=== PATIENT | male | born 1960 | race Caucasian/White ===

== ENCOUNTER 2019-02-27 16:33 | Emergency (ER) | payer OTHER ==
[~2019-02-27] VITALS: Ht 170.2 cm; Wt 95.2 kg
--- OUTSIDE RECORDS SUMMARY | ~2019-02-27 | XMS | Encounter Summary ---
Demographics + + + | Address | [address] | | | [place] [address] | + + + | Home Phone | | + + + | Preferred Language | Unknown | + + + | Marital Status | | + + + | Worship Affiliation | 1077 | + + + | Race | Unknown | + + + | Ethnic Group | Unknown | + + + Author + + + | Author | [facility] | | | and [place] | + + + | Organization | [facility] | | | and [place] | + + + | Address | Unknown | + + + | Phone | Unavailable | + + + Support + + + + + | Name | Relationship | Address | Phone | + + + + + | Aarti Hooks | ECON | [address] | | | | | [place] | | | | | [address] | | + + + + + Care Team Providers + +------+ + | Care Motorcycle Delivery Driver Name | Role | Phone | + [...] | Blood in | | [address], | | | | | stool Colon | | [place] [address] | | | | | cancer | | [place], | | | | | screening | | [place] [address] | | | | | Pacemaker | | Phone: | | | | | [Z95.0]Blood | | [phone] | | | | | in stool | | Fax: | | | | | [K92.1]Colon | | [phone] | | | | | cancer | | | | | | | screening | | | | | | | [Z12.11] | | | +--------+--------+ + + + + Encounter Details +--------+ + + + + | Date | Type | Department | Care Team | Description | +--------+ + + + + | 02/22/ | Hospital | [facility] | Gabe Lawton MD | Special screening | | 2015 | Encounter | MED CTR MP INTRA OP | [address], [place] | for malignant | | | | [address] | [address] [place], [place] | neoplasms, colon | | | | [place], [place] | [address] | (Primary Dx); Heme | | | | [address] | | positive stool | | | | [phone] | | | +--------+ + + + [...] [place] | | | | | | [address] | | | | | | | [...] [address] | [place] | [phone] | | [facility] | | [address] | | | - LABORATORY | | | | + + + + + EGD (02/22/2015 8:55 AM PST) + + | Specimen | + + | | + + + + -+ | Narrative | Performed At | + + -+ | | [facility] | | GastroenterologyPatient Name: Adis HooksProcedure Date: 02/22/2015 | [facility] | | 8:55 AMMRN: [id number] #: [id number] of : | | | 1Admit Type: AmbulatoryAge: 54Room: [facility] 01Gender: MaleNote | | | Status: FinalizedAttending MD: Gabe Lawton, MDProcedure: | | | Upper GI endoscopyIndications: Heme positive | | | stoolProviders: Gabe Lawton MD, Kerry Fall | | | NIKITA Goldberg, Angie Jackson, | | | Poured Wall Foreman, Renard Chow MD (Anesthesia | | | [...] the anesthesiologist and | | | the oncology technician in the endoscopy suite. Mental Status [...] Scope In: 9:09:15 AMScope Out: 9:12:40 AM [facility]. | | | [facility], [address] [place] [address] | | | [phone] | | | - Continue present medications. [...] |Scope Out: 9:12:40 AM | | | [facility]. [facility], [address] [place] [address] | | | [address] | | + + -+ + +---------+ [...] 02/22/2015 | [facility] | | 8:55 AMMRN: [id number] #: [id number] of : | | | 1Admit Type: AmbulatoryAge: 54Room: [facility] 01Gender: MaleNote | | | Status: FinalizedAttending MD: JOSE JUAN Baileyrocedure: | | | ColonoscopyIndications: Screening for colorectal malignant | | | neoplasmProviders: Gabe Lawton MD, Kerry Fall | | | NIKITA Goldberg, Angie Jackson, | | | Poured Wall Foreman, Renard Chow MD (Anesthesia | | | [...] the anesthesiologist and the | | | oncology technician in the endoscopy suite. Mental Status [...] AMScope Out: 9:23:26 AM | | | [facility] [address] [place], [place] | | | [address] | | | anti-inflammatory drugs for 7 [...] |Scope Out: 9:23:26 AM | | | [facility], [address] [facility] [address], [place], [place] | | | [address] | | + + -+ + +---------+ [...] POLYP SPECIMEN SOURCE: A. SIGMOID POLYP | [place] PATH[place] | | CLINICAL HISTORY: Z95.0 (presence [...] | | | Tubular adenoma (1 fragment). JVR:[facility]:C2NR GROSS | | | DESCRIPTION: Received in formalin labeled "Adis Sheets" and "sigmoid | | | polyp" on the requisition is a 0.3 x 0.3 x 0.2 cm pink-quintero tissue | | | fragment, submitted, all in (A1). ka:JVR:[facility] PERFORMING | | | LABORATORY: Tissue processing and slide preparation were performed by | | | [email or web address], [address], [place] [address] | | | (Benefit Authorizer: Easton Diallo M.D. CLIA#: [id number]). | | | Professional interpretation was performed by [email or web address], | | | [facility], [address] | | | [place] [address] (Benefit Authorizer: Easton Diallo M.D.; CLIA#: | | | [id number]). Diagnostician: Easton Diallo MD Pathologist | | [...]
--- OUTSIDE RECORDS SUMMARY | ~2019-02-27 | XMS | Encounter Summary ---
Demographics + + + | Address | [address] | | | [place] [address] | + + + | Home Phone | | + + + | Preferred Language | Unknown | + + + | Marital Status | | + + + | Holiness Affiliation | 1077 | + + + | Race | Unknown | + + + | Ethnic Group | Unknown | + + + Author + + + | Author | [facility] | | | and [place] | + + + | Organization | [facility] | | | and [place] | + + + | Address | Unknown | + + + | Phone | Unavailable | + + + Support + + + + + | Name | Relationship | Address | Phone | + + + + + | Aarti Sheets | ECON | [address] | | | | | [place] | | | | | [address] | | + + + + + Care Team Providers + +------+ + | Care Case Management Specialist Name | Role | Phone | + +------+ + PCP | Unavailable | + +------+ + Encounter Details +--------+ + + + + | Date | Type | Department | Care Team | Description | +--------+ + + + + | 10/13/ | Hospital | [facility] | | | | 1995 - | Encounter | MED CTR GENERIC IP | | | | | | CONV DEPT [address] | | | | 08/15/ | | [place], | | | | 1995 | | [place] [address] | | | | | | [phone] | | | +--------+ + + + + Social History + +-------+ +--------+------+ | Tobacco Use | Types | Packs/Day | Years | Date | | | | | Used | | + +-------+ +--------+------+ | Never Assessed | | | | | + +-------+ [...] | | | | | [place] | | | | | | [address] | | | | | | | | +--------+---------+ + + + documented as of this encounter Visit Diagnoses Not on filedocumented in this encounter"
--- OUTSIDE RECORDS SUMMARY | ~2019-02-27 | XMS | Encounter Summary ---
Demographics + + + | Address | [address] | | | [place] [address] | + + + | Home Phone | | + + + | Preferred Language | Unknown | + + + | Marital Status | | + + + | Mosque Affiliation | 1077 | + + + | Race | Unknown | + + + | Ethnic Group | Unknown | + + + Author + + + | Author | [facility] | | | and [place] | + + + | Organization | [facility] | | | and [place] | + + + | Address | Unknown | + + + | Phone | Unavailable | + + + Support + + + + + | Name | Relationship | Address | Phone | + + + + + | Aarti Hooks | ECON | [address] | | | | | [place] | | | | | [address] | | + + + + + Care Team Providers + +------+ + | Care Rural Health Consultant Name | Role | Phone | + [...] Medication Refill; | | 2018 | | [facility] | E, DO [address] | Medication Refill | | | | MEDICAL CLINIC [address] | [place], [place] | | | | | [address] [facility], | [address] | | | | | [place] [address] | [phone] | | | | | [phone] | | | +--------+--------+ + + + [...] [place] | | | | | | [address] | | | | | | | | +--------+---------+ + + + documented as of this encounter Visit Diagnoses Not on filedocumented in this encounter"
--- OUTSIDE RECORDS SUMMARY | ~2019-02-27 | XMS | Encounter Summary ---
Demographics + + + | Address | [address] | | | [place] [address] | + + + | Home Phone | | + + + | Preferred Language | Unknown | + + + | Marital Status | | + + + | Adventism Affiliation | 1077 | + + + | Race | Unknown | + + + | Ethnic Group | Unknown | + + + Author + + + | Author | [facility] | | | and [place] | + + + | Organization | [facility] | | | and [place] | + + + | Address | Unknown | + + + | Phone | Unavailable | + + + Support + + + + + | Name | Relationship | Address | Phone | + + + + + | Aarti Hooks | ECON | [address] | | | | | [place] | | | | | [address] | | + + + + + Care Team Providers + +------+ + | Care Art Class Model Name | Role | Phone | + [...] Description | +--------+--------+ + + + | 09/02/ | Refill | [facility] | Raul Pate | Medication Refill | | 2018 | | [facility] | E, DO [address] | | | | | MEDICAL CLIN[address] | [place], [place] | | | | | [address] [place], | [address] | | | | | [place] [address] | [phone] | | | | | [phone] | | | +--------+--------+ + + + [...] [place] | | | | | | [address] | | | | | | | | +--------+---------+ + + + documented as of this encounter Visit Diagnoses Not on filedocumented in this encounter"
--- OUTSIDE RECORDS SUMMARY | ~2019-02-27 | XMS | Encounter Summary ---
Demographics + + + | Address | [address] | | | [place] [address] | + + + | Home Phone | | + + + | Preferred Language | Unknown | + + + | Marital Status | | + + + | Hoahaoism Affiliation | 1077 | + + + | Race | Unknown | + + + | Ethnic Group | Unknown | + + + Author + + + | Author | [facility] | | | and [place] | + + + | Organization | [facility] | | | and [place] | + + + | Address | Unknown | + + + | Phone | Unavailable | + + + Support + + + + + | Name | Relationship | Address | Phone | + + + + + | Aarti Hooks | ECON | [address] | | | | | [place] | | | | | [address] | | + + + + + Care Team Providers + +------+ + | Care Bakery Manager Name | Role | Phone | + [...] Medication Refill | | 2018 | | [facility] | CC REAL ESTATE SALES SUPERVISOR | | | | | MEDICAL CLINIC [address] | | | | | | [address]TH [facility], | | | | | | [place] [address] | | | | | | [phone] | | | +--------+--------+ + + + [...] [place] | | | | | | [address] | | | | | | | | +--------+---------+ + + + documented as of this encounter Visit Diagnoses Not on filedocumented in this encounter"
--- OUTSIDE RECORDS SUMMARY | ~2019-02-27 | XMS | Encounter Summary ---
Demographics + + + | Address | [address] | | | [place] [address] | + + + | Home Phone | | + + + | Preferred Language | Unknown | + + + | Marital Status | | + + + | Mosque Affiliation | 1077 | + + + | Race | Unknown | + + + | Ethnic Group | Unknown | + + + Author + + + | Author | [facility] | | | and [place] | + + + | Organization | [facility] | | | and [place] | + + + | Address | Unknown | + + + | Phone | Unavailable | + + + Support + + + + + | Name | Relationship | Address | Phone | + + + + + | Aarti Hooks | ECON | [address] | | | | | [place] | | | | | [address] | | + + + + + Care Team Providers + +------+ + | Care Busgirl Name | Role | Phone | + +------+ + | Raul Pate DO | PCP | | + +------+ + Reason for Visit + + + | Reason | Comments | + + + | Device Check | | + + + Encounter Details +--------+ + + + + | Date | Type | Department | Care Team | Description | +--------+ + + + + | 01/05/ | Telephone | [facility] | Toni Durand, | Device Check | | 2019 | | CARDIOLOGY [facility] | [address] | | | | | [address] | [place], [place] | | | | | [place], [place] | [address] | | | | | [address] | | | | | | [phone] | | | +--------+ + + + [...] [place] | | | | | | [address] | | | | | | | | +--------+---------+ + + + documented as of this encounter Visit Diagnoses Not on filedocumented in this encounter"
--- OUTSIDE RECORDS SUMMARY | ~2019-02-27 | XMS | Encounter Summary ---
Demographics + + + | Address | [address] | | | [place] [address] | + + + | Home Phone | | + + + | Preferred Language | Unknown | + + + | Marital Status | | + + + | Confucianism Affiliation | 1077 | + + + | Race | Unknown | + + + | Ethnic Group | Unknown | + + + Author + + + | Author | [facility] | | | and [place] | + + + | Organization | [facility] | | | and [place] | + + + | Address | Unknown | + + + | Phone | Unavailable | + + + Support + + + + + | Name | Relationship | Address | Phone | + + + + + | Aarti Hooks | ECON | [address] | | | | | [place] | | | | | [address] | | + + + + + Care Team Providers + +------+ + | Care Cook Boat Name | Role | Phone | + +------+ + | Raul Pate DO | PCP | | + +------+ + Reason for Visit +--------+ + | Reason | Comments | +--------+ + | Rash | | +--------+ + Encounter Details +--------+---------+ + + + | Date | Type | Department | Care Team | Description | +--------+---------+ + + + | 05/27/ | Office | [facility] | Robert, | Cellulitis of left | | 2019 | Visit | [facility] | [facility], [address] | lower limb (Primary | | | | MEDICAL CLIN[address] | [address] [place] | Dx) | | | | [address] [place], | [place] [address] | | | | | [place] [address] | [phone] | | | | | [phone] | | | +--------+---------+ + + + Social History + +-------+ [...] + + + | Blood Pressure | 108/70 | 05/27/2018 10:40 AM | | | | | PDT | | + + + + + | Pulse | 61 | 05/27/2018 10:40 AM | | | | | PDT | | + + + + + | Temperature | 36.6 C (97.8 F) | 05/27/2018 10:40 AM | | | | | PDT | | + + + + + | Respiratory Rate | 16 | 05/27/2018 10:40 AM | | | | | PDT | | + + + + + | Oxygen Saturation | 98% | 05/27/2018 10:40 AM | | | | | PDT | | + + + + + | Inhaled Oxygen | - | - | | | Concentration | | | | + + + + + | Weight | - | - | | + + + + + | Height | - | - | | + + + + + | Body Mass Index | - | - | | + + + + + documented in this encounter Progress Notes Janice Jones, ANDREW - 05/27/2018 11:00 AM PDTFormatting of this note might be differe nt from the original. Chief Complaint Patient presents with Rash Assessment 1. Cellulitis of left lower limb - sulfamethoxazole-trimethoprim (BACTRIM DS) 800-160 mg per tablet; Take 1 tablet by mouth 2 times daily for 10 days. Dispense: 20 tablet; Refill: 0 Plan - increase fluid intake - start antibiotic - RTC prn Subjective: Patient ID: Adis Hooks is a 57 y.o. male who is new to me, complains of Rash This is a new problem. Episode onset: 2 weeks ago [place] He hit th e leg and got a small cut and it bled a little and then after it got red and itchy. The affe cted locations include the left lower leg. The rash is characterized by burning, redness and itchiness. Associated with: being in the outdoors. Treatments tried: gold jansen cream. The t reatment provided no relief. he stated that last week the area was more "angry" looking than now. Objective: BP 108/70 | Pulse 61 | Temp 36.6 C (97.8 F) (Temporal) | Resp 16 | SpO2 98% Physical Exam Skin: Rash noted. Rash is macular. Patient was scratching so there are small areas with scab scattered through the inflamed ar ea Past Medical History: Diagnosis Date Allergic rhinitis Hemorrhoids Sinusitis Allergies Allergen Reactions Penicillins Hives and Rash Codeine Nausea Only Electronically signed by ANDREW Adhikari 05/27/2018 10:54 Note: Part of this report was transcribed using voice recognition software. Every effort wa s made to ensure accuracy. However, inadvertent computerized aluminum siding applicator errors may be pre sent documented constantine peguero this encounter Plan of Treatment +--------+---------+ + + + | Date | Type | Specialty | Care Team | Description | +--------+---------+ + + + | 09/21/ | Office | Cardiology | Toni Durand, | | | 2019 | Visit | | MD Jesus RUGGIERO | | | | | | [place], [place] | | | | | | [id number] | | | | | | | | +--------+---------+ + + + documented as of this encounter Visit Diagnoses + + | Diagnosis | + + | Cellulitis of left lower limb - Primary | + + documented in this encounter
--- OUTSIDE RECORDS SUMMARY | ~2019-02-27 | XMS | Encounter Summary ---
Demographics + + + | Address | [address] | | | [place] [address] | + + + | Home Phone | | + + + | Preferred Language | Unknown | + + + | Marital Status | | + + + | Anabaptist Affiliation | 1077 | + + + | Race | Unknown | + + + | Ethnic Group | Unknown | + + + Author + + + | Author | [facility] | | | and [place] | + + + | Organization | [facility] | | | and [place] | + + + | Address | Unknown | + + + | Phone | Unavailable | + + + Support + + + + + | Name | Relationship | Address | Phone | + + + + + | Aarti Hooks | ECON | [address] | | | | | [place] | | | | | [address] | | + + + + + Care Team Providers + +------+ + | Care Ux Visual Designer Name | Role | Phone | + +------+ + | Raul Pate DO | PCP | | + +------+ + Reason for Visit +---------+ + | Reason | Comments | +---------+ + | Imaging | | +---------+ + Encounter Details +--------+ + + + + | Date | Type | Department | Care Team | Description | +--------+ + + + + | 02/25/ | Telephone | [facility] | Raul Pate | Imaging | | 2019 | | [facility] | E, DO [address] | | | | | MEDICAL CLIN[facility] [address] | [place], [place] | | | | | [address] [place], | [address] | | | | | [place] [address] | [phone] | | | | | [phone] | | | +--------+ + + + [...] [place] | | | | | | [address] | | | | | | | | +--------+---------+ + + + documented as of this encounter Visit Diagnoses Not on filedocumented in this encounter"
--- OUTSIDE RECORDS SUMMARY | ~2019-02-27 | XMS | Encounter Summary ---
Demographics + + + | Address | [address] | | | [place] [address] | + + + | Home Phone | | + + + | Preferred Language | Unknown | + + + | Marital Status | | + + + | Mormon Affiliation | 1077 | + + + | Race | Unknown | + + + | Ethnic Group | Unknown | + + + Author + + + | Author | [facility] | | | and [place] | + + + | Organization | [facility] | | | and [place] | + + + | Address | Unknown | + + + | Phone | Unavailable | + + + Support + + + + + | Name | Relationship | Address | Phone | + + + + + | Aarti Hooks | ECON | [address] | | | | | [place] | | | | | [address] | | + + + + + Care Team Providers + +------+ + | Care Waistline Joiner Overlock Name | Role | Phone | + [...] Description | +--------+--------+ + + + | 10/15/ | Refill | [facility] | Raul Pate | Medication Refill | | 2018 | | [facility] | E, DO [address] | | | | | MEDICAL CLINIC [address] | [place], [place] | | | | | [address] [place], | [address] | | | | | [place] [address] | [phone] | | | | | [phone] | | | +--------+--------+ + + + [...] [place] | | | | | | [address] | | | | | | | | +--------+---------+ + + + documented as of this encounter Visit Diagnoses Not on filedocumented in this encounter"
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
--- OUTSIDE RECORDS SUMMARY | ~2019-02-27 | XMS | Encounter Summary ---
Demographics + + + | Address | [address] | | | [place] [address] | + + + | Home Phone | | + + + | Preferred Language | Unknown | + + + | Marital Status | | + + + | Restorationist Affiliation | 1077 | + + + | Race | Unknown | + + + | Ethnic Group | Unknown | + + + Author + + + | Author | [facility] | | | and [place] | + + + | Organization | [facility] | | | and [place] | + + + | Address | Unknown | + + + | Phone | Unavailable | + + + Support + + + + + | Name | Relationship | Address | Phone | + + + + + | Aarti Hooks | ECON | [address] | | | | | [place] | | | | | [address] | | + + + + + Care Team Providers + +------+ + | Care Muck Miner Blasting Name | Role | Phone | + [...] Description | +--------+--------+ + + + | 03/10/ | Refill | [facility] | Raul Pate | Medication Refill | | 2018 | | [facility] | E, DO [address] | | | | | MEDICAL CLINIC [address] | [place], [place] | | | | | [address] [place], | [address] | | | | | [place] [address] | [phone] | | | | | [phone] | | | +--------+--------+ + + + [...] | | | | | [place], [place] | | | | | | [address] | | | | | | | | +--------+---------+ + + + documented as of this encounter Visit Diagnoses + + | Diagnosis | + + | Allergic rhinitis due to other allergic trigger, unspecified seasonality | + + documented in this encounter"
--- OUTSIDE RECORDS SUMMARY | ~2019-02-27 | XMS | Encounter Summary ---
Demographics + + + | Address | [address] | | | [place] [address] | + + + | Home Phone | | + + + | Preferred Language | Unknown | + + + | Marital Status | | + + + | Muslim Affiliation | 1077 | + + + | Race | Unknown | + + + | Ethnic Group | Unknown | + + + Author + + + | Author | [facility] | | | and [place] | + + + | Organization | [facility] | | | and [place] | + + + | Address | Unknown | + + + | Phone | Unavailable | + + + Support + + + + + | Name | Relationship | Address | Phone | + + + + + | Aarti Sheets | ECON | [address] | | | | | [place] | | | | | [address] | | + + + + + Care Team Providers + +------+ + | Care Insulation Board Head Saw Operator Name | Role | Phone | + +------+ + PCP | Unavailable | + +------+ + Encounter Details +--------+ + + + + | Date | Type | Department | Care Team | Description | +--------+ + + + + | 03/30/ | Hospital | [facility] | Oneal Cuenca MD | | | 1998 - | Encounter | MED CTR MED ONC | [address] | | | | | [address] | [place] | | | 04/07/ | | [place] [address] | [address] | | | 1998 | | [phone] | | | +--------+ + + + [...] | 09/21/ | Office | Cardiology | Toin Durand, | | | 2019 | Visit | | MD Jesus RUGGIERO | | | | | | [place] | | | | | | [address] | | | | | | | | +--------+---------+ + + + documented as of this encounter Visit Diagnoses Not on filedocumented in this encounter"
--- OUTSIDE RECORDS SUMMARY | ~2019-02-27 | XMS | Encounter Summary ---
Demographics + + + | Address | [address] | | | [place] [address] | + + + | Home Phone | | + + + | Preferred Language | Unknown | + + + | Marital Status | | + + + | Rastafari Affiliation | 1077 | + + + | Race | Unknown | + + + | Ethnic Group | Unknown | + + + Author + + + | Author | [facility] | | | and [place] | + + + | Organization | [facility] | | | and [place] | + + + | Address | Unknown | + + + | Phone | Unavailable | + + + Support + + + + + | Name | Relationship | Address | Phone | + + + + + | Aarti Sheets | ECON | [address] | | | | | [place] | | | | | [address] | | + + + + + Care Team Providers + +------+ + | Care Sack Filler Name | Role | Phone | + +------+ + PCP | Unavailable | + +------+ + Encounter Details +--------+ + + + + | Date | Type | Department | Care Team | Description | +--------+ + + + + | 10/05/ | Hospital | [facility] | | | | 1994 | Encounter | MED CTR EMERGENCY | | | | | | [address] | | | | | | [place] | | | | | | [address] | | | | | | [phone] | | | +--------+ + + + [...] | | | | | [place], [place] | | | | | | [address] | | | | | | | | +--------+---------+ + + + documented as of this encounter Visit Diagnoses Not on filedocumented in this encounter"
--- OUTSIDE RECORDS SUMMARY | ~2019-02-27 | XMS | Encounter Summary ---
Demographics + + + | Address | [address] | | | [place] [address] | + + + | Home Phone | | + + + | Preferred Language | Unknown | + + + | Marital Status | | + + + | Sabianist Affiliation | 1077 | + + + [...] + | Aarti Hooks | ECON | [address] | | | | | [place] | | | | | [address] | | + + + + + Care Team Providers + +------+ + | Care Embroidery Machine Operator Name | Role | Phone | [...] | Blood in | | [address], | | | | | stool Colon | | [address] | | | | | cancer | | [place], | | | | | screening | | [place] [address] | | | | | Pacemaker | | Phone: | | | | | [Z95.0]Blood | | [phone] | | | | | in stool | | Fax: | | | | | [K92.1]Colon | | [phone] | | | | | cancer | | | | | | | screening | | | | | | | [Z12.11] | | | +--------+--------+ + + + + Encounter Details +--------+ + + + + | Date | Type | Department | Care Team | Description | +--------+ + + + + | 02/22/ | Hospital | [facility] | Gabe Lawton MD | Special screening | | 2015 | Encounter | MED CTR MP INTRA OP | [address], [place] | for malignant | | | | [address] | [address] [place], [place] | neoplasms, colon | | | | [place], [place] | [address] | (Primary Dx); Heme | | | | [address] | | positive stool | | | | [phone] | | | +--------+ + + + [...] [place] | | | | | | [address] | | | | | | | [...] [address] | [place] | [phone] | | [facility] | | [address] | | | - LABORATORY | | | | + + + + + EGD (02/22/2015 8:55 AM PST) + + | Specimen | + + | | + + + + -+ | Narrative | Performed At | + + -+ | | [facility] | | GastroenterologyPatient Name: Adis HooksProcedure Date: 02/22/2015 | [facility] | | 8:55 AMMRN: [id number] #: [id number] of : | | | 1Admit Type: AmbulatoryAge: 54[facility]Gender: MaleNote | | | Status: FinalizedAttending MD: Gabe Lawton, MDProcedure: | | | Upper GI endoscopyIndications: Heme positive | | | stoolProviders: Gabe Lawton MD, Kerry Fall | | | NIKITA Goldberg, Angie Jackson, | | | Manager Of Network, Renard Chow MD (Anesthesia | | | [...] the anesthesiologist and | | | the mechanical sound technician in the endoscopy suite. Mental Status [...] Scope In: 9:09:15 AMScope Out: 9:12:40 AM [facility]. | | | [facility], [address] [place] [address] | | | [phone] | | | - Continue present medications. [...] |Scope Out: 9:12:40 AM | | | [facility]. [facility], [address] [place] [address] | | | [address] | | + + -+ + +---------+ [...] 02/22/2015 | [facility] | | 8:55 AMMRN: [id number] #: [id number] of : | | | 1Admit Type: AmbulatoryAge: 54[facility]Gender: MaleNote | | | Status: FinalizedAttending MD: JOSE JUAN Baileyrocedure: | | | ColonoscopyIndications: Screening for colorectal malignant | | | neoplasmProviders: Gabe Lawton MD, Kerry Fall | | | NIKITA Goldberg, Angie Jackson, | | | Manager Of Network, Renard Chow MD (Anesthesia | | | [...] the anesthesiologist and the | | | mechanical sound technician in the endoscopy suite. Mental Status [...] AMScope Out: 9:23:26 AM | | | [facility], [facility] [place], [place] | | | [address] | | | anti-inflammatory drugs for 7 [...] |Scope Out: 9:23:26 AM | | | [facility], [address] [facility], [place], [place] | | | [address] | | + + -+ + +---------+ [...] POLYP SPECIMEN SOURCE: A. SIGMOID POLYP | [place] [facility] | | CLINICAL HISTORY: Z95.0 (presence [...] | | | Tubular adenoma (1 fragment). JVR:[facility]:C2NR GROSS | | | DESCRIPTION: Received in formalin labeled "Adis Sheets" and "sigmoid | | | polyp" on the requisition is a 0.3 x 0.3 x 0.2 cm pink-quintero tissue | | | fragment, submitted, all in (A1). ka:JVR:[facility] PERFORMING | | | LABORATORY: Tissue processing and slide preparation were performed by | | | [facility], [address] [facility] [address], [place] [address] | | | (Contact Acid Plant Operator Helper: Easton Diallo M.D. CLIA#: [id number]). | | | Professional interpretation was performed by [facility], | | | [facility], [address] | | | [place] [address] (Contact Acid Plant Operator Helper: Easton Diallo M.D.; CLIA#: | | | [id number]). Diagnostician: Easton Diallo MD Pathologist | | [...]
--- OUTSIDE RECORDS SUMMARY | ~2019-02-27 | XMS | Encounter Summary ---
Demographics + + + | Address | [address] | | | [place] [address] | + + + | Home Phone | | + + + | Preferred Language | Unknown | + + + | Marital Status | | + + + | Adventist Affiliation | 1077 | + + + | Race | Unknown | + + + | Ethnic Group | Unknown | + + + Author + + + | Author | [facility] | | | and [place] | + + + | Organization | [facility] | | | and [place] | + + + | Address | Unknown | + + + | Phone | Unavailable | + + + Support + + + + + | Name | Relationship | Address | Phone | + + + + + | Aarti Hooks | ECON | [address] | | | | | [place] | | | | | [address] | | + + + + + Care Team Providers + +------+ + | Care Blower Room Attendant Name | Role | Phone | + [...] Medication Refill | | 2018 | | [facility] | E, DO [address] | | | | | MEDICAL CLIN[address] | [place], [place] | | | | | [address] [place], | [address] | | | | | [place] [address] | [phone] | | | | | [phone] | | | +--------+--------+ + + + [...] | | | | | [place], [place] | | | | | | [address] | | | | | | | | +--------+---------+ + + + documented as of this encounter Visit Diagnoses Not on filedocumented in this encounter"
--- OUTSIDE RECORDS SUMMARY | ~2019-02-27 | XMS | Encounter Summary ---
Demographics + + + | Address | [address] | | | [place] [address] | + + + | Home Phone | | + + + | Preferred Language | Unknown | + + + | Marital Status | | + + + | Anglican Affiliation | 1077 | + + + | Race | Unknown | + + + | Ethnic Group | Unknown | + + + Author + + + | Author | [facility] | | | and [place] | + + + | Organization | [facility] | | | and [place] | + + + | Address | Unknown | + + + | Phone | Unavailable | + + + Support + + + + + | Name | Relationship | Address | Phone | + + + + + | Aarti Hooks | ECON | [address] | | | | | [place] | | | | | [address] | | + + + + + Care Team Providers + +------+ + | Care Bank Advisor Name | Role | Phone | + [...] | | [address] [place], | [address] | | | | | [place] [address] | [phone] | | | | | [phone] | | | +--------+ + + + [...] [place] | | | | | | [address] | | | | | | | | +--------+---------+ + + + documented as of this encounter Visit Diagnoses Not on filedocumented in this encounter"
--- OUTSIDE RECORDS SUMMARY | ~2019-02-27 | XMS | Encounter Summary ---
Demographics + + + | Address | [address] | | | [place] [address] | + + + | Home Phone [...] + | Aarti Hooks | ECON | [address] | | | | | [place] | | | | | [address] | | + + + + + Care Team Providers + +------+ + | Care Nuclear Power Reactor Operator Name | Role | Phone | [...] | 2018 | | [facility] | [facility] [address] [place] | | | | | MEDICAL CLIN[address] | [place] [address] | | | | | [address] [place], | [phone] | | | | | [place] [address] | | | | | | [phone] | | | +--------+--------+ + + + [...] | | | | | [place], [place] | | | | | | [address] | | | | | | | | +--------+---------+ + + + documented as of this encounter Visit Diagnoses + + | Diagnosis | + + | Allergic rhinitis due to other allergic trigger, unspecified seasonality | + + documented in this encounter"
--- OUTSIDE RECORDS SUMMARY | ~2019-02-27 | XMS | Encounter Summary ---
Demographics + + + | Address | [address] | | | [place] [address] | + + + | Home Phone | | + + + | Preferred Language | Unknown | + + + | Marital Status | | + + + | Temple Affiliation | 1077 | + + + | Race | Unknown | + + + | Ethnic Group | Unknown | + + + Author + + + | Author | [facility] | | | and [place] | + + + | Organization | [facility] | | | and [place] | + + + | Address | Unknown | + + + | Phone | Unavailable | + + + Support + + + + + | Name | Relationship | Address | Phone | + + + + + | Aarti Hooks | ECON | [address] | | | | | [place] | | | | | [address] | | + + + + + Care Team Providers + +------+ + | Care Miller Supervisor Name | Role | Phone | + [...] Medication Refill | | 2017 | | [facility] | E, DO [address] | | | | | MEDICAL CLINIC [address] | [place], [place] | | | | | [address] [place], | [address] | | | | | [place] [address] | [phone] | | | | | [phone] | | | +--------+--------+ + + + [...] | | | | | [place], [place] | | | | | | [address] | | | | | | | | +--------+---------+ + + + documented as of this encounter Visit Diagnoses + + | Diagnosis | + + | Allergic rhinitis due to other allergic trigger, unspecified seasonality | + + documented in this encounter"
--- OUTSIDE RECORDS SUMMARY | ~2019-02-27 | XMS | Encounter Summary ---
Demographics + + + | Address | [address] | | | [place] [address] | + + + | Home Phone | | + + + | Preferred Language | Unknown | + + + | Marital Status | | + + + | Anabaptism Affiliation | 1077 | + + + | Race | Unknown | + + + | Ethnic Group | Unknown | + + + Author + + + | Author | [facility] | | | and [place] | + + + | Organization | [facility] | | | and [place] | + + + | Address | Unknown | + + + | Phone | Unavailable | + + + Support + + + + + | Name | Relationship | Address | Phone | + + + + + | Aarti Hooks | ECON | [address] | | | | | [place] | | | | | [address] | | + + + + + Care Team Providers + +------+ + | Care Android Programmer Name | Role | Phone | + [...] | Blood in | | [address], | | | | | stool Colon | | [address] | | | | | cancer | | [place], | | | | | screening | | [place] [address] | | | | | Pacemaker | | Phone: | | | | | [Z95.0]Blood | | [phone] | | | | | in stool | | Fax: | | | | | [K92.1]Colon | | [phone] | | | | | cancer | | | | | | | screening | | | | | | | [Z12.11] | | | +--------+--------+ + + + + Encounter Details +--------+---------+ + + + | Date | Type | Department | Care Team | Description | +--------+---------+ + + + | 02/22/ | Surgery | [facility] | Gabe Lawton MD | EGD / COLONOSCOPY | | 2014 | | MED CTR MP INTRA OP | [address], [place] | - PACEMAKER | | | | [address] | [address] [place], [place] | | | | | [place], [place] | [address] | | | | | [address] | | | | | | [phone] | | | +--------+---------+ + + + [...] RUGGIERO | | | | | | [place] | | | | | | [address] | | | | | | | [...] r pylori Ag | | | [facility] | | | | | | MEDICAL [...] | + + + + + | [address] | [address] | [place] | [phone] | | [facility] | | [address] | | | - LABORATORY | | | | + + + + + EGD (02/22/2015 8:55 AM PST) + + | Specimen | + + | | + + + + -+ | Narrative | Performed At | + + -+ | | [facility] | | GastroenterologyPatient Name: Adis HooksProcedure Date: 02/22/2015 | [facility] | | 8:55 AMMRN: [id number] #: [id number] of : | | | 1960dmit Type: AmbulatoryAge: 54Room: [facility] 01Gender: MaleNote | | | Status: FinalizedAttending MD: Gabe Lawton, MDProcedure: | | | Upper GI endoscopyIndications: Heme positive | | | stoolProviders: Gabe Lawton MD, Kerry Fall | | | NIKITA Goldberg, Angie Jackson, | | | Anesthesiologist Assistant, Renard Chow MD (Anesthesia | | | [...] the anesthesiologist and | | | the model technician in the endoscopy suite. Mental Status [...] Scope In: 9:09:15 AMScope Out: 9:12:40 AM [facility]. | | | [facility], [address] [place] [address] | | | [phone] | | | - Continue present medications. [...] |Scope Out: 9:12:40 AM | | | [facility]. [facility], [address] [place] [address] | | | [address] | | + + -+ + +---------+ [...] | [facility] | | GastroenterologyPatient Name: Adis Idania Date: 02/22/2015 | [facility] | | 8:55 [facility]: [id number] #: [id number] of : | | | 1Admit Type: AmbulatoryAge: 54Room: [facility] 01Gender: MaleNote | | | Status: FinalizedAttending MD: Gabe Lawton MDProcedure: | | | ColonoscopyIndications: Screening for colorectal malignant | | | neoplasmProviders: Gabe Lawton MD, Kerry Fall | | | NIKITA Goldberg, Angie Jackson, | | | Anesthesiologist Assistant, Renard Chow MD (Anesthesia | | | [...] the anesthesiologist and the | | | model technician in the endoscopy suite. Mental Status [...] AMScope Out: 9:23:26 AM | | | [facility], [address] [place], [place] | | | [address] | | | anti-inflammatory drugs for 7 [...] |Scope Out: 9:23:26 AM | | | [facility], [address] , [place], [place] | | | [address] | | + + -+ + +---------+ [...] POLYP SPECIMEN SOURCE: A. SIGMOID POLYP | [place] PATHOLOGY | | CLINICAL HISTORY: Z95.0 (presence [...] | | | Tubular adenoma (1 fragment). JVR:[facility]:C2NR GROSS | | | DESCRIPTION: Received in formalin labeled "Adis Sheets" and "sigmoid | | | polyp" on the requisition is a 0.3 x 0.3 x 0.2 cm pink-quintero tissue | | | fragment, submitted, all in (A1). ka:JVR:[facility] PERFORMING | | | LABORATORY: Tissue processing and slide preparation were performed by | | | [facility], [address], [place] [address] | | | (Pipe Washer: aEston Diallo M.D. CLIA#: [id number]). | | | Professional interpretation was performed by [facility], | | | [facility], [address] | | | [place] [address] (Pipe Washer: Easton Diallo M.D.; CLIA#: | | | [id number]). Diagnostician: Easton Diallo MD Pathologist | | [...] | Diagnosis | + + | Pacemaker Cardiac pacemaker in situ | + + | Blood in stool | + + | Colon cancer screening Special screening for malignant neoplasms, colon | + + documented in this encounter [...] +------+------+------+ +---------+ +---+-------+---+ | New Bag | 02/22/20 | | 100 | | | | 15 8:26 | | mL/hr | | | | AM PST | | | | +---------+ +---+-------+---+ +---+---+ | | | +---+---+ documented in this encounter
--- OUTSIDE RECORDS SUMMARY | ~2019-02-27 | XMS | Encounter Summary ---
Demographics + + + | Address | [address] | | | [place] [address] | + + + | Home Phone | | + + + | Preferred Language | Unknown | + + + | Marital Status | | + + + | Zoroastrianism Affiliation | 1077 | + + + [...] + | Aarti Hooks | ECON | [address] | | | | | [place] | | | | | [address] | | + + + + + Care Team Providers + +------+ + | Care Railroad Signal Operator Name | Role | Phone | + +------+ + | Raul Pate DO | PCP | | + +------+ + Reason for Visit + + + | Reason | Comments | + + + | Insulin Syringe | | | Pre-fill | | + + + Encounter Details +--------+--------+ + + + | Date | Type | Department | Care Team | Description | +--------+--------+ + + + | 01/04/ | Refill | [facility] | Brittney Choe, | Insulin Syringe | | 2018 | | [facility] | CC ENTERTAINMENT AGENT | Pre-fill | | | | MEDICAL CLINIC [address] | | | | | | [address] [facility], | | | | | | [place] [address] | | | | | | [phone] | | | +--------+--------+ + + + [...] [place] | | | | | | [address] | | | | | | | | +--------+---------+ + + + documented as of this encounter Visit Diagnoses Not on filedocumented in this encounter"
--- OUTSIDE RECORDS SUMMARY | ~2019-02-27 | XMS | Encounter Summary ---
Demographics + + + | Address | [address] | | | [place] [address] | + + + | Home Phone | | + + + | Preferred Language | Unknown | + + + | Marital Status | | + + + | Anabaptist Affiliation | 1077 | + + + | Race | Unknown | + + + | Ethnic Group | Unknown | + + + Author + + + | Author | [facility] | | | and [place] | + + + | Organization | [facility] | | | and [place] | + + + | Address | Unknown | + + + | Phone | Unavailable | + + + Support + + + + + | Name | Relationship | Address | Phone | + + + + + | Aarti Hooks | ECON | [address] | | | | | [place] | | | | | [address] | | + + + + + Care Team Providers + +------+ + | Care Lump Receiver Name | Role | Phone | + [...] Description | +--------+--------+ + + + | 10/14/ | Refill | [facility] | Chaya Mccrary M, CC | Medication Refill | | 2018 | | [facility] | [facility] | | | | | MEDICAL CLIN[address] | | | | | | [address] [facility], | | | | | | [place] [address] | | | | | | [phone] | | | +--------+--------+ + + + [...] [place] | | | | | | [address] | | | | | | | | +--------+---------+ + + + documented as of this encounter Visit Diagnoses Not on filedocumented in this encounter"
--- OUTSIDE RECORDS SUMMARY | ~2019-02-27 | XMS | Encounter Summary ---
Demographics + + + | Address | [address] | | | [place] [address] | + + + | Home Phone | | + + + | Preferred Language | Unknown | + + + | Marital Status | | + + + | Moravian Affiliation | 1077 | + + + | Race | Unknown | + + + | Ethnic Group | Unknown | + + + Author + + + | Author | [facility] | | | and [place] | + + + | Organization | [facility] | | | and [place] | + + + | Address | Unknown | + + + | Phone | Unavailable | + + + Support + + + + + | Name | Relationship | Address | Phone | + + + + + | Aarti Hooks | ECON | [address] | | | | | [place] | | | | | [address] | | + + + + + Care Team Providers + +------+ + | Care Qualified Craft Worker Electrician Name | Role | Phone | + [...] | Blood in | | [address], | | | | | stool Colon | | [place] [address] | | | | | cancer | | [place], | | | | | screening | | [place] [address] | | | | | Pacemaker | | Phone: | | | | | [Z95.0]Blood | | [phone] | | | | | in stool | | Fax: | | | | | [K92.1]Colon | | [phone] | | | | | cancer | | | | | | | screening | | | | | | | [Z12.11] | | | +--------+--------+ + + + + Encounter Details +--------+---------+ + + + | Date | Type | Department | Care Team | Description | +--------+---------+ + + + | 02/22/ | Surgery | [facility] | Gabe Lawton MD | EGD / COLONOSCOPY | | 2014 | | MED CTR MP INTRA OP | [address], [place] | - PACEMAKER | | | | [address] | [address] [place], [place] | | | | | [place], [place] | [address] | | | | | [address] | | | | | | [phone] | | | +--------+---------+ + + + [...] | | | | | [place] | | | | | | [address] | | | | | | | [...] r pylori Ag | | | [facility] | | | | | | MEDICAL [...] [address] | [place] | [phone] | | [facility] | | [address] | | | - LABORATORY | | | | + + + + + EGD (02/22/2015 8:55 AM PST) + + | Specimen | + + | | + + + + -+ | Narrative | Performed At | + + -+ | | [facility] | | GastroenterologyPatient Name: Adis HooksProcedure Date: 02/22/2015 | [facility] | | 8:55 AMMRN: [id number] #: [id number] of : | | | 1960dmit Type: AmbulatoryAge: 54Room: [facility] 01Gender: MaleNote | | | Status: FinalizedAttending MD: Gabe Lawton, MDProcedure: | | | Upper GI endoscopyIndications: Heme positive | | | stoolProviders: Gabe Lawton MD, Kerry Fall | | | NIKITA Goldberg, Angie Jackson, | | | Roll Line Operator, Renard Chow MD (Anesthesia | | | [...] the anesthesiologist and | | | the survey field technician in the endoscopy suite. Mental Status [...] Scope In: 9:09:15 AMScope Out: 9:12:40 AM [facility]. | | | [facility], [address] [place] [address] | | | [phone] | | | - Continue present medications. [...] |Scope Out: 9:12:40 AM | | | [facility]. [facility], [address] [place] [address] | | | [address] | | + + -+ + +---------+ [...] Date: 02/22/2015 | [facility] | | 8:55 [facility]: [id number] #: [id number] of : | | | 1Admit Type: AmbulatoryAge: 54Room: [facility] 01Gender: MaleNote | | | Status: FinalizedAttending MD: Gabe Lawton MDProcedure: | | | ColonoscopyIndications: Screening for colorectal malignant | | | neoplasmProviders: Gabe Lawton MD, Kerry Fall | | | NIKITA Goldberg, Angie Jackson, | | | Roll Line Operator, Renard Chow MD (Anesthesia | | | [...] the anesthesiologist and the | | | survey field technician in the endoscopy suite. Mental Status [...] AMScope Out: 9:23:26 AM | | | [facility], [address], [place] | | | [address] | | | anti-inflammatory drugs for 7 [...] |Scope Out: 9:23:26 AM | | | [facility], [address] , [place], [place] | | | [address] | | + + -+ + +---------+ [...] POLYP SPECIMEN SOURCE: A. SIGMOID POLYP | [place] [facility] | | CLINICAL HISTORY: Z95.0 (presence [...] | | | Tubular adenoma (1 fragment). JVR:[facility]:C2NR GROSS | | | DESCRIPTION: Received in formalin labeled "Adis Sheets" and "sigmoid | | | polyp" on the requisition is a 0.3 x 0.3 x 0.2 cm pink-quintero tissue | | | fragment, submitted, all in (A1). ka:JVR:[facility] PERFORMING | | | LABORATORY: Tissue processing and slide preparation were performed by | | | [facility], [address], [place] [address] | | | (Experience Planning Strategist: Easton Diallo M.D. CLIA#: [id number]). | | | Professional interpretation was performed by [facility], | | | [facility], [address] | | | [place] [address] (Experience Planning Strategist: Easton Diallo M.D.; CLIA#: | | | [id number]). Diagnostician: Easton Diallo MD Pathologist | | [...]
--- OUTSIDE RECORDS SUMMARY | ~2019-02-27 | XMS | Encounter Summary ---
Demographics + + + | Address | [address] | | | [place] [address] | + + + | Home Phone | | + + + | Preferred Language | Unknown | + + + | Marital Status | | + + + | Orthodox Affiliation | 1077 | + + + | Race | Unknown | + + + | Ethnic Group | Unknown | + + + Author + + + | Author | [facility] | | | and [place] | + + + | Organization | [facility] | | | and [place] | + + + | Address | Unknown | + + + | Phone | Unavailable | + + + Support + + + + + | Name | Relationship | Address | Phone | + + + + + | Aarti Hooks | ECON | [address] | | | | | [place] | | | | | [address] | | + + + + + Care Team Providers + +------+ + | Care Secondary Education Professor Name | Role | Phone | + [...] | | [address] [place], | [address] | | | | | [place] [address] | [phone] | | | | | [phone] | | | +--------+ + + + [...] [place] | | | | | | [address] | | | | | | | | +--------+---------+ + + + documented as of this encounter Visit Diagnoses Not on filedocumented in this encounter"
--- OUTSIDE RECORDS SUMMARY | ~2019-02-27 | XMS | Encounter Summary ---
Demographics + + + | Address | [address] | | | [place] [address] | + + + | Home Phone | | + + + | Preferred Language | Unknown | + + + | Marital Status | | + + + | Hoahaoism Affiliation | 1077 | + + + | Race | Unknown | + + + | Ethnic Group | Unknown | + + + Author + + + | Author | [facility] | | | and [place] | + + + | Organization | [facility] | | | and [place] | + + + | Address | Unknown | + + + | Phone | Unavailable | + + + Support + + + + + | Name | Relationship | Address | Phone | + + + + + | Aarti Hooks | ECON | [address] | | | | | [place] | | | | | [address] | | + + + + + Care Team Providers + +------+ + | Care Crm Analyst Name | Role | Phone | + [...] + + | 02/28/ | Telephone | [facility] | Gabe Lawton MD | Results, Pathology | | 2014 | | GASTROENTEROLOGY | [address], [place] | | | | | [address] [place] | [address] [place], [place] | | | | | [address] [place], [place] | [address] | | | | | [address] | | | | | | [phone] | | | +--------+ + + + [...] [place] | | | | | | [address] | | | | | | | | +--------+---------+ + + + documented as of this encounter Visit Diagnoses Not on filedocumented in this encounter"
--- OUTSIDE RECORDS SUMMARY | ~2019-02-27 | XMS | Encounter Summary ---
Demographics + + + | Address | [address] | | | [place] [address] | + + + | Home Phone | | + + + | Preferred Language | Unknown | + + + | Marital Status | | + + + | Quaker Affiliation | 1077 | + + + [...] + | Aarti Hooks | ECON | [address] | | | | | [place] | | | | | [address] | | + + + + + Care Team Providers + +------+ + | Care Hris Developer Name | Role | Phone | + [...] Medication Refill | | 2018 | | [facility] | CC SALES DEVELOPMENT EXECUTIVE | | | | | [facility] [address] | | | | | | [facility]TH [facility], | | | | | | [place] [address] | | | | | | [phone] | | | +--------+--------+ + + + [...] [place] | | | | | | [address] | | | | | | | | +--------+---------+ + + + documented as of this encounter Visit Diagnoses Not on filedocumented in this encounter"
--- OUTSIDE RECORDS SUMMARY | ~2019-02-27 | XMS | Encounter Summary ---
Demographics + + + | Address | [address] | | | [place] [address] | + + + | Home Phone [...] + | Aarti Hooks | ECON | [address] | | | | | [place] | | | | | [address] | | + + + + + Care Team Providers + +------+ + | Care Lift Manager Name | Role | Phone | + +------+ + | Raul Pate DO | PCP | | + +------+ + Encounter Details +--------+ + + + + | Date | Type | Department | Care Team | Description | +--------+ + + + + | 02/25/ | Hospital | [place] [facility] | Raul Pate | Acute pain of right | | 2019 | Encounter | [facility] XRAY [facility] | E, DO [address] | wrist | | | | [address] | [place], [place] | | | | | [place], [place] | [address] | | | | | [address] | [phone] | | | | | [phone] | | | +--------+ + + + [...] + + documented as of this encounter Medications at Time of Discharge + + + +---------+ + + | Medication | Sig | Dispensed | Refills | Start | End Date | | | | | | Date | | + + + +---------+ + + | atenolol | Take 1 tablet by | 90 | 3 | 01/05/20 | | | (TENORMIN) 50 mg | mouth Daily. | tablet | | 19 | | | tablet | | | | | | + + + +---------+ + + | diphenhydrAMINE | Take by mouth | | 0 | | | | HCl (ALLERGY MED PO) | Daily. | | | | | + + + +---------+ + + | finasteride | | | 0 | 01/31/20 | | | (PROSCAR) 5 mg | | | | 15 | | | tablet | | | | | | + + + +---------+ + + | gabapentin | Take 1 capsule by | 30 | 4 | 02/26/20 | | | (NEURONTIN) 100 mg | mouth At Bedtime. | capsule | | 19 | | | capsuleIndications: | | | | | | | Acute pain of right | | | | | | | wrist | | | | | | + + + +---------+ + + | Glucosamine 500 MG | Take by mouth | | 0 | | | | CAPS | Daily. | | | | | + + + +---------+ + + | meloxicam (MOBIC) | Take 1 tablet by | 30 | 3 | 10/15/19 | | | 15 mg tablet | mouth Daily as | tablet | | 19 | | | | needed for Pain. | | | | | + + + +---------+ + + | MULTIPLE | Take by mouth. | | 0 | | | | VITAMINS-MINERALS PO | | | | | | + + + +---------+ + + | pseudoePHEDrine | take 1 tablet by | 90 | 1 | 01/13/20 | | | (SUDOGEST) 30 mg | mouth every 6 hours | tablet | | 19 | | | tablet | if needed for | | | | | | | congestion | | | | | + + [...] [place] | | | | | | [address] | | | | | | | [...] + + documented in this encounter Results XR Wrist Right 3 + Vw [...] + | Acute pain of right wrist | + + documented in this encounter"
--- OUTSIDE RECORDS SUMMARY | ~2019-02-27 | XMS | Encounter Summary ---
Demographics + + + | Address | [address] | | | [place] [address] | + + + | Home Phone [...] + | Aarti Hooks | ECON | [address] | | | | | [place] | | | | | [address] | | + + + + + Care Team Providers + +------+ + | Care Chiropractic Physician Name | Role | Phone | + [...] | | | | [place], [place] | [address] | | | | | [address] | [phone] | | | | | [phone] | | | +--------+ + + + [...] [place] | | | | | | [address] | | | | | | | [...]
--- OUTSIDE RECORDS SUMMARY | ~2019-02-27 | XMS | Encounter Summary ---
Demographics + + + | Address | [address] | | | [place] [address] | + + + | Home Phone | | + + + | Preferred Language | Unknown | + + + | Marital Status | | + + + | Episcopalian Affiliation | 1077 | + + + [...] + | Aarti Hooks | ECON | [address] | | | | | [place] | | | | | [address] | | + + + + + Care Team Providers + +------+ + | Care Thermal Intelligence Analyst Name | Role | Phone | [...] | | | MEDICAL CL[facility] [address] | [place], [place] | | | | | [address] [place], | [address] | | | | | [place] [address] | [phone] | | | | | [phone] | | | +--------+--------+ + + + [...] [place] | | | | | | [address] | | | | | | | | +--------+---------+ + + + documented as of this encounter Visit Diagnoses Not on filedocumented in this encounter"
--- OUTSIDE RECORDS SUMMARY | ~2019-02-27 | XMS | Encounter Summary ---
Demographics + + + | Address | [address] | | | [place] [address] | + + + | Home Phone | | + + + | Preferred Language | Unknown | + + + | Marital Status | | + + + | Yazidi Affiliation | 1077 | + + + [...] + | Aarti Hooks | ECON | [address] | | | | | [place] | | | | | [address] | | + + + + + Care Team Providers + +------+ + | Care Workforce Development Program Director Name | Role | Phone | [...] Medication Refill | | 2017 | | [facility] | E, DO [address] | | | | | MEDICAL CLINIC [address] | [place], [place] | | | | | [address] [place], | [address] | | | | | [place] [address] | [phone] | | | | | [phone] | | | +--------+--------+ + + + [...] | | | | | [place], [place] | | | | | | [address] | | | | | | | | +--------+---------+ + + + documented as of this encounter Visit Diagnoses + + | Diagnosis | + + | Allergic rhinitis due to other allergic trigger, unspecified seasonality | + + documented in this encounter"
--- OUTSIDE RECORDS SUMMARY | ~2019-02-27 | XMS | Encounter Summary ---
Demographics + + + | Address | [address] | | | [place] [address] | + + + | Home Phone [...] + + | Author | [facility] | | | and [place] | + + + | Organization | [facility] | | | and [place] | + + + | Address | Unknown | + + + | Phone | Unavailable | + + + Support + + + + + | Name | Relationship | Address | Phone | + + + + + | Aarti Sheets | ECON | [address] | | | | | [place] | | | | | [address] | | + + + + + Care Team Providers + +------+ + | Care Value Engineer Name | Role | Phone | + +------+ + PCP | Unavailable | + +------+ + Encounter Details +--------+ + + + + | Date | Type | Department | Care Team | Description | +--------+ + + + + | 10/13/ | Hospital | [facility] | | | | 1995 - | Encounter | MED CTR GENERIC IP | | | | | | CONV DEPT [address] | | | | 08/15/ | | [place], | | | | 1995 | | [place] [address] | | | | | | [phone] | | | +--------+ + + + [...] | | | | | [place] | | | | | | [address] | | | | | | | | +--------+---------+ + + + documented as of this encounter Visit Diagnoses Not on filedocumented in this encounter"
--- OUTSIDE RECORDS SUMMARY | ~2019-02-27 | XMS | Encounter Summary ---
Demographics + + + | Address | [address] | | | [place] [address] | + + + | Home Phone | | + + + | Preferred Language | Unknown | + + + | Marital Status | | + + + | Gnosticist Affiliation | 1077 | + + + [...] + | Aarti Hooks | ECON | [address] | | | | | [place] | | | | | [address] | | + + + + + Care Team Providers + +------+ + | Care Oracle Brm Developer Name | Role | Phone | [...] | | | MEDICAL CLIN[facility] [address] | [place], [place] | | | | | [address] [place], | [address] | | | | | [place] [address] | [phone] | | | | | [phone] | | | +--------+--------+ + + + [...] [place] | | | | | | [address] | | | | | | | | +--------+---------+ + + + documented as of this encounter Visit Diagnoses Not on filedocumented in this encounter"
--- OUTSIDE RECORDS SUMMARY | ~2019-02-27 | XMS | Clinical Summary ---
Demographics + + + | Address | [address] | | | [place] [address] | + + + | Home Phone | | + + + | Preferred Language | Unknown | + + + | Marital Status | | + + + | Islam Affiliation | Unknown | + + + | Race | Unknown | + + + | Ethnic Group | Unknown | + + + Author + + + | Author | [facility] (Historical as of | | | 10-17-18) | + + + | Organization | [facility] (Historical as of | | | 10-17-18) | + + + | Address | Unknown | + + + | Phone | Unavailable | + + + Support + + +---------+ + | Name | Relationship | Address | Phone | + + +---------+ + | Aarti Kline | ECON | Unknown | | + + +---------+ + Care Team Providers + +------+ + | Care Developmental Psychologist Name | Role | Phone | + +------+ + | Adrián Pate DO | PP | | + +------+ + Allergies + + + + + + | Active Allergy | Reactions | Severity | Noted | Comments | | | | | Date | | + + + + + + | Codeine | Nausea Only | Low | 05/30/20 | | | | | | 18 | | + + + + + + | Penicillins | Hives | High | 07/30/20 | | | | | | 18 | | + + + + + + Current Medications + + +-------+---------+------+------+-------+ | Prescription | Sig. | Disp. | Refills | Star | End | Statu | | | | | | t | Date | s | | | | | | Date | | | + + +-------+---------+------+------+-------+ | atenolol | Take 50 mg by mouth | | | | | Activ | | (TENORMIN) 50 MG | daily. | | | | | e | | tablet | | | | | | | + + +-------+---------+------+------+-------+ | finasteride | Take 5 mg by mouth | | | | | Activ | | (PROSCAR) 5 MG | daily. | | | | | e | | tablet | | | | | | | + + +-------+---------+------+------+-------+ | tamsulosin | Take 0.4 mg by mouth | | | | | Activ | | (FLOMAX) 0.4 MG | After dinner. | | | | | e | | capsule | | | | | | | + + +-------+---------+------+------+-------+ Active Problems + + + | Problem | Noted Date | + + + | Cardiac arrest (HCC) | 07/30/2017 | + + + | Encounter for annual health examination | 07/30/2017 | + + + | ICD (implantable cardioverter-defibrillator) in place | 08/01/2016 | + + + | Hx of drug abuse | 02/21/2015 | + + + | H/O cardiac arrest | 12/17/2012 | + + + | Presence of single chamber automatic cardioverter/defibrillator | 12/17/2012 | | (AICD) | | + + + + + | Overview: Overview: SJM single chamber initial implant 1998. | | Now on 3rd device (2007).[facility] [id number] Mame Aranda | | 01/23/2015Last Assessment & Plan: Device at [facility]. Gen change | | scheduled for 01/[address] Askew. Full PARQ held. | |Device at [facility]. Gen change scheduled for 01/[address] Askew. Full PARQ held. | + + Resolved Problems + + + + | Problem | Noted | Resolved | | | Date | Date | + + + + | Long Q-T syndrome | 01/07/20 | | | | 15 | 9 | + + + + + -+ | Overview: Overview: Genetic testing negative.Last Assessment | | & Plan: No recurrent events on atenolol. Continue atenolol. | | Recommended family screening with EKGs. | |Last Assessment & Plan: | |No recurrent events on atenolol. Continue atenolol. Recommended family screening with EKGs. | + -+ Social History + +-------+ +--------+------+ | Tobacco Use | Types | Packs/Day | Years | Date | | | | | Used | | + +-------+ +--------+------+ | Former Smoker | | | | | + +-------+ +--------+------+ + +---+---+---+ | Smokeless Tobacco: | | | | | Never Used | | | | + +---+---+---+ + + +---------+ + | Alcohol Use | Drinks/We | oz/Week | Comments | | | ek | | | + + +---------+ + | No | | | | + + +---------+ + + + + | Sex Assigned at | Date Recorded | | | | + + + | Not on file | | + + + Last Filed Vital Signs + + + + | Vital Sign | Reading | Time Taken | + + + + | Blood Pressure | 112/62 | 09/02/2018 11:47 AM PDT | + + + + | Pulse | 56 | 09/02/2018 11:47 AM PDT | + + + + | Temperature | - | - | + + + + | Respiratory Rate | - | - | + + + + | Oxygen Saturation | 97% | 09/02/2018 11:47 AM PDT | + + + + | Inhaled Oxygen | - | - | | Concentration | | | + + + + | Weight | 97.5 kg (215 lb) | 09/02/2018 11:47 AM PDT | + + + + | Height | 172.7 cm (5' 8") | 09/02/2018 11:47 AM PDT | + + + + | Body Mass Index | 32.69 | 09/02/2018 11:47 AM PDT | + + + + Plan of Treatment +--------+---------+ + + + | Date | Type | Specialty | Care Team | Description | +--------+---------+ + + + | 09/21/ | Office | | Toni Durand, | | | 2020 | Visit | | MD Jesus Chin | | | | | | Dr Richards, | | | | | | [place] [address] | | | | | | [phone] | | | | | | | | +--------+---------+ + + + + + + + + | Health Maintenance | Due Date | Last Done | Comments | + + + + + | Vaccine: | | | | | Dtap/Tdap/Td (1 - | 0 | | | | Tdap) | | | | + + + + + | Colon Cancer | | | | | Screening | 1 | | | | (Colonoscopy) | | | | + + + + + | Vaccine: Zoster (1 | | | | | of 2) | 1 | | | + + + + + | Vaccine: Influenza | | | | | (#1) | 9 | | | + + + + + Results Not on filefrom Last 3 Months Insurance + +--------+ +------+-------+---------+ | Payer | Benefi | Subscriber | Type | Phone | Address | | | t Plan | ID | | | | | | / | | | | | | | Group | | | | | + +--------+ +------+-------+---------+ | [facility] | PROVID | [id number] | PPO | | | | PLAN | ENCE | | | | | | | HEALTH | | | | | | | PLAN | | | | | + +--------+ +------+-------+---------+ + +--------+ +--------+ + + | Guarantor Name | Accoun | Relation to | Date | Phone | Billing Address | | | t Type | Patient | of | | | | | | | | | | + +--------+ +--------+ + + | ADIS KLINE O | Person | Self [birth year] | Work: | [address] | | | al/Lee | | 1960 | [phone] [place] | | | marcus | | | [phone] Home: | [address] | | | | | | | | | | | | | [phone] | | | | | | [phone] | | + +--------+ +--------+ + +
--- OUTSIDE RECORDS SUMMARY | ~2019-02-27 | XMS | Encounter Summary ---
Demographics + + + | Address | [address] | | | [place] [address] | + + + | Home Phone | | + + + | Preferred Language | Unknown | + + + | Marital Status | | + + + | Catholic Affiliation | 1077 | + + [...] + | Aarti Sheets | ECON | [address] | | | | | [place] | | | | | [address] | | + + + + + Care Team Providers + +------+ + | Care Java Developer Architect Name | Role | Phone | + +------+ + PCP | Unavailable | + +------+ + Encounter Details +--------+ + + + + | Date | Type | Department | Care Team | Description | +--------+ + + + + | 04/07/ | Hospital | [facility] | Oneal Cuenca MD | | | 1998 - | Encounter | MED CTR GENERIC IP | [address] | | | | | CONV DEPT [address] | [place], [place] | | | 04/10/ | | [place], | [address] | | | 1998 | | [place] [address] | | | | | | [phone] | | | +--------+ + + + [...] [place] | | | | | | [address] | | | | | | | | +--------+---------+ + + + documented as of this encounter Visit Diagnoses Not on filedocumented in this encounter"
--- OUTSIDE RECORDS SUMMARY | ~2019-02-27 | XMS | Encounter Summary ---
Demographics + + + | Address | [address] | | | [place] [address] | + + + | Home Phone [...] + | Aarti Hooks | ECON | [address] | | | | | [place] | | | | | [address] | | + + + + + Care Team Providers + +------+ + | Care Joiner Helper Name | Role | Phone | [...] | | [address] [place], | [address] | | | | | [place] [address] | [phone] | | | | | [phone] | | | +--------+ + + + [...] [place] | | | | | | [address] | | | | | | | [...]
--- OUTSIDE RECORDS SUMMARY | ~2019-02-27 | XMS | Encounter Summary ---
Demographics + + + | Address | [address] | | | [place] [address] | + + + | Home Phone | | + + + | Preferred Language | Unknown | + + + | Marital Status | | + + + | Sabianism Affiliation | 1077 | + + + | Race | Unknown | + + + | Ethnic Group | Unknown | + + + Author + + + | Author | [facility] | | | and [place] | + + + | Organization | [facility] | | | and [place] | + + + | Address | Unknown | + + + | Phone | Unavailable | + + + Support + + + + + | Name | Relationship | Address | Phone | + + + + + | Aarti Hooks | ECON | [address] | | | | | [place] | | | | | [address] | | + + + + + Care Team Providers + +------+ + | Care Fishing Captain Name | Role | Phone | + [...] | 2017 | | [facility] | [facility] | | | | | MEDICAL CLIN[facility] [address] | | | | | | [address] [facility], | | | | | | [place] [address] | | | | | | [phone] | | | +--------+--------+ + + + [...] [place] | | | | | | [address] | | | | | | | | +--------+---------+ + + + documented as of this encounter Visit Diagnoses Not on filedocumented in this encounter"
--- OUTSIDE RECORDS SUMMARY | ~2019-02-27 | XMS | Clinical Summary ---
Demographics + + + | Address | [address] | | | [place] [address] | + + + | Home Phone | | + + + | Preferred Language | Unknown | + + + | Marital Status | | + + + | Mandaeism Affiliation | 1077 | + + + [...] + | Aarti Hooks | ECON | [address] | | | | | [place] | | | | | [address] | | + + + + + Care Team Providers + +------+ + | Care Aromatherapist Name | Role | Phone | + [...] | | 2019 | | | CC MULTIMEDIA DEVELOPER | Pre-fill | +--------+ + + + [...] | + + + + | INFLUENZA, [id number], | 02/17/2009 | | | LIVE ATTENUATED [...] | | | | | [place] | | | | | | [address] | | | | | | | [...] Pate DO : 1960MRN: | | | [id number] Primary cardiology provider: Toni [place] Primary | | | electrophysiology provider: None Device federal agent: [employer] | | | Device type: Single chamber [...] | | Gio DO Herlinda : 1960MRN: [id number] Primary cardiology provider: Toni | | [facility] Primary electrophysiology provider: Polly Device federal agent: [employer] | | type: Single chamber (Ventricular)Battery Longevity: [...] +--------+ +---------+--------+ | PACIFICSOURCE | PACIFI | [id number] | | [phone] | | PPO | | | CSOURC | | 019-Pr | 2 | | | | | E | | esent | | | | | | FIRST | | | | | | | | CHOICE | | | | | | + +--------+ +--------+ +---------+--------+ | [employer]IFICSOURCE | PACIFI | [id number] | | [phone] | | Indemn | | | CSOURC [...] Person | Self | [birth year] | | [address] | | | al/Lee | | 1961 | [phone] | [place] | | | [place] | | | 5 (Home) | [address] | | | | | | [phone] | | | | | | | 9 (Work) | | + +--------+ +--------+ + + | Adis Hooks Phillip | Person | Self | [birth year] | | [address] | | | al/Fam | | 1961 | [phone] | [place], [place] | | | [place] | | | 5 (Home) | [address] | | | | | | [phone] | | | | | | | 9 (Work) | | + +--------+ +--------+ + + | Adis Hooks Otis | Person | Self | [birth year] | | [address] | | | al/Fam | | 1961 | [phone] | [place], [place] | | | [place] | | | 5 (Home) | [address] | | | | | | [phone] | | | | | | | 9 (Work) | | + +--------+ +--------+ + + Advance Directives + + + + + | Type | Date Recorded | Patient | Explanation | | | | X Ray Developer | | + + + + + | Power of | | | | | Vice President Of Customer Service | | | | + + + + + | Advance | 02/25/2019 | | | | Directive | 1:22 PM | | | + + + + +
--- OUTSIDE RECORDS SUMMARY | ~2019-02-27 | XMS | Encounter Summary ---
Demographics + + + | Address | [address] | | | [place] [address] | + + + | Home Phone | | + + + | Preferred Language | Unknown | + + + | Marital Status | | + + + | Jewish Affiliation | 1077 | + + + [...] + | Aarti Hooks | ECON | [address] | | | | | [place] | | | | | [address] | | + + + + + Care Team Providers + +------+ + | Care Feature Writer Name | Role | Phone | + [...] left | | 2019 | Visit | [facility] | E, DO [address] | lower limb (Primary | | | | MEDICAL CLINIC [address] | [place], [place] | Dx); Rash | | | | [address] [place], | [address] | | | | | [place] [address] | [phone] | | | | | [phone] | | | +--------+---------+ + + + [...] mood and affect. Entered by Charlie John [facility], acting as scribe for Adrián Pate D.O. [...] [place] | | | | | | [address] | | | | | | | | +--------+---------+ + + + documented as of this encounter Visit Diagnoses + + | Diagnosis | + + | Cellulitis of left lower limb - Primary | + + | Rash Rash and other nonspecific skin eruption | + + documented in this encounter
--- OUTSIDE RECORDS SUMMARY | ~2019-02-27 | XMS | Encounter Summary ---
Demographics + + + | Address | [address] | | | [place] [address] | + + + | Home Phone | | + + + | Preferred Language | Unknown | + + + | Marital Status | | + + + | Gnosticist Affiliation | 1077 | + + + | Race | Unknown | + + + | Ethnic Group | Unknown | + + + Author + + + | Author | [facility] | | | and [place] | + + + | Organization | [facility] | | | and [place] | + + + | Address | Unknown | + + + | Phone | Unavailable | + + + Support + + + + + | Name | Relationship | Address | Phone | + + + + + | Aarti Hooks | ECON | [address] | | | | | [place] | | | | | [address] | | + + + + + Care Team Providers + +------+ + | Care Dev Technical Mgr Name | Role | Phone | + [...] Medication Refill | | 2017 | | [facility] | E, DO [address] | | | | | MEDICAL CLINIC [address] | [place], [place] | | | | | [address] [place], | [address] | | | | | [place] [address] | [phone] | | | | | [phone] | | | +--------+--------+ + + + [...] [place] | | | | | | [address] | | | | | | | | +--------+---------+ + + + documented as of this encounter Visit Diagnoses Not on filedocumented in this encounter"
--- OUTSIDE RECORDS SUMMARY | ~2019-02-27 | XMS | Encounter Summary ---
Demographics + + + | Address | [address] | | | [place] [address] | + + + | Home Phone [...] + | Aarti Hooks | ECON | [address] | | | | | [place] | | | | | [address] | | + + + + + Care Team Providers + +------+ + | Care Aoc Director Combat Plans Officer Name | Role | Phone | [...] | | | MEDICAL CLINIC [address] | [place], [place] | | | | | [address] [place], | [address] | | | | | [place] [address] | [phone] | | | | | [phone] | | | +--------+--------+ + + + [...] | | | | | [place], [place] | | | | | | [address] | | | | | | | | +--------+---------+ + + + documented as of this encounter Visit Diagnoses + + | Diagnosis | + + | Allergic rhinitis due to other allergic trigger, unspecified seasonality | + + documented in this encounter"
--- OUTSIDE RECORDS SUMMARY | ~2019-02-27 | XMS | Encounter Summary ---
Demographics + + + | Address | [address] | | | [place] [address] | + + + | Home Phone | | + + + | Preferred Language | Unknown | + + + | Marital Status | | + + + | Mormon Affiliation | 1077 | + + + | Race | Unknown | + + + | Ethnic Group | Unknown | + + + Author + + + | Author | [facility] | | | and [place] | + + + | Organization | [facility] | | | and [place] | + + + | Address | Unknown | + + + | Phone | Unavailable | + + + Support + + + + + | Name | Relationship | Address | Phone | + + + + + | Aarti Hooks | ECON | [address] | | | | | [place] | | | | | [address] | | + + + + + Care Team Providers + +------+ + | Care Collaborative Physician Name | Role | Phone | [...] Medication Refill | | 2018 | | [facility] | E, DO [address] | | | | | MEDICAL CLINIC [address] | [place], [place] | | | | | [address] [place], | [address] | | | | | [place] [address] | [phone] | | | | | [phone] | | | +--------+--------+ + + + [...] [place] | | | | | | [address] | | | | | | | | +--------+---------+ + + + documented as of this encounter Visit Diagnoses Not on filedocumented in this encounter"
--- OUTSIDE RECORDS SUMMARY | ~2019-02-27 | XMS | Encounter Summary ---
Demographics + + + | Address | [address] | | | [place] [address] | + + + | Home Phone | | + + + | Preferred Language | Unknown | + + + | Marital Status | | + + + | Quaker Affiliation | 1077 | + + + | Race | Unknown | + + + | Ethnic Group | Unknown | + + + Author + + + | Author | [facility] | | | and [place] | + + + | Organization | [facility] | | | and [place] | + + + | Address | Unknown | + + + | Phone | Unavailable | + + + Support + + + + + | Name | Relationship | Address | Phone | + + + + + | Aarti Hooks | ECON | [address] | | | | | [place] | | | | | [address] | | + + + + + Care Team Providers + +------+ + | Care Open Hearth Laborer Name | Role | Phone | [...] Medication Refill | | 2018 | | [facility] | E, DO [address] | | | | | MEDICAL CLIN[address] | [place], [place] | | | | | [address] [place], | [address] | | | | | [place] [address] | [phone] | | | | | [phone] | | | +--------+--------+ + + + [...] [place] | | | | | | [address] | | | | | | | | +--------+---------+ + + + documented as of this encounter Visit Diagnoses Not on filedocumented in this encounter"
--- OUTSIDE RECORDS SUMMARY | ~2019-02-27 | XMS | Encounter Summary ---
Demographics + + + | Address | [address] | | | [place] [address] | + + + | Home Phone | | + + + | Preferred Language | Unknown | + + + | Marital Status | | + + + | Yarsani Affiliation | 1077 | + + + | Race | Unknown | + + + | Ethnic Group | Unknown | + + + Author + + + | Author | [facility] | | | and [place] | + + + | Organization | [facility] | | | and [place] | + + + | Address | Unknown | + + + | Phone | Unavailable | + + + Support + + + + + | Name | Relationship | Address | Phone | + + + + + | Aarti Hooks | ECON | [address] | | | | | [place] | | | | | [address] | | + + + + + Care Team Providers + +------+ + | Care Talent Acquisition Assistant Name | Role | Phone | [...] | 2018 | | [facility] | [facility] [address] | | | | | MEDICAL CLINIC [address] | [facility] [place] [address] | | | | | [address] [place], | [phone] | | | | | [place] [address] | | | | | | [phone] | | | +--------+--------+ + + + [...] | | | | [place], [place] | | | | | | [address] | | | | | | | | +--------+---------+ + + + documented as of this encounter Visit Diagnoses + + | Diagnosis | + + | Allergic rhinitis due to other allergic trigger, unspecified seasonality | + + documented in this encounter"
--- OUTSIDE RECORDS SUMMARY | ~2019-02-27 | XMS | Clinical Summary ---
Demographics + + + | Address | [address] | | | [place] [address] | + + + | Home Phone [...] + | Aarti Hooks | ECON | [address] | | | | | [place] | | | | | [address] | | + + + + + Care Team Providers + +------+ + | Care Equipment Operator/Laborer Name | Role | Phone | + [...] | | 2019 | | | CC SANITATION INSPECTOR | Pre-fill | +--------+ + + + [...] | + + + + | INFLUENZA, [id number], | 02/17/2009 | | | LIVE ATTENUATED [...] | | | | | [place] | | | | | | [address] | | | | | | | [...] Pate DO : 1960MRN: | | | [id number] Primary cardiology provider: Toni Retanaandover Primary | | | electrophysiology provider: None Device marketing information analyst: [employer] | | | Device type: Single chamber [...] | | Gio DO Herlinda : 1960MRN: [id number] Primary cardiology provider: Toni | | [facility] Primary electrophysiology provider: Polly Device marketing information analyst: Reissued | | type: Single chamber (Ventricular)Battery Longevity: [...] +--------+ +---------+--------+ | PACIFICSOURCE | PACIFI | [id number] | | [phone] | | PPO | | | CSOURC | | 019-Pr | 2 | | | | | E | | esent | | | | | | FIRST | | | | | | | | CHOICE | | | | | | + +--------+ +--------+ +---------+--------+ | PACIFICSOURCE | PACIFI | [id number] | | [phone] | | Indemn | | | CSOURC [...] Person | Self | [birth year] | | [address] | | | al/Lee | | 1961 | [phone] | [place] | | | [place] | | | 5 (Home) | [address] | | | | | | [phone] | | | | | | | 9 (Work) | | + +--------+ +--------+ + + | Adis Hooks Phillip | Person | Self | [birth year] | | [address] | | | al/Fam | | 1961 | [phone] | [place], [place] | | | [place]cus | | | 5 (Home) | [address] | | | | | | [phone] | | | | | | | 9 (Work) | | + +--------+ +--------+ + + | Adis Hooks Otis | Person | Self | [birth year] | | [address] | | | al/Fam | | 1961 | [phone] | [place], [place] | | | marcus | | | 5 (Home) | [address] | | | | | | [phone] | | | | | | | 9 (Work) | | + +--------+ +--------+ + + Advance Directives + + + + + | Type | Date Recorded | Patient | Explanation | | | | Granite Polisher Machine | | + + + + + | Power of | | | | | Telehealth Case Manager | | | | + + + + + | Advance | 02/25/2019 | | | | Directive | 1:22 PM | | | + + + + +
--- OUTSIDE RECORDS SUMMARY | ~2019-02-27 | XMS | Encounter Summary ---
Demographics + + + | Address | [address] | | | [place] [address] | + + + | Home Phone [...] + | Aarti Hooks | ECON | [address] | | | | | [place] | | | | | [address] | | + + + + + Care Team Providers + +------+ + | Care Senior Clinical Project Manager Name | Role | Phone | [...] Insulin Syringe | | 2018 | | [facility] | CC PLASMA CUTTING MACHINE OPERATOR | Pre-fill | | | | MEDICAL CLINIC [address] | | | | | | 4TH [facility], | | | | | | [place] [address] | | | | | | [phone] | | | +--------+--------+ + + + [...] [place] | | | | | | [address] | | | | | | | | +--------+---------+ + + + documented as of this encounter Visit Diagnoses Not on filedocumented in this encounter"
--- OUTSIDE RECORDS SUMMARY | ~2019-02-27 | XMS | Encounter Summary ---
Demographics + + + | Address | [address] | | | [place] [address] | + + + | Home Phone | | + + + | Preferred Language | Unknown | + + + | Marital Status | | + + + | Episcopal Affiliation | 1077 | + + + | Race | Unknown | + + + | Ethnic Group | Unknown | + + + Author + + + | Author | [facility] | | | and [place] | + [...] + | Aarti Sheets | ECON | [address] | | | | | [place] | | | | | [address] | | + + + + + Care Team Providers + +------+ + | Care Video Game Tester Name | Role | Phone | + +------+ + PCP | Unavailable | + +------+ + Encounter Details +--------+ + + + + | Date | Type | Department | Care Team | Description | +--------+ + + + + | 10/05/ | Hospital | [facility] | | | | 1994 | Encounter | MED CTR EMERGENCY | | | | | | GIGI Chacko | | | | | | [place] | | | | | | [address] | | | | | | [phone] | | | +--------+ + + + [...] | | | | | [place], [place] | | | | | | [address] | | | | | | | | +--------+---------+ + + + documented as of this encounter Visit Diagnoses Not on filedocumented in this encounter"
--- OUTSIDE RECORDS SUMMARY | ~2019-02-27 | XMS | Encounter Summary ---
Demographics + + + | Address | [address] | | | [place] [address] | + + + | Home Phone | | + + + | Preferred Language | Unknown | + + + | Marital Status | | + + + | Jewish Affiliation | 1077 | + + + | Race | Unknown | + + + | Ethnic Group | Unknown | + + + Author + + + | Author | [facility] | | | and [place] | + + + | Organization | [facility] | | | and [place] | + + + | Address | Unknown | + + + | Phone | Unavailable | + + + Support + + + + + | Name | Relationship | Address | Phone | + + + + + | Aarti Hooks | ECON | [address] | | | | | [place] | | | | | [address] | | + + + + + Care Team Providers + +------+ + | Care Senior Reservoir Engineer Name | Role | Phone | [...] | | | MEDICAL CLINIC [address] | [place], [place] | | | | | [address] [place], | [address] | | | | | [place] [address] | [phone] | | | | | [phone] | | | +--------+--------+ + + + [...] | | | | | [place], [place] | | | | | | [address] | | | | | | | | +--------+---------+ + + + documented as of this encounter Visit Diagnoses + + | Diagnosis | + + | Allergic rhinitis due to other allergic trigger, unspecified seasonality | + + documented in this encounter"
--- OUTSIDE RECORDS SUMMARY | ~2019-02-27 | XMS | Encounter Summary ---
Demographics + + + | Address | [address] | | | [place] [address] | + + + | Home Phone [...] + | Aarti Hooks | ECON | [address] | | | | | [place] | | | | | [address] | | + + + + + Care Team Providers + +------+ + | Care Hat Band Attacher Name | Role | Phone | + [...] (implantable | | 2018 | Visit | [facility] | E, DO [address] | cardioverter-defibri | | | | MEDICAL CLINIC [address] | [place], [place] | llator) in place | | | | [address] [place], | [address] | (Primary Dx); | | | | [place] [address] | [phone] | Allergic rhinitis | | | | [phone] | | due to other | | [...] - PACEMAKER; Surgeon: Gabe Lawton MD; Location: [facility] Social History Social History [...] | | | | | [place] | | | | | | [address] | | | | | | | | +--------+---------+ + + + documented as of this encounter Visit Diagnoses + + | Diagnosis | + + | ICD (implantable cardioverter-defibrillator) in place - Primary | + + | Allergic rhinitis due to other allergic trigger, unspecified seasonality | + + documented in this encounter
--- OUTSIDE RECORDS SUMMARY | ~2019-02-27 | XMS | Encounter Summary ---
Demographics + + + | Address | [address] | | | [place] [address] | + + + | Home Phone | | + + + | Preferred Language | Unknown | + + + | Marital Status | | + + + | Adventism Affiliation | 1077 | + + + | Race | Unknown | + + + | Ethnic Group | Unknown | + + + Author + + + | Author | [facility] | | | and [place] | + + + | Organization | [facility] | | | and [place] | + + + | Address | Unknown | + + + | Phone | Unavailable | + + + Support + + + + + | Name | Relationship | Address | Phone | + + + + + | Aarti Hooks | ECON | [address] | | | | | [place] | | | | | [address] | | + + + + + Care Team Providers + +------+ + | Care Clothing Cutter Name | Role | Phone | + [...] | [facility] | [facility] | | | | | MEDICAL CLINIC [address] | | | | | | 4TH [facility], | | | | | | [place] [address] | | | | | | [phone] | | | +--------+--------+ + + + [...] [place] | | | | | | [address] | | | | | | | | +--------+---------+ + + + documented as of this encounter Visit Diagnoses Not on filedocumented in this encounter"
--- OUTSIDE RECORDS SUMMARY | ~2019-02-27 | XMS | Encounter Summary ---
Demographics + + + | Address | [address] | | | [place] [address] | + + + | Home Phone | | + + + | Preferred Language | Unknown | + + + | Marital Status | | + + + | Taoist Affiliation | 1077 | + + + [...] + | Aarti Hooks | ECON | [address] | | | | | [place] | | | | | [address] | | + + + + + Care Team Providers + +------+ + | Care Human Resources Administrator Name | Role | Phone | + [...] 2014 | | GASTROENTEROLOGY | [address], [place] | | | | | [address] [place] | [address] [place], [place] | | | | | [address] [place], [place] | [address] | | | | | [address] | | | | | | [phone] | | | +--------+ + + + [...] [place] | | | | | | [address] | | | | | | | | +--------+---------+ + + + documented as of this encounter Visit Diagnoses Not on filedocumented in this encounter
--- OUTSIDE RECORDS SUMMARY | ~2019-02-27 | XMS | Encounter Summary ---
Demographics + + + | Address | [address] | | | [place] [address] | + + + | Home Phone [...] + | Aarti Hooks | ECON | [address] | | | | | [place] | | | | | [address] | | + + + + + Care Team Providers + +------+ + | Care Sheet Cutter Name | Role | Phone | [...] + + | 02/28/ | Telephone | [facility] | Gabe Lawton MD | Results, Pathology | | 2014 | | GASTROENTEROLOGY | [address], [place] | | | | | [address] [place] | [address] [place], [place] | | | | | [address] [place], [place] | [address] | | | | | [address] | | | | | | [phone] | | | +--------+ + + + [...] [place] | | | | | | [address] | | | | | | | | +--------+---------+ + + + documented as of this encounter Visit Diagnoses Not on filedocumented in this encounter"
--- OUTSIDE RECORDS SUMMARY | ~2019-02-27 | XMS | Encounter Summary ---
Demographics + + + | Address | [address] | | | [place] [address] | + + + | Home Phone [...] + | Aarti Hooks | ECON | [address] | | | | | [place] | | | | | [address] | | + + + + + Care Team Providers + +------+ + | Care Touch Up Painter Name | Role | Phone | + [...] 10/15/ | Refill | [facility] | Rual Pate | Medication Refill | | 2018 | | [facility] | E, DO [address] | | | | | MEDICAL CLIN[facility] [address] | [place], [place] | | | | | [address] [place], | [address] | | | | | [place] [address] | [phone] | | | | | [phone] | | | +--------+--------+ + + + [...] | 2019 | Visit | | MD Jessu RUGGIERO | | | | | | [place] | | | | | | [address] | | | | | | | | +--------+---------+ + + + documented as of this encounter Visit Diagnoses Not on filedocumented in this encounter"
--- OUTSIDE RECORDS SUMMARY | ~2019-02-27 | XMS | Encounter Summary ---
Demographics + + + | Address | [address] | | | [place] [address] | + + + | Home Phone [...] + | Aarti Hooks | ECON | [address] | | | | | [place] | | | | | [address] | | + + + + + Care Team Providers + +------+ + | Care Personnel Security Assistant Name | Role | Phone | [...] + + | 02/10/ | Procedure | [facility] | | Presence of single | | 2019 | visit | [facility] [place] | | chamber automatic | | | | [address] | | cardioverter/defibri | | | | [address] | | llator (AICD) | | | | [place], [place] | | | | | | [address] | | | | | | [phone] | | | +--------+ + + + [...] | | | | | | [place] | | | | | | [address] | | | | | | | [...] documented in this encounter Results Device Interrogation (02/18/2019 12:00 AM PST) + + + | Narrative | Performed At | + + + | [facility] | [facility] | | NIKITA Salinas 02/18/2019 9:30 [facility] INTERROGATION REPORT Name: | | | Adis Hooks PCP: Raul Pate DO : 1960MRN: | | | [id number] Primary cardiology provider: Toni Retanamonticello Primary | | | electrophysiology provider: None Device stroke coordinator: [employer] | | | Device type: Single chamber [...] from the original.ICD INTERROGATION REPORT Name: Adis Hooks PCP: Raul | | Gio Pate DO : 1960MRN: [id number] Primary cardiology provider: Toni | | [facility] Primary electrophysiology provider: Polly Device stroke coordinator: [employer] | | type: Single chamber (Ventricular)Battery Longevity: [...] Presence of single chamber automatic cardioverter/defibrillator (AICD) Automatic | | implantable cardiac defibrillator in situ | + + documented in this encounter"
--- OUTSIDE RECORDS SUMMARY | ~2019-02-27 | XMS | Clinical Summary ---
Demographics + + + | Address | [address] | | | [place] [address] | + + + | Home Phone | | + + + | Preferred Language | Unknown | + + + | Marital Status | | + + + | Moravian Affiliation | Unknown | + + + | Race | Unknown | + + + | Ethnic Group | Unknown | + + + Author + + + | Author | [employer] [facility] (Historical as of | | | 10-17-18) | + + + | Organization | [facility] (Historical as of | | | 10-17-18) [...] Providers + +------+ + | Care Press Reader Name | Role | Phone | + [...] | 01/23/2015Last Assessment & Plan: Device at [facility]. Gen change | | scheduled for [...] | | | | | | [place] [address] | | | | | | [phone] | | | | | | | [...] | | | + +--------+ +------+-------+---------+ | [facility] | PROVID | [id number] | PPO | | | | PLAN [...] | Self | [birth year] | Work: | [address] | | | al/Lee | | 1960 | [phone] [place] | | | marcus | | | [address] Home: | [address] | | | | | | | | | | | | | [phone] | | | | | | [phone] | | + +--------+ +--------+ + +
--- OUTSIDE RECORDS SUMMARY | ~2019-02-27 | XMS | Encounter Summary ---
Demographics + + + | Address | [address] | | | [place] [address] | + + + | Home Phone [...] + | Aarti Hooks | ECON | [address] | | | | | [place] | | | | | [address] | | + + + + + Care Team Providers + +------+ + | Care Coin Wrapping Machine Operator Name | Role | Phone [...] | Blood in | | [address], | | | | | stool Colon | | [address] | | | | | cancer | | [place], | | | | | screening | | [place] [address] | | | | | Pacemaker | | Phone: | | | | | [Z95.0]Blood | | [phone] | | | | | in stool | | Fax: | | | | | [K92.1]Colon | | [phone] | | | | | cancer | | | | | | | screening | | | | | | | [Z12.11] | | | +--------+--------+ + + + + Encounter Details +--------+ + + + + | Date | Type | Department | Care Team | Description | +--------+ + + + + | 02/22/ | [facility]est[facility] | [facility] | Renard Chow MD | | | 2014 | Event | MED CTR MP INTRA OP | [address] | | | | | [address] | [place] | | | | | [place] | [address] | | | | | [address] | [phone] | | | | | [phone] | | | +--------+ + + + [...] + + | Periph | 02/22/15; 08; [id number] | 02/22/15824 by | 02/22/15 1038 by [...] 1643 (Removed/Completed by | | | | [facility] | [place]) | | | | eral | | [...] | | | | | [place], [place] | | | | | | [address] | | | | | | | [...]
--- OUTSIDE RECORDS SUMMARY | ~2019-02-27 | XMS | Encounter Summary ---
Demographics + + + | Address | [address] | | | [place] [address] | + + + | Home Phone | | + + + | Preferred Language | Unknown | + + + | Marital Status | | + + + | Amish Affiliation | 1077 | + + + | Race | Unknown | + + + | Ethnic Group | Unknown | + + + Author + + + | Author | [facility] | | | and [place] | + + + | Organization | [facility] | | | and [place] | + + + | Address | Unknown | + + + | Phone | Unavailable | + + + Support + + + + + | Name | Relationship | Address | Phone | + + + + + | Aarti Hooks | ECON | [address] | | | | | [place] | | | | | [address] | | + + + + + Care Team Providers + +------+ + | Care Outdoor Studies Professor Name | Role | Phone | [...] in | [address], | | | | | stool | [place], [place] | [address] | | | | | Special | [address] [place] | [place], | | | | | screening | [place], [place] | [place] [address] | | | | | for | [address] | Phone: | | | | | malignant | Phone: | [phone] | | | | | neoplasms, | [phone] | Fax: | | | | | colon | Fax: | [phone] | | | | | Procedures | [phone] | | | | | | NC | | | | | | | COLONOSCOPY | | | | | | | FLX DX | | | | | | | W/COLLJ SPEC | | | | | | | WHEN PFRMD | | | | | | | NC | | | | | | | COLONOSCOPY | | | | | | | W/BIOPSY | | | | | | | SINGLE/MULTI | | | | | | | PLE NC | | | | | | | COLSC FLX | | | | | | | W/RMVL OF | | | | | | | TUMOR POLYP | | | | | | | LESION SNARE | | | | | | | TQ NC | | | | | | | ESOPHAGOGAST | | | | | | | RODUODENOSCO | | | | | | | PY TRANSORAL | | | | | | | DIAGNOSTIC | | | | | | | NC EDG | | | | | | | TRANSORAL | | | | | | | BIOPSY | | | | | | | SINGLE/MULTI | | | | | | | PLE NC | | | | | | | ANESTH,INTES | | | | | | | [place],SCOPE,L | | | | | | | OW NC | | | | | | | [...] + + | 02/07/ | Telephone | [facility] | Gabe Lawton MD | Appointment | | 2014 | | GASTROENTEROLOGY | [address], [place] | (procedure ) | | | | [address] [place] | [address] [place] | | | | | [address] [place], [place] | [address] | | | | | [address] | | | | | | [phone] | | | +--------+ + + + [...] [place] | | | | | | [address] | | | | | | | [...]
--- OUTSIDE RECORDS SUMMARY | ~2019-02-27 | XMS | Encounter Summary ---
Demographics + + + | Address | [address] | | | [place] [address] | + + + | Home Phone [...] + | Aarti Hooks | ECON | [address] | | | | | [place] | | | | | [address] | | + + + + + Care Team Providers + +------+ + | Care Supervisor Agricultural Education Name | Role | Phone | + [...] | | | MEDICAL CL[facility] [address] | [place], [place] | | | | | [address] [facility], | [address] | | | | | [place] [address] | [phone] | | | | | [phone] | | | +--------+--------+ + + + [...] [place] | | | | | | [address] | | | | | | | | +--------+---------+ + + + documented as of this encounter Visit Diagnoses Not on filedocumented in this encounter"
--- OUTSIDE RECORDS SUMMARY | ~2019-02-27 | XMS | Encounter Summary ---
Demographics + + + | Address | [address] | | | [place] [address] | + + + | Home Phone [...] + | Aarti Hooks | ECON | [address] | | | | | [place] | | | | | [address] | | + + + + + Care Team Providers + +------+ + | Care Solar Sales Specialist Name | Role | Phone | [...] 2018 | | [facility] | E, DO [address] | | | | | MEDICAL CLINIC [address] | [place], [place] | | | | | [address] [place], | [address] | | | | | [place] [address] | [phone] | | | | | [phone] | | | +--------+--------+ + + + [...] | | | | | [place], [place] | | | | | | [address] | | | | | | | | +--------+---------+ + + + documented as of this encounter Visit Diagnoses Not on filedocumented in this encounter"
--- OUTSIDE RECORDS SUMMARY | ~2019-02-27 | XMS | Encounter Summary ---
Demographics + + + | Address | [address] | | | [place] [address] | + + + | Home Phone | | + + + | Preferred Language | Unknown | + + + | Marital Status | | + + + | Episcopalian Affiliation | 1077 | + + + | Race | Unknown | + + + | Ethnic Group | Unknown | + + + Author + + + | Author | [facility] | | | and [place] | + + + | Organization | [facility] | | | and [place] | + + + | Address | Unknown | + + + | Phone | Unavailable | + + + Support + + + + + | Name | Relationship | Address | Phone | + + + + + | Aarti Sheets | ECON | [address] | | | | | [place] | | | | | [address] | | + + + + + Care Team Providers + +------+ + | Care Dock Operations Supervisor Name | Role | Phone | + +------+ + PCP | Unavailable | + +------+ + Encounter Details +--------+ + + + + | Date | Type | Department | Care Team | Description | +--------+ + + + + | 04/07/ | Hospital | [facility] | Oneal Cuenca MD | | | 1998 - | Encounter | MED CTR GENERIC IP | [address] | | | | | CONV DEPT [address] | [place], [place] | | | 04/10/ | | [place], | [address] | | | 1998 | | [place] [address] | | | | | | [phone] | | | +--------+ + + + [...] [place] | | | | | | [address] | | | | | | | | +--------+---------+ + + + documented as of this encounter Visit Diagnoses Not on filedocumented in this encounter"
--- OUTSIDE RECORDS SUMMARY | ~2019-02-27 | XMS | Encounter Summary ---
Demographics + + + | Address | [address] | | | [place] [address] | + + + | Home Phone | | + + + | Preferred Language | Unknown | + + + | Marital Status | | + + + | Mandaen Affiliation | 1077 | + + + [...] + | Aarti Hooks | ECON | [address] | | | | | [place] | | | | | [address] | | + + + + + Care Team Providers + +------+ + | Care Nurse Leader Name | Role | Phone | + [...] 2014 | | GASTROENTEROLOGY | [address], [place] | | | | | [address] [place] | [address] [place], [place] | | | | | [address] [place], [place] | [address] | | | | | [address] | | | | | | [phone] | | | +--------+ + + + [...] [place] | | | | | | [address] | | | | | | | | +--------+---------+ + + + documented as of this encounter Visit Diagnoses Not on filedocumented in this encounter
--- OUTSIDE RECORDS SUMMARY | ~2019-02-27 | XMS | Encounter Summary ---
Demographics + + + | Address | [address] | | | [place] [address] | + + + | Home Phone [...] + | Aarti Hooks | ECON | [address] | | | | | [place] | | | | | [address] | | + + + + + Care Team Providers + +------+ + | Care Cougar Hunter Name | Role | Phone | + [...] | | | MEDICAL CLIN[facility] [address] | [place], [place] | | | | | [address] [place], | [address] | | | | | [place] [address] | [phone] | | | | | [phone] | | | +--------+--------+ + + + [...] [place] | | | | | | [address] | | | | | | | | +--------+---------+ + + + documented as of this encounter Visit Diagnoses Not on filedocumented in this encounter"
--- OUTSIDE RECORDS SUMMARY | ~2019-02-27 | XMS | Encounter Summary ---
Demographics + + + | Address | [address] | | | [place] [address] | + + + | Home Phone [...] + | Aarti Hooks | ECON | [address] | | | | | [place] | | | | | [address] | | + + + + + Care Team Providers + +------+ + | Care Finisher Special Stocks Name | Role | Phone | + [...] + + | 11/04/ | Procedure | [facility] | | Presence of single | | 2019 | visit | CARDIOLOGY [place] | | chamber automatic | | | | [address] | | cardioverter/defibri | | | | [address] | | llator (AICD) | | | | [place], [place] | | (Primary Dx) | | | | [address] | | | | | | [phone] | | | +--------+ + + + [...] [place] | | | | | | [address] | | | | | | | [...] [place] PCP: Raul Pate DO : 1960MRN: [id number] | | | Primary cardiology provider: Toni Durand Primary | | | electrophysiology provider: None Device prison keeper: Parrable | | | Device type: Single chamber [...]
--- OUTSIDE RECORDS SUMMARY | ~2019-02-27 | XMS | Encounter Summary ---
Demographics + + + | Address | [address] | | | [place] [address] | + + + | Home Phone | | + + + | Preferred Language | Unknown | + + + | Marital Status | | + + + | Mosque Affiliation | 1077 | + + + | Race | Unknown | + + + | Ethnic Group | Unknown | + + + Author + + + | Author | [facility] | | | and [place] | + + + | Organization | [facility] | | | and [place] | + + + | Address | Unknown | + + + | Phone | Unavailable | + + + Support + + + + + | Name | Relationship | Address | Phone | + + + + + | Aarti Hooks | ECON | [address] | | | | | [place] | | | | | [address] | | + + + + + Care Team Providers + +------+ + | Care Mule Developer Name | Role | Phone | [...] + + | 02/10/ | Procedure | [facility] | | Presence of single | | 2019 | visit | CARDIOLOGY [place] | | chamber automatic | | | | [address] | | cardioverter/defibri | | | | [address] | | llator (AICD) | | | | [place], [place] | | | | | | [address] | | | | | | [phone] | | | +--------+ + + + [...] | | | | | [place] | | | | | | [address] | | | | | | | [...] [facility] | | NIKITA Salinas 02/18/2019 9:30 [facility] INTERROGATION REPORT Name: | | | Adis Hooks PCP: Raul Pate DO : 1960MRN: | | | [id number] Primary cardiology provider: Toni Retanared cloud Primary | | | electrophysiology provider: None Device drywall sander: FABPulous | | | Device type: Single chamber [...] | Procedure Note | + + | aSm Salinas RN - 02/10/2019 10:00 AM PST Formatting of this note might be | | different from the original.ICD INTERROGATION REPORT Name: Adis Hooks PCP: Raul | | Gio Pate DO : 1960MRN: [id number] Primary cardiology provider: Toni | | [facility] Primary electrophysiology provider: Polly Device drywall sander: FABPulousDe[employer] [place] Network[employer] | | type: Single chamber (Ventricular)Battery Longevity: [...]
--- OUTSIDE RECORDS SUMMARY | ~2019-02-27 | XMS | Encounter Summary ---
Demographics + + + | Address | [address] | | | [place] [address] | + + + | Home Phone [...] + | Aarti Hooks | ECON | [address] | | | | | [place] | | | | | [address] | | + + + + + Care Team Providers + +------+ + | Care Direct Marketing Representative Name | Role | Phone | [...] | | [address] [place], | [address] | | | | | [place] [address] | [phone] | | | | | [phone] | | | +--------+ + + + [...] [place] | | | | | | [address] | | | | | | | [...]
--- OUTSIDE RECORDS SUMMARY | ~2019-02-27 | XMS | Encounter Summary ---
Demographics + + + | Address | [address] | | | [place] [address] | + + + | Home Phone | | + + + | Preferred Language | Unknown | + + + | Marital Status | | + + + | Restoration Affiliation | 1077 | + + + [...] + | Aarti Hooks | ECON | [address] | | | | | [place] | | | | | [address] | | + + + + + Care Team Providers + +------+ + | Care Jackscrew Man Name | Role | Phone | + [...] Medication Refill | | 2018 | | [facility] | E, DO [address] | | | | | [facility] [address] | [place], [place] | | | | | [address] [place], | [address] | | | | | [place] [address] | [phone] | | | | | [phone] | | | +--------+--------+ + + + [...] | | | | | [place], [place] | | | | | | [address] | | | | | | | | +--------+---------+ + + + documented as of this encounter Visit Diagnoses Not on filedocumented in this encounter"
--- OUTSIDE RECORDS SUMMARY | ~2019-02-27 | XMS | Encounter Summary ---
Demographics + + + | Address | [address] | | | [place] [address] | + + + | Home Phone [...] + | Aarti Hooks | ECON | [address] | | | | | [place] | | | | | [address] | | + + + + + Care Team Providers + +------+ + | Care Senior Mobile Developer Name | Role | Phone | [...] Refill | | 2018 | | [facility] | E, DO [address] | | | | | MEDICAL [facility] [address] | [place], [place] | | | | | [address] [place], | [address] | | | | | [place] [address] | [phone] | | | | | [phone] | | | +--------+--------+ + + + [...] | | | | | [place], [place] | | | | | | [address] | | | | | | | | +--------+---------+ + + + documented as of this encounter Visit Diagnoses Not on filedocumented in this encounter"
--- OUTSIDE RECORDS SUMMARY | ~2019-02-27 | XMS | Encounter Summary ---
Demographics + + + | Address | [address] | | | [place] [address] | + + + | Home Phone | | + + + | Preferred Language | Unknown | + + + | Marital Status | | + + + | Yazidism Affiliation | 1077 | + + + [...] + | Aarti Hooks | ECON | [address] | | | | | [place] | | | | | [address] | | + + + + + Care Team Providers + +------+ + | Care Board Certified Family Physician Name | Role | Phone | [...] | | [address] [place], | [address] | | | | | [place] [address] | [phone] | | | | | [phone] | | | +--------+ + + + [...] [place] | | | | | | [address] | | | | | | | | +--------+---------+ + + + documented as of this encounter Visit Diagnoses Not on filedocumented in this encounter"
--- OUTSIDE RECORDS SUMMARY | ~2019-02-27 | XMS | Encounter Summary ---
Demographics + + + | Address | [address] | | | [place] [address] | + + + | Home Phone | | + + + | Preferred Language | Unknown | + + + | Marital Status | | + + + | Congregational Affiliation | 1077 | + + + [...] + | Aarti Hooks | ECON | [address] | | | | | [place] | | | | | [address] | | + + + + + Care Team Providers + +------+ + | Care Fundraising Manager Name | Role | Phone | [...] | | | [facility] [address] | [place], [place] | | | | | [address] [place], | [address] | | | | | [place] [address] | [phone] | | | | | [phone] | | | +--------+--------+ + + + [...] [place] | | | | | | [address] | | | | | | | | +--------+---------+ + + + documented as of this encounter Visit Diagnoses Not on filedocumented in this encounter"
--- OUTSIDE RECORDS SUMMARY | ~2019-02-27 | XMS | Encounter Summary ---
Demographics + + + | Address | [address] | | | [place] [address] | + + + | Home Phone [...] Organization | [facility] | | | and [place] | + + + | Address | Unknown | + + + | Phone | Unavailable | + + + Support + + + + + | Name | Relationship | Address | Phone | + + + + + | Aarti Hooks | ECON | [address] | | | | | [place] | | | | | [address] | | + + + + + Care Team Providers + +------+ + | Care Industrial Green Systems Designer Name | Role | Phone | [...] [place] | | | | | | [address] | [address] Phone: | | | | | | Phone: | [phone] | | | | | | [phone] | Fax: | | | | | | Fax: | [phone] | | | | | | [phone] | | + + + + + [...] right | | 2019 | Visit | [facility] | Janice, LEAD MECHANIC [address] | wrist (Primary Dx); | | | | MED[facility] [address] | [address] [place] | Need for influenza | | | | [address] [place], | [place] [address] | vaccination | | | | [place] [address] | [phone] | | | | | [phone] | | | | | | | Raul Pate, | | | | | | DO [address] | | | | | | [place], [place] | | | | | | [address] | | | | | | [phone] | | | | | | | [...] - PACEMAKER; Surgeon: Gabe Lawton MD; Location: [facility] PROCEDURE UNIT OTHER SURGICAL HISTORY [...] file Gets together: Not on file Attends quaker service: Not on file Active member of [...] This documentation prepared by Frieda Barragan medical collections specialist. All aspects of this chart review [...] | | | | [place] | | | | | | [address] | | | | | | | [...]
--- OUTSIDE RECORDS SUMMARY | ~2019-02-27 | XMS | Encounter Summary ---
Demographics + + + | Address | [address] | | | [place] [address] | + + + | Home Phone [...] + | Aarti Hooks | ECON | [address] | | | | | [place] | | | | | [address] | | + + + + + Care Team Providers + +------+ + | Care Correctional Food Service Supervisor Name | Role | Phone | [...] | | | [facility] [address] | [place], [place] | | | | | [address] [place], | [address] | | | | | [place] [address] | [phone] | | | | | [phone] | | | +--------+--------+ + + + [...] | | | | | [place], [place] | | | | | | [address] | | | | | | | | +--------+---------+ + + + documented as of this encounter Visit Diagnoses Not on filedocumented in this encounter"
--- OUTSIDE RECORDS SUMMARY | ~2019-02-27 | XMS | Encounter Summary ---
Demographics + + + | Address | [address] | | | [place] [address] | + + + | Home Phone [...] + | Aarti Hooks | ECON | [address] | | | | | [place] | | | | | [address] | | + + + + + Care Team Providers + +------+ + | Care Benefits Assistant Name | Role | Phone | [...] | 2018 | | [facility] | [facility] | | | | | MEDICAL CLIN[facility] [address] | | | | | | [facility], | | | | | | [place] [address] | | | | | | [phone] | | | +--------+--------+ + + + [...] [place] | | | | | | [address] | | | | | | | | +--------+---------+ + + + documented as of this encounter Visit Diagnoses Not on filedocumented in this encounter"
--- OUTSIDE RECORDS SUMMARY | ~2019-02-27 | XMS | Encounter Summary ---
Demographics + + + | Address | [address] | | | [place] [address] | + + + | Home Phone [...] + | Aarti Hooks | ECON | [address] | | | | | [place] | | | | | [address] | | + + + + + Care Team Providers + +------+ + | Care Tariff Supervisor Name | Role | Phone | [...] + + | 11/04/ | Procedure | [facility] | | Presence of single | | 2019 | visit | [facility] [place] | | chamber automatic | | | | [address] | | cardioverter/defibri | | | | [address] | | llator (AICD) | | | | [place], [place] | | (Primary Dx) | | | | [address] | | | | | | [phone] | | | +--------+ + + + [...] [place] | | | | | | [address] | | | | | | | [...] Sheets PCP: Raul Pate DO : 1960MRN: [id number] | | | Primary cardiology provider: Toni Durand Primary | | | electrophysiology provider: None Device air conditioning supervisor: [place]ap | | | Device type: Single chamber [...]
--- OUTSIDE RECORDS SUMMARY | ~2019-02-27 | XMS | Encounter Summary ---
Demographics + + + | Address | [address] | | | [place] [address] | + + + | Home Phone [...] + | Aarti Hooks | ECON | [address] | | | | | [place] | | | | | [address] | | + + + + + Care Team Providers + +------+ + | Care Marketing Financial Analyst Name | Role | Phone | [...] Medication Refill | | 2018 | | [facility] | E, DO [address] | | | | | MEDICAL CLINIC [address] | [place], [place] | | | | | [address] [place], | [address] | | | | | [place] [address] | [phone] | | | | | [phone] | | | +--------+--------+ + + + [...] | | | | | [place], [place] | | | | | | [address] | | | | | | | | +--------+---------+ + + + documented as of this encounter Visit Diagnoses + + | Diagnosis | + + | Allergic rhinitis due to other allergic trigger, unspecified seasonality | + + documented in this encounter"
--- OUTSIDE RECORDS SUMMARY | ~2019-02-27 | XMS | Encounter Summary ---
Demographics + + + | Address | [address] | | | [place] [address] | + + + | Home Phone [...] + | Aarti Hooks | ECON | [address] | | | | | [place] | | | | | [address] | | + + + + + Care Team Providers + +------+ + | Care Waste Collector Name | Role | Phone | + [...] | | | MEDICAL CLIN[facility] [address] | [place], [place] | | | | | [address] [place], | [address] | | | | | [place] [address] | [phone] | | | | | [phone] | | | +--------+--------+ + + + [...] | | | | | [place], [place] | | | | | | [address] | | | | | | | | +--------+---------+ + + + documented as of this encounter Visit Diagnoses Not on filedocumented in this encounter"
--- OUTSIDE RECORDS SUMMARY | ~2019-02-27 | XMS | Encounter Summary ---
Demographics + + + | Address | [address] | | | [place] [address] | + + + | Home Phone [...] + | Aarti Hooks | ECON | [address] | | | | | [place] | | | | | [address] | | + + + + + Care Team Providers + +------+ + | Care Printer Maintainer Name | Role | Phone | + [...] | | | MEDICAL CLIN[facility] [address] | [place], [place] | | | | | [address] [place], | [address] | | | | | [place] [address] | [phone] | | | | | [phone] | | | +--------+--------+ + + + [...] | | | | | [place], [place] | | | | | | [address] | | | | | | | | +--------+---------+ + + + documented as of this encounter Visit Diagnoses Not on filedocumented in this encounter"
--- OUTSIDE RECORDS SUMMARY | ~2019-02-27 | XMS | Encounter Summary ---
Demographics + + + | Address | [address] | | | [place] [address] | + + + | Home Phone [...] + | Aarti Hooks | ECON | [address] | | | | | [place] | | | | | [address] | | + + + + + Care Team Providers + +------+ + | Care Journeyman Electrician Name | Role | Phone | [...] | | | MEDICAL CLINIC [address] | [place], [place] | | | | | [address] [place], | [address] | | | | | [place] [address] | [phone] | | | | | [phone] | | | +--------+--------+ + + + [...] [place] | | | | | | [address] | | | | | | | | +--------+---------+ + + + documented as of this encounter Visit Diagnoses Not on filedocumented in this encounter"
--- OUTSIDE RECORDS SUMMARY | ~2019-02-27 | XMS | Encounter Summary ---
Demographics + + + | Address | [address] | | | [place] [address] | + + + | Home Phone | | + + + | Preferred Language | Unknown | + + + | Marital Status | | + + + | Synagogue Affiliation | 1077 | + + + [...] + | Aarti Hooks | ECON | [address] | | | | | [place] | | | | | [address] | | + + + + + Care Team Providers + +------+ + | Care Director Of Dementia Operations Name | Role | Phone | + [...] | Blood in | | [address], | | | | | stool Colon | | [address] | | | | | cancer | | [place], | | | | | screening | | [place] [address] | | | | | Pacemaker | | Phone: | | | | | [Z95.0]Blood | | [phone] | | | | | in stool | | Fax: | | | | | [K92.1]Colon | | [phone] | | | | | cancer | | | | | | | screening | | | | | | | [Z12.11] | | | +--------+--------+ + + + + Encounter Details +--------+ + + + + | Date | Type | Department | Care Team | Description | +--------+ + + + + | 02/22/ | Anesthesia | [facility] | Renard Chow MD | | | 2014 | Event | MED CTR MP INTRA OP | [address] | | | | | [address] | [place] | | | | | [place] | [address] | | | | | [address] | [phone] | | | | | [phone] | | | +--------+ + + + [...] + + | Periph | 02/22/15; 08; [id number] | 02/22/15824 by | 02/22/15 1038 by [...] 1643 (Removed/Completed by | | | | [facility] | [employer]) | | | | eral | | [...] | | | | | [place], [place] | | | | | | [address] | | | | | | | [...]
--- OUTSIDE RECORDS SUMMARY | ~2019-02-27 | XMS | Encounter Summary ---
Demographics + + + | Address | [address] | | | [place] [address] | + + + | Home Phone | | + + + | Preferred Language | Unknown | + + + | Marital Status | | + + + | Christian Affiliation | 1077 | + + + [...] + | Aarti Hooks | ECON | [address] | | | | | [place] | | | | | [address] | | + + + + + Care Team Providers + +------+ + | Care Watch Case Polisher Name | Role | Phone | + [...] | | | [facility] | [place], [place] | llator) in place | | | | [address] [place], | [address] | (Primary Dx); | | | | [place] [address] | [phone] | Allergic rhinitis | | | | [phone] | | due to other | | [...] - PACEMAKER; Surgeon: Gabe Lawton MD; Location: REPLACED BY [facility] Social History Social History Marital [...] | | | | | [place] | | | | | | [address] | | | | | | | | +--------+---------+ + + + documented as of this encounter Visit Diagnoses + + | Diagnosis | + + | ICD (implantable cardioverter-defibrillator) in place - Primary | + + | Allergic rhinitis due to other allergic trigger, unspecified seasonality | + + documented in this encounter
--- OUTSIDE RECORDS SUMMARY | ~2019-02-27 | XMS | Encounter Summary ---
Demographics + + + | Address | [address] | | | [place] [address] | + + + | Home Phone [...] + | Aarti Hooks | ECON | [address] | | | | | [place] | | | | | [address] | | + + + + + Care Team Providers + +------+ + | Care Refining Equipment Operator Name | Role | Phone | [...] | | | [facility] | [place], [place] | | | | | [address] [place], | [address] | | | | | [place] [address] | [phone] | | | | | [phone] | | | +--------+--------+ + + + [...] [place] | | | | | | [address] | | | | | | | | +--------+---------+ + + + documented as of this encounter Visit Diagnoses Not on filedocumented in this encounter"
--- OUTSIDE RECORDS SUMMARY | ~2019-02-27 | XMS | Encounter Summary ---
Demographics + + + | Address | [address] | | | [place] [address] | + + + | Home Phone [...] + | Aarti Hooks | ECON | [address] | | | | | [place] | | | | | [address] | | + + + + + Care Team Providers + +------+ + | Care Foam Rubber Curer Name | Role | Phone | + [...] | | | [facility] | [place], [place] | | | | [address] [place], | [address] | | | | | [place] [address] | [phone] | | | | | [phone] | | | +--------+--------+ + + + [...] | | | | | [place], [place] | | | | | | [address] | | | | | | | | +--------+---------+ + + + documented as of this encounter Visit Diagnoses Not on filedocumented in this encounter"
--- OUTSIDE RECORDS SUMMARY | ~2019-02-27 | XMS | Encounter Summary ---
Demographics + + + | Address | [address] | | | [place] [address] | + + + | Home Phone [...] + | Aarti Hooks | ECON | [address] | | | | | [place] | | | | | [address] | | + + + + + Care Team Providers + +------+ + | Care Motion Picture Director Name | Role | Phone | [...] left | | 2019 | Visit | [facility] | [facility], CHIEF OPERATOR LOCK TENDER [address] | lower limb (Primary | | | | [facility] [address] | [address] [place] | Dx) | | | | [address] [place], | [place] [address] | | | | | [place] [address] | [phone] | | | | | [phone] | | | +--------+---------+ + + + [...] made to ensure accuracy. However, inadvertent computerized farm agent errors may be pre sent documented constantine peguero this encounter Plan of Treatment +--------+---------+ + + + | Date | Type | Specialty | Care Team | Description | +--------+---------+ + + + | 09/21/ | Office | Cardiology | Toni Durand, | | | 2019 | Visit | | MD Jesus RUGGIERO | | | | | | [place], [place] | | | | | | [address] | | | | | | | | +--------+---------+ + + + documented as of this encounter Visit Diagnoses + + | Diagnosis | + + | Cellulitis of left lower limb - Primary | + + documented in this encounter
--- OUTSIDE RECORDS SUMMARY | ~2019-02-27 | XMS | Encounter Summary ---
Demographics + + + | Address | [address] | | | [place] [address] | + + + | Home Phone [...] + | Aarti Sheets | ECON | [address] | | | | | [place] | | | | | [address] | | + + + + + Care Team Providers + +------+ + | Care Debt Collection Specialist Name | Role | Phone | + +------+ + PCP | Unavailable | + +------+ + Encounter Details +--------+ + + + + | Date | Type | Department | Care Team | Description | +--------+ + + + + | 03/30/ | Hospital | [facility] | Oneal Cuenca MD | | | 1998 - | Encounter | MED CTR MED ONC | [address] | | | | | [address] [place] | [place] | | | 04/07/ | | [place] [address] | [address] | | | 1998 | | [phone] | | | +--------+ + + + [...] [place] | | | | | | [address] | | | | | | | | +--------+---------+ + + + documented as of this encounter Visit Diagnoses Not on filedocumented in this encounter"
--- OUTSIDE RECORDS SUMMARY | ~2019-02-27 | XMS | Encounter Summary ---
Demographics + + + | Address | [address] | | | [place] [address] | + + + | Home Phone [...] + | Aarti Hooks | ECON | [address] | | | | | [place] | | | | | [address] | | + + + + + Care Team Providers + +------+ + | Care Customer Care Specialist Name | Role | Phone | [...] Visit | [facility] | E, DO [address] | lower limb (Primary | | | | [facility] | [place], [place] | Dx); Rash | | | | [address] [place], | [address] | | | | | [place] [address] | [phone] | | | | | [phone] | | | +--------+---------+ + + + [...] mood and affect. Entered by Charlie [facility], acting as scribe for Adrián Pate [...] [place] | | | | | | [address] | | | | | | | | +--------+---------+ + + + documented as of this encounter Visit Diagnoses + + | Diagnosis | + + | Cellulitis of left lower limb - Primary | + + | Rash Rash and other nonspecific skin eruption | + + documented in this encounter
--- OUTSIDE RECORDS SUMMARY | ~2019-02-27 | XMS | Encounter Summary ---
Demographics + + + | Address | [address] | | | [place] [address] | + + + | Home Phone [...] + | Aarti Hooks | ECON | [address] | | | | | [place] | | | | | [address] | | + + + + + Care Team Providers + +------+ + | Care Ceo And President Name | Role | Phone | + [...] in | [address] [place], | | | | | stool | [place], [place] | [address] | | | | | Special | [address] [place] | [place], | | | | | screening | [place], [place] | [place] [address] | | | | | for | [address] | Phone: | | | | | malignant | Phone: | [phone] | | | | | neoplasms, | [phone] | Fax: | | | | | colon | Fax: | [phone] | | | | | Procedures | [phone] | | | | | | [place] [...] + + | 02/07/ | Telephone | [facility] | Gabe Lawton MD | Appointment | | 2014 | | GASTROENTEROLOGY | [address] [place], [place] | (procedure ) | | | | [address] [place] | [address] [place] | | | | | [address] [place], [place] | [address] | | | | | [address] | | | | | | [phone] | | | +--------+ + + + [...] [place] | | | | | | [address] | | | | | | | [...]
--- OUTSIDE RECORDS SUMMARY | ~2019-02-27 | XMS | Encounter Summary ---
Demographics + + + | Address | [address] | | | [place] [address] | + + + | Home Phone | | + + + | Preferred Language | Unknown | + + + | Marital Status | | + + + | Buddhist Affiliation | 1077 | + + + | Race | Unknown | + + + | Ethnic Group | Unknown | + + + Author + + + | Author | [facility] | | | and [place] | + + + | Organization | [facility] | | | and [place] | + + + | Address | Unknown | + + + | Phone | Unavailable | + + + Support + + + + + | Name | Relationship | Address | Phone | + + + + + | Aarti Hooks | ECON | [address] | | | | | [place] | | | | | [address] | | + + + + + Care Team Providers + +------+ + | Care Racehorse Trainer Name | Role | Phone | + [...] + + | 01/05/ | Telephone | [facility] | [place]oni [place], | Device Check | | 2019 | | CARDIOLOGY [place] | [address] | | | | | [address] | [place], [place] | | | | | [place], [place] | [address] | | | | | [address] | | | | | | [phone] | | | +--------+ + + + [...] [place] | | | | | | [address] | | | | | | | | +--------+---------+ + + + documented as of this encounter Visit Diagnoses Not on filedocumented in this encounter"
[2019-02-27] MEDS ORDERED: GABAPENTIN100 MG PO (16:52)
[2019-02-27] MEDS ORDERED: TAMSULOSIN HCL0.4 MG PO (16:52)
[2019-02-27] MEDS ORDERED: SUDOGEST30 MG PO (16:52)
[2019-02-27] MEDS ORDERED: ATENOLOL50 MG PO (16:52)
[2019-02-27] MEDS ORDERED: FINASTERIDE5 MG PO (16:52)
[2019-02-27] MEDS ORDERED: NORCO 7.5-3251 EACH PO (18:24)
[2019-02-27] MEDS ORDERED: ONDANSETRON ODT8 MG PO (18:24)
[2019-02-27] MEDS ORDERED: NEURONTIN100 MG PO (21:11)
[2019-02-27] MEDS ORDERED: MULTI VITAMIN1 EACH PO (21:11)
== END 2019-02-27 18:58 | disposition home or self-care (01) ==
LOC: ED 16:33
DX: S22.42XA Multiple fractures of ribs, left side, initial encounter for closed fracture (principal); X36.1XXA Avalanche, landslide, or mudslide, initial encounter; Z88.0 Allergy status to penicillin; Z88.5 Allergy status to narcotic agent; Z79.899 Other long term (current) drug therapy
CPT/HCPCS: 71101; 80053; 81001; 85025; 96374; 96375; 99283-25; A9270; J1885; J3010

== ENCOUNTER 2019-02-27 20:33 | Inpatient (IN) | payer OTHER ==
[~2019-02-27] VITALS: Ht 170.2 cm; Wt 101.7 kg
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
--- OUTSIDE RECORDS SUMMARY | ~2019-02-27 | XMS | Encounter Summary ---
Demographics + + + | Address | [address] | | | [place] [address] | + + + | Home Phone | | + + + | Preferred Language | Unknown | + + + | Marital Status | | + + + | Rastafarian Affiliation | [id number] | + + + | Race | Unknown | + + + | Ethnic Group | Unknown | + + + Author + + + | Author | [facility] | | | and [place] | + + + | Organization | [facility] | | | and [place] | + + + | Address | Unknown | + + + | Phone | Unavailable | + + + Support + + + + + | Name | Relationship | Address | Phone | + + + + + | Aarti Hooks | ECON | [address] | | | | | [place] | | | | | [address] | | + + + + + Care Team Providers + +------+ + | Care Horseradish Maker Name | Role | Phone | + +------+ + | Raul Pate DO | PCP | | + +------+ + Reason for Visit + + + | Reason | Comments | + + + | Medication Refill | | + + + Encounter Details +--------+--------+ + + + | Date | Type | Department | Care Team | Description | +--------+--------+ + + + | 01/14/ | Refill | [facility] | Bethany Finney, | Medication Refill | | 2018 | | [facility] | [facility] [address] [place] | | | | | [facility] [address] | [place] [address] | | | | | [address] [place], | [phone] | | | | | [place] [address] | | | | | | [phone] | | | +--------+--------+ + + + Social History + +-------+ +--------+------+ | Tobacco Use | Types | Packs/Day | Years | Date | | | | | Used | | + +-------+ +--------+------+ | Former Smoker | | | | | + +-------+ +--------+------+ + +---+---+---+ | Smokeless Tobacco: | | | | | Former User | | | | + +---+---+---+ + + +---------+ + | Alcohol Use | Drinks/Week | oz/Week | Comments | + + +---------+ + | No | | | | + + +---------+ + + + + | Sex Assigned at | Date Recorded | | | | + + + | Not on file | | + + + + + + + | Job Start Date | Occupation | Industry | + + + + | Not on file | Not on file | Not on file | + + + + + + + + | Travel History | Travel Start | Travel End | + + + + + + | No recent travel history available. | + + documented as of this encounter Plan of Treatment +--------+---------+ + + + | Date | Type | Specialty | Care Team | Description | +--------+---------+ + + + | 09/21/ | Office | Cardiology | Toni Durand, | | | 2019 | Visit | | MD Jesus RUGGIERO | | | | | | [place], [place] | | | | | | [address] | | | | | | | | +--------+---------+ + + + documented as of this encounter Visit Diagnoses + + | Diagnosis | + + | Allergic rhinitis due to other allergic trigger, unspecified seasonality | + + documented in this encounter"
--- OUTSIDE RECORDS SUMMARY | ~2019-02-27 | XMS | Encounter Summary ---
Demographics + + + | Address | [address] | | | [place] [address] | + + + | Home Phone | | + + + | Preferred Language | Unknown | + + + | Marital Status | | + + + | [employer] Affiliation | 1077 | + + + | Race | Unknown | + + + | Ethnic Group | Unknown | + + + Author + + + | Author | [facility] | | | and [place] | + + + | Organization | [facility] | | | and [place] | + + + | Address | Unknown | + + + | Phone | Unavailable | + + + Support + + + + + | Name | Relationship | Address | Phone | + + + + + | Aarti Hooks | ECON | [address] | | | | | [place] | | | | | [address] | | + + + + + Care Team Providers + +------+ + | Care Assistant Director Name | Role | Phone | + +------+ + | Raul Pate DO | PCP | | + +------+ + Reason for Visit Auth/Cert +--------+--------+ + + + + | Status | Reason | Specialty | Diagnoses / | Referred By | Referred To | | | | | Procedures | Contact | Contact | +--------+--------+ + + + + | Closed | | | Diagnoses | | Leighann, | | | | | Pacemaker | | Gabe Longoria MD | | | | | Blood in | | [address], | | | | | stool Colon | | [address] | | | | | cancer | | [place], | | | | | screening | | [place] [address] | | | | | Pacemaker | | Phone: | | | | | [Z95.0]Blood | | [phone] | | | | | in stool | | Fax: | | | | | [K92.1]Colon | | [phone] | | | | | cancer | | | | | | | screening | | | | | | | [Z12.11] | | | +--------+--------+ + + + + Encounter Details +--------+ + + + + | Date | Type | Department | Care Team | Description | +--------+ + + + + | 02/22/ | Hospital | [facility] | Gabe Lawton MD | Special screening | | 2015 | Encounter | [facility] | [address], [place] | for malignant | | | | [address] | [address] [place], [place] | neoplasms, colon | | | | [place], [place] | [address] | (Primary Dx); Heme | | | | [address] | | positive stool | | | | [phone] | | | +--------+ + + + + Social History + +-------+ +--------+------+ | Tobacco Use | Types | Packs/Day | Years | Date | | | | | Used | | + +-------+ +--------+------+ | Former Smoker | | | | | + +-------+ +--------+------+ + + + | Sex Assigned at [...] + + documented as of this encounter Last Filed Vital Signs + + + + + | Vital Sign | Reading | Time Taken | Comments | + + + + + | Blood Pressure | 110/74 | 02/22/2015 10:15 AM | | | | | PST | | + + + + + | Pulse | 50 | 02/22/2015 10:30 AM | | | | | PST | | + + + + + | Temperature | 36.4 C (97.5 F) | 02/22/2015 8:02 AM | | | | | PST | | + + + + + | Respiratory Rate | 14 | 02/22/2015 10:30 AM | | | | | PST | | + + + + + | Oxygen Saturation | 99% | 02/22/2015 10:30 AM | | | | | PST | | + + + + + | Inhaled Oxygen | - | - | | | Concentration | | | | + + + + + | Weight | 97.5 kg (215 lb) | 02/22/2015 8:02 AM | | | | | PST | | + + + + + | Height | 172.7 cm (5' 8") | 02/22/2015 8:02 AM | | | | | PST | | + + + + + | Body Mass Index | 32.69 | 02/22/2015 8:02 AM | | | | | PST | | + + + + + documented in this encounter Medications at Time of Discharge + + + +---------+ + + | Medication | Sig | Dispensed | Refills | Start | End Date | | | | | | Date | | + + + +---------+ + + | finasteride | | | 0 | 01/31/20 | | | (PROSCAR) 5 mg | | | | 15 | | | tablet | | | | | | + + + +---------+ + + | tamsulosin | 0.4 mg Daily. | | 0 | 02/03/20 | | | (FLOMAX) 0.4 mg CAPS | | | | 15 | | + + + +---------+ + + | atenolol | | | 0 | 02/03/20 | | | (TENORMIN) 50 mg | | | | 15 | 8 | | tablet | | | | | | + + + +---------+ + + | pseudoePHEDrine | | | 0 | 02/05/20 | | | (SUDAFED) 30 mg | | | | 15 | 8 | | tablet | | | | | | + + + +---------+ + + documented as of this encounter Plan of Treatment +--------+---------+ + + + | Date | Type | Specialty | Care Team | Description | +--------+---------+ + + + | 09/21/ | Office | Cardiology | Toni Durand, | | | 2020 | Visit | | MD Jesus RUGGIERO | | | | | | [place] | | | | | | [address] | | | | | | | | +--------+---------+ + + + documented as of this encounter Procedures + +--------+ + + + | Procedure Name | Priori | Date/Time | Associated Diagnosis | Comments | | | ty | | | | + +--------+ + + + | HELICOBACTER PYLORI | Routin | 02/22/2015 | | Results for this | | BIOPSY | e | 9:13 AM | | procedure are in the | | | | PST | | results section. | + +--------+ + + + | EGD | Routin | 02/22/2015 | | Results for this | | | e | 8:55 AM | | procedure are in the | | | | PST | | results section. | + +--------+ + + + | COLONOSCOPY | Routin | 02/22/2015 | | Results for this | | | e | 8:55 AM | | procedure are in the | | | | PST | | results section. | + +--------+ + + + | EGD / COLONOSCOPY | | 02/22/2015 | Pacemaker Blood | | | | | 8:53 AM | in stool Colon | | | | | PST | cancer screening | | + +--------+ + + + | SURGICAL PATHOLOGY | Routin | 02/22/2015 | | Results for this | | EXAM | e | 12:00 AM | | procedure are in the | | | | PST | | results section. | + +--------+ + + + documented in this encounter Results Helicobactor pylori Biopsy (02/22/2015 9:13 AM PST) + + + + + + | Component | Value | Ref Range | Performed | Pathologist | | | | | At | Signature | + + + + + + | Helicobacte | Negative | Negative | [facility] | | | r pylori Ag | | | [facility] - | | | | | | LABORATORY | | + + + + + + + + | Specimen | + + | Tissue - Entire | | pyloric antrum (body | | structure) | + + + + + + + | Performing | Address | City/State/Zipcode | Phone Number | | Organization | | | | + + + + + | [facility] | [address] | [place] | [phone] | | [facility] | | [address] | | | - LABORATORY | | | | + + + + + EGD (02/22/2015 8:55 AM PST) + + | Specimen | + + | | + + + + -+ | Narrative | Performed At | + + -+ | | [facility] | | GastroenterologyPatient Name: Adis HooksProcedure Date: 02/22/2015 | [facility] | | 8:55 AMMRN: [id number] #: [id number] of : | | | 1Admit Type: AmbulatoryAge: 54Room: [facility] 01Gender: MaleNote | | | Status: FinalizedAttending MD: Gabe Lawton, MDProcedure: | | | Upper GI endoscopyIndications: Heme positive | | | stoolProviders: Gabe Lawton MD, Kerry Fall | | | NIKITA Goldberg, Angie Jackson, | | | Loan Examiner, Renard Chow MD (Anesthesia | | | Staff)Referring MD: Adrián Pate DO (Referring | | | MD)Medicines: Sedation Required Anesthesia Staff | | | AssistanceComplications: No immediate complications. Estimated | | | blood loss: Minimal.Procedure: Pre-Anesthesia Assessment: | | | - Prior to the procedure, a History and Physical was performed, and | | | patient medications, allergies and sensitivities were reviewed. | | | The patient's tolerance of previous anesthesia was reviewed. | | | - Prior to the procedure, a History and Physical was performed, | | | and patient medications and allergies were reviewed. The | | | patient is competent. The risks and benefits of the procedure | | | and the sedation options and risks were discussed with the | | | patient. All questions were answered and informed consent was | | | obtained. Patient identification and proposed procedure were | | | verified by the physician, the nurse, the anesthesiologist and | | | the residential service technician in the endoscopy suite. Mental Status | | | Examination: alert and oriented. Airway Examination: | | | small/crowded oropharyngeal airway and Mallampati Class III (part of | | | the uvula and soft palate visualized). Respiratory Examination: | | | clear to auscultation. CV Examination: normal. Prophylactic | | | Antibiotics: The patient does not require prophylactic | | | antibiotics. Prior Anticoagulants: The patient has taken no | | | previous anticoagulant or antiplatelet agents. ASA Grade | | | Assessment: III - A patient with severe systemic disease. After | | | reviewing the risks and benefits, the patient was deemed in | | | satisfactory condition to undergo the procedure. The anesthesia plan | | | was to use monitored anesthesia care (MAC). Immediately prior | | | to administration of medications, the patient was re-assessed | | | for adequacy to receive sedatives. The heart rate, respiratory | | | rate, oxygen saturations, blood pressure, adequacy of pulmonary | | | ventilation, and response to care were monitored throughout | | | the procedure. The physical status of the patient was | | | re-assessed after the procedure. - After reviewing the risks and | | | benefits, the patient was deemed in satisfactory condition to | | | undergo the procedure. - Using IV propofol under the supervision | | | of an anesthesiologist was determined to be medically | | | necessary for this procedure based on severe comorbidity | | | (greater than ASA Grade II). - After reviewing the risks and | | | benefits, the patient was deemed in satisfactory condition to | | | undergo the procedure. - Immediately prior to administration of | | | medications, the patient was re-assessed for adequacy to | | | receive sedatives. - The heart rate, respiratory rate, oxygen | | | saturations, blood pressure, adequacy of pulmonary ventilation, | | | and response to care were monitored throughout the procedure. | | | - The physical status of the patient was re-assessed after the | | | procedure. After obtaining informed consent, the endoscope was | | | passed under direct vision. Throughout the procedure, the | | | patient's blood pressure, pulse, and oxygen saturations were | | | monitored continuously. The Endoscope was introduced through | | | the mouth, and advanced to the third part of duodenum. The | | | upper GI endoscopy was accomplished without difficulty. The | | | patient tolerated the procedure well.Findings: The | | | cricopharyngeus, upper third of the esophagus, middle third of the | | | esophagus, lower third of the esophagus, lower esophageal | | | sphincter and gastroesophageal junction were normal. The | | | Z-line was regular and was found 39 cm from the incisors. The | | | entire examined stomach was normal. Biopsies were taken with a cold | | | forceps for Helicobacter pylori testing using CLOtest. | | | Verification of patient identification for the specimen was | | | done. Estimated blood loss was minimal. The ampulla, | | | duodenal bulb, first part of the duodenum, 2nd part of the | | | duodenum and 3rd part of the duodenum were normal. The | | | retroflexed view confirmed previous findings,Impression: - | | | Normal cricopharyngeus, upper third of esophagus, middle third of | | | esophagus, lower third of esophagus, lower esophageal sphincter and | | | gastroesophageal junction. - Z-line regular, 39 cm from | | | the incisors. - Normal stomach. Biopsied. - Normal | | | ampulla, duodenal bulb, first part of the duodenum, 2nd part of | | | the duodenum and 3rd part of the duodenum. - The retroflexed | | | view confirmed previous findings,Recommendation: - Written | | | discharge instructions were provided to the patient. - Discharge | | | patient to home (ambulatory). - Mechanical soft diet for 3 | | | days. - Perform a colonoscopy today. - Continue present | | | medications. - No aspirin, ibuprofen, naproxen, or other | | | non-steroidal anti-inflammatory drugs for 7 days after polyp | | | removal. - Await pathology results. - Return to primary | | | care physician as previously scheduled. - Telephone GI clinic | | | for pathology results in 1 week.Gabe Lawton MD02/22/2015 9:31 | | | AMThis report has been signed electronically.Number of Addenda: 0Note | | | Initiated On: 02/22/2015 8:55 AMScope Withdrawal Time: 0 hours 0 | | | minutes 0 seconds Total Procedure Duration: 0 hours 3 minutes 25 | | | seconds Scope In: 9:09:15 AMScope Out: 9:12:40 AM [facility]. | | | [facility], [address] [place] [address] | | | [phone] | | | - Continue present medications. | | | - No aspirin, ibuprofen, naproxen, or other non-steroidal | | | anti-inflammatory drugs for 7 days after polyp removal. | | | - Await pathology results. | | | - Return to primary care physician as previously scheduled. | | | - Telephone GI clinic for pathology results in 1 week. | | |Gabe Lawton MD | | |02/22/2015 9:31 AM | | |This report has been signed electronically. | | |Number of Addenda: 0 | | |Note Initiated On: 02/22/2015 8:55 AM | | |Scope Withdrawal Time: 0 hours 0 minutes 0 seconds | | |Total Procedure Duration: 0 hours 3 minutes 25 seconds | | |Scope In: 9:09:15 AM | | |Scope Out: 9:12:40 AM | | | [facility]. [facility], [address] [place] [address] | | | [address] | | + + -+ + +---------+ + + | Performing | Address | City/State/Zipcode | Phone Number | | Organization | | | | + +---------+ + + | [facility] | | | | + +---------+ + + COLONOSCOPY (02/22/2015 8:55 AM PST) + + | Specimen | + + | | + + + + -+ | Narrative | Performed At | + + -+ | | [facility] | | GastroenterologyPatient Name: Adis SheetsProcedure Date: 02/22/2015 | [place] | | 8:55 AMMRN: [id number] #: [id number] of : | | | 1Admit Type: AmbulatoryAge: 54Room: [facility] 01Gender: MaleNote | | | Status: FinalizedAttending MD: JOSE JUAN Baileyrocedure: | | | ColonoscopyIndications: Screening for colorectal malignant | | | neoplasmProviders: Gabe Lawton MD, Kerry Fall | | | NIKITA Goldberg, Angie Jackson, | | | Loan Examiner, Renard Chow MD (Anesthesia | | | Staff)Referring MD: Adrián Paet DO (Referring | | | MD)Medicines: Sedation Required Anesthesia Staff | | | AssistanceComplications: No immediate complications. Estimated | | | blood loss: None.Procedure: Pre-Anesthesia Assessment: - | | | Prior to the procedure, a History and Physical was performed, and | | | patient medications, allergies and sensitivities were reviewed. The | | | patient's tolerance of previous anesthesia was reviewed. | | | - Prior to the procedure, a History and Physical was performed, and | | | patient medications and allergies were reviewed. The patient is | | | competent. The risks and benefits of the procedure and the | | | sedation options and risks were discussed with the patient. All | | | questions were answered and informed consent was obtained. | | | Patient identification and proposed procedure were verified by | | | the physician, the nurse, the anesthesiologist and the | | | residential service technician in the endoscopy suite. Mental Status Examination: | | | alert and oriented. Airway Examination: normal oropharyngeal | | | airway and neck mobility and Mallampati Class III (part of the | | | uvula and soft palate visualized). Respiratory Examination: clear to | | | auscultation. CV Examination: normal. Prophylactic Antibiotics: | | | The patient does not require prophylactic antibiotics. Prior | | | Anticoagulants: The patient has taken no previous anticoagulant | | | or antiplatelet agents. ASA Grade Assessment: III - A patient | | | with severe systemic disease. After reviewing the risks and | | | benefits, the patient was deemed in satisfactory condition to | | | undergo the procedure. The anesthesia plan was to use monitored | | | anesthesia care (MAC). Immediately prior to administration of | | | medications, the patient was re-assessed for adequacy to | | | receive sedatives. The heart rate, respiratory rate, oxygen | | | saturations, blood pressure, adequacy of pulmonary ventilation, and | | | response to care were monitored throughout the procedure. The | | | physical status of the patient was re-assessed after the | | | procedure. - After reviewing the risks and benefits, the patient | | | was deemed in satisfactory condition to undergo the procedure. | | | - Using IV propofol under the supervision of an | | | anesthesiologist was determined to be medically necessary for | | | this procedure based on severe comorbidity (greater than ASA | | | Grade II). - Immediately prior to administration of medications, | | | the patient was re-assessed for adequacy to receive sedatives. | | | - The heart rate, respiratory rate, oxygen saturations, blood | | | pressure, adequacy of pulmonary ventilation, and response to | | | care were monitored throughout the procedure. - The | | | physical status of the patient was re-assessed after the procedure. | | | After I obtained informed consent, the scope was passed under | | | direct vision. Throughout the procedure, the patient's blood | | | pressure, pulse, and oxygen saturations were monitored | | | continuously. The endoscope was introduced through the anus and | | | advanced to the cecum, identified by the appendiceal orifice, | | | ileocecal valve and palpation. The colonoscopy was performed | | | without difficulty. The patient tolerated the procedure well. | | | The quality of the bowel preparation was excellent.Findings: The | | | perianal and digital rectal examinations were normal. Pertinent | | | negatives include normal sphincter tone, no palpable rectal lesions | | | and normal prostate (size, shape, and consistency). A | | | few small-mouthed diverticula were found in the sigmoid colon. A | | | sessile polyp was found in the distal sigmoid colon. The polyp was 15 | | | mm in size. The polyp was removed with a hot snare. Resection | | | and retrieval were complete. Verification of patient | | | identification for the specimen was done. Estimated blood loss: | | | none. The exam was otherwise without abnormality. | | | Non-bleeding internal hemorrhoids were found during retroflexion and | | | were moderate. No additional abnormalities were found on | | | retroflexion.Impression: - Diverticulosis in the sigmoid colon. | | | - One 15 mm polyp in the distal sigmoid colon. Resected and | | | retrieved. - The examination was otherwise normal. - | | | Non-bleeding internal hemorrhoids.Recommendation: - Written | | | discharge instructions were provided to the patient. - Discharge | | | patient to home (ambulatory). - Mechanical soft diet for 3 | | | days. - No aspirin, ibuprofen, naproxen, or other non-steroidal | | | anti-inflammatory drugs for 7 days after polyp removal. - | | | Continue present medications. - Await pathology results. | | | - Repeat colonoscopy for surveillance based on pathology results. | | | - Return to primary care physician as previously scheduled. - | | | Telephone GI clinic for pathology results in 1 week.Gabe Lawton, | | | 02/22/2015 9:34 AMThis report has been signed electronically.Number | | | of Addenda: 0Note Initiated On: 02/22/2015 8:55 AMScope Withdrawal | | | Time: 0 hours 5 minutes 6 seconds Total Procedure Duration: 0 hours 9 | | | minutes 6 seconds Scope In: 9:14:20 AMScope Out: 9:23:26 AM | | | [facility], [facility] [address] [place], [place] | | | [address] | | | anti-inflammatory drugs for 7 days after polyp removal. | | | - Continue present medications. | | | - Await pathology results. | | | - Repeat colonoscopy for surveillance based on pathology results. | | | - Return to primary care physician as previously scheduled. | | | - Telephone GI clinic for pathology results in 1 week. | | |Gabe Lawton MD | | |02/22/2015 9:34 AM | | |This report has been signed electronically. | | |Number of Addenda: 0 | | |Note Initiated On: 02/22/2015 8:55 AM | | |Scope Withdrawal Time: 0 hours 5 minutes 6 seconds | | |Total Procedure Duration: 0 hours 9 minutes 6 seconds | | |Scope In: 9:14:20 AM | | |Scope Out: 9:23:26 AM | | | [facility], [address], [place], [place] | | | [address] | | + + -+ + +---------+ + + | Performing | Address | City/State/Zipcode | Phone Number | | Organization | | | | + +---------+ + + | [facility] | | | | + +---------+ + + Surgical Pathology Exam (02/22/2015 12:00 AM PST) + + | Specimen | + + | | + + + + + | Narrative | Performed At | + + + | SPECIMEN(S): A SIGMOID POLYP SPECIMEN SOURCE: A. SIGMOID POLYP | [facility] | | CLINICAL HISTORY: Z95.0 (presence of cardiac pacemaker), K92.1 | [facility] | | (melena), Z12.11 (encounter for screening for malignant neoplasm of | | | colon) MICROSCOPIC DESCRIPTION: Histologic sections of all | | | submitted blocks are examined by light microscopy. These findings, | | | together with the gross examination, support the pathologic diagnosis. | | | FINAL PATHOLOGIC DIAGNOSIS: Sigmoid colon polyp, biopsy: - | | | Tubular adenoma (1 fragment). JVR:[facility]:C2NR GROSS | | | DESCRIPTION: Received in formalin labeled "Adis Sheets" and "sigmoid | | | polyp" on the requisition is a 0.3 x 0.3 x 0.2 cm pink-quintero tissue | | | fragment, submitted, all in (A1). ka:JVR:[facility] PERFORMING | | | LABORATORY: Tissue processing and slide preparation were performed by | | | [employer], [address], [address], [place] [address] | | | ([place]: Easton Diallo M.D. CLIA#: [id number]). | | | Professional interpretation was performed by [employer], | | | [facility], [address] | | | [place] [address] ([place]: Easton Diallo M.D.; CLIA#: | | | [id number]). Diagnostician: Easton Diallo MD Pathologist | | | Electronically Signed 02/23/2015 | | + + + + +---------+ + + | Performing | Address | City/State/Zipcode | Phone Number | | Organization | | | | + +---------+ + + | [facility] | | | | | [facility] | | | | + +---------+ + + documented in this encounter Visit Diagnoses + + | Diagnosis | + + | Special screening for malignant neoplasms, colon - Primary | + + | Heme positive stool Nonspecific abnormal finding in stool contents | + + documented in this encounter Administered Medications + +---------+ +------+------+------+ | Medication Order | MAR | Action | Dose | Rate | Site | | | Action | Date | | | | + +---------+ +------+------+------+ | lactated ringers (LR) infusion | New Bag | 02/23/20 | | | | | at 100 mL/hr, Intravenous, | | 15 8:29 | | | | | CONTINUOUS, Starting 02/22/15 | | AM PST | | | | | at 0845, Pre-op | | | | | | + +---------+ +------+------+------+ +---------+ +---+-------+---+ | New Bag | 02/23/20 | | 100 | | | | 15 8:26 | | mL/hr | | | | AM PST | | | | +---------+ +---+-------+---+ +---+---+ | | | +---+---+ documented in this encounter
--- OUTSIDE RECORDS SUMMARY | ~2019-02-27 | XMS | Encounter Summary ---
Demographics + + + | Address | [address] | | | [place] [address] | + + + | Home Phone | | + + + | Preferred Language | Unknown | + + + | Marital Status | | + + + | Muslim Affiliation | 1077 | + + + | Race | Unknown | + + + | Ethnic Group | Unknown | + + + Author + + + | Author | [facility] | | | and [place] | + + + | Organization | [facility] | | | and [place] | + + + | Address | Unknown | + + + | Phone | Unavailable | + + + Support + + + + + | Name | Relationship | Address | Phone | + + + + + | Aarti Hooks | ECON | [address] | | | | | [place] | | | | | [address] | | + + + + + Care Team Providers + +------+ + | Care Senior Quality Control Inspector Name | Role | Phone | + +------+ + | Raul Paet DO | PCP | | + +------+ + Reason for Visit + + + | Reason | Comments | + + + | Medication Refill | | + + + Encounter Details +--------+--------+ + + + | Date | Type | Department | Care Team | Description | +--------+--------+ + + + | 07/07/ | Refill | [facility] | Brittney Choe, | Medication Refill | | 2018 | | [facility] | CC SUPPLEMENTAL MANAGER | | | | | [facility] [address] | | | | | | [address] [facility], | | | | | | [place] [address] | | | | | | [phone] | | | +--------+--------+ + + + Social History + + + +--------+ + | Tobacco Use | Types | Packs/Day | Years | Date | | | | | Used | | + + + +--------+ + | Former Smoker | Cigarettes | 1 | 20 | 1980 - 1999 | + + + +--------+ + + +------+---+--------+ | Smokeless Tobacco: | Chew | | Quit: | | Former User | | | 1981 | + +------+---+--------+ + + +---------+ + | Alcohol Use | Drinks/Week | oz/Week | Comments | + + +---------+ + | No | 0 Glasses of wine | 0.0 | | | | 0 Cans of beer 0 | | | | | Shots of liquor 0 | | | | | Standard drinks or | | | | | equivalent | | | + + +---------+ + + + + + | Alcohol Habits | Answer | Date Recorded | + + + + | How often do you have a drink containing | Never | 06/25/2018 | | alcohol? | | | + + + + | How many drinks containing alcohol do you | Not asked | | | have on a typical day when you are | | | | drinking? | | | + + + + | How often do you have six or more drinks on | Never | 06/25/2018 | | one occasion? | | | + + + + + + + | Sex Assigned [...] [place] | | | | | | [address] | | | | | | | | +--------+---------+ + + + documented as of this encounter Visit Diagnoses Not on filedocumented in this encounter"
--- OUTSIDE RECORDS SUMMARY | ~2019-02-27 | XMS | Clinical Summary ---
Demographics + + + | Address | [address] | | | [place] [address] | + + + | Home Phone | | + + + | Preferred Language | Unknown | + + + | Marital Status | | + + + | Hindu Affiliation | 1077 | + + + | Race | Unknown | + + + | Ethnic Group | Unknown | + + + Author + + + | Author | [facility] | | | and [place] | + + + | Organization | [facility] | | | and [place] | + + + | Address | Unknown | + + + | Phone | Unavailable | + + + Support + + + + + | Name | Relationship | Address | Phone | + + + + + | Aarti Hooks | ECON | [address] | | | | | [place] | | | | | [address] | | + + + + + Care Team Providers + +------+ + | Care Ultrasound Applications Specialist Name | Role | Phone | + +------+ + | Raul Pate DO | PCP | | + +------+ + Allergies + + + + + + | Active Allergy | Reactions | Severity | Noted | Comments | | | | | Date | | + + + + + + | Codeine | Nausea Only | Low | 05/16/19 | Upset stomach | | | | | 12 | | + + + + + + | Penicillins | Hives, Rash | High | 05/16/19 | | | | | | 12 | | + + + + + + Medications + + + +---------+------+------+-------+ | Medication | Sig | Dispensed | Refills | Star | End | Statu | | | | | | t | Date | s | | | | | | Date | | | + + + +---------+------+------+-------+ | finasteride | | | 0 | 11/3 | | Activ | | (PROSCAR) 5 mg | | | | 0/20 | | e | | tablet | | | | 15 | | | + + + +---------+------+------+-------+ | tamsulosin | 0.4 mg Daily. | | 0 | 12/0 | | Activ | | (FLOMAX) 0.4 mg CAPS | | | | 3/20 | | e | | | | | | 15 | | | + + + +---------+------+------+-------+ | MULTIPLE | Take by mouth. | | 0 | | | Activ | | VITAMINS-MINERALS PO | | | | | | e | + + + +---------+------+------+-------+ | Glucosamine 500 MG | Take by mouth | | 0 | | | Activ | | CAPS | Daily. | | | | | e | + + + +---------+------+------+-------+ | meloxicam (MOBIC) | Take 1 tablet by | 30 | 3 | 08/1 | | Activ | | 15 mg tablet | mouth Daily as | tablet | | 4/20 | | e | | | needed for Pain. | | | 19 | | | + + + +---------+------+------+-------+ | atenolol | Take 1 tablet by | 90 | 3 | 11/0 | | Activ | | (TENORMIN) 50 mg | mouth Daily. | tablet | | 4/20 | | e | | tablet | | | | 19 | | | + + + +---------+------+------+-------+ | pseudoePHEDrine | take 1 tablet by | 90 | 1 | 11/1 | | Activ | | (SUDOGEST) 30 mg | mouth every 6 hours | tablet | | 2/20 | | e | | tablet | if needed for | | | 19 | | | | | congestion | | | | | | + + + +---------+------+------+-------+ | diphenhydrAMINE | Take by mouth | | 0 | | | Activ | | HCl (ALLERGY MED PO) | Daily. | | | | | e | + + + +---------+------+------+-------+ | gabapentin | Take 1 capsule by | 30 | 4 | 12/2 | | Activ | | (NEURONTIN) 100 mg | mouth At Bedtime. | capsule | | 6/20 | | e | | capsuleIndications: | | | | 19 | | | | Acute pain of right | | | | | | | | wrist | | | | | | | + + + +---------+------+------+-------+ | | Take 1 tablet by | 20 | 0 | 04/2 | 12/2 | Disco | | sulfamethoxazole-tri | mouth 2 times daily. | tablet | | /20 | 6/20 | ntinu | | methoprim (BACTRIM | | | | 19 | 19 | ed | | DS) 800-160 mg per | | | | | | (Ther | | tabletIndications: | | | | | | apy | | Cellulitis of left | | | | | | compl | | lower limb | | | | | | eted) | + + + +---------+------+------+-------+ Active Problems + + + | Problem | Noted Date | + + + | Cardiac arrest | 07/30/2017 | + + + | ICD (implantable cardioverter-defibrillator) in place | 08/01/2016 | + + + | Heme positive stool | 02/21/2015 | + + + | Hx of drug abuse | 02/21/2015 | + + + | Long Q-T syndrome | 01/06/2015 | + + + + -+ | Overview: Overview: Overview: Genetic testing negative.Last | | Assessment & Plan: No recurrent events on atenolol. Continue | | atenolol. Recommended family screening with EKGs. | | | |Last Assessment & Plan: | |No recurrent events on atenolol. Continue atenolol. Recommended family screening with EKGs. | + -+ + + + | Presence of single chamber automatic cardioverter/defibrillator | 12/17/2012 | | (JEAN) | | + + + + + | Overview: Overview: Overview: MANUELA single chamber initial | | implant 1998. Now on 3rd device (2007).[employer] [facility] [employer] 1357-40C | | Mame Aranda 01/23/2015Last Assessment & Plan: Device at [facility]. | | Gen change scheduled for 01/[address] Askew. Full PARQ held. | |Last Assessment & Plan: | |Device at [facility]. Gen change scheduled for 01/[address] Askew. Full PARQ held. | + + + +---+ | Sinusitis | | + +---+ | Allergic rhinitis | | + +---+ | Hemorrhoids | | + +---+ Resolved Problems + + + + | Problem | Noted | Resolved | | | Date | Date | + + + + | Preventative health care | 02/22/20 | | | | 15 | 9 | + + + + | H/O cardiac arrest | 12/18/19 | | | | 13 | 9 | + + + + Encounters +--------+ + + + + | Date | Type | Specialty | Care Team | Description | +--------+ + + + + | 02/25/ | Hospital | Radiology | Raul Pate | Acute pain of right | | 2018 | Encounter | | E, DO | wrist | +--------+ + + + + | 02/25/ | Office | Primary Care | Robert, | Acute pain of right | | 2018 | Visit | | ANDREW Camacho, | wrist (Primary Dx); | | | | | Raul Longoria DO | Need for influenza | | | | | | vaccination | +--------+ + + + + | 02/25/ | Telephone | Primary Care | Raul Pate | Imaging | | 2018 | | | E, DO | | +--------+ + + + + | 02/10/ | Procedure | Cardiology | | Presence of single | | 2018 | visit | | | chamber automatic | | | | | | cardioverter/defibri | | | | | | llator (JEAN) | +--------+ + + + + | 01/12/ | Refill | Primary Care | Raul Pate | Medication Refill | | 2018 | | | E, DO | | +--------+ + + + + | 01/05/ | Telephone | Cardiology | Toni Durand, | Device Check | | 2019 | | | MD | | +--------+ + + + + | 01/04/ | Refill | Primary Care | Brittney Choe, | Insulin Syringe | | 2019 | | | CC CONSTRUCTION CONSULTANT | Pre-fill | +--------+ + + + + from Last 3 Months Immunizations + + + + | Name | Administration Dates | Next Due | + + + + | HEP A/HEP B, 3 DOSE | 10/30/2009, 04/03/2009, 02/17/2009 | | | (ADULT) | | | + + + + | INFLUENZA PF | 02/25/2019, 12/23/2015 | | | QUAD(PED/ADOL/ADULT) | | | | ,PSKT or VIAL | | | + + + + | INFLUENZA, B2H7-06, | 02/17/2009 | | | LIVE ATTENUATED | | | + + + + | TDAP, (ADOL/ADULT) | 02/17/2009 | | + + + + | TDAP, UNSPECIFIED | 03/03/2009 | | | FORMULATION | | | + + + + | TYPHOID, VICPS | 02/17/2009 | | + + + + Family History + + + + + | Medical History | Relation | Name | Comments | + + + + + | Other (see comment) | Father | | MVA | + + + + + | Prostate cancer | Other | x3 | | | | | Maternal | | | | | uncle | | + + + + + + + + + + | Relation | Name | Status | Comments | + + + + + | Father | | | | + + + + + | Other | x3 | | | | | Maternal | | | | | uncle | | | + + + + + Social History + + + +--------+ + | Tobacco Use | Types | Packs/Day | Years | Date | | | | | Used | | + + + +--------+ + | Former Smoker | Cigarettes | 1 | 20 | 1979 - 2000 | + + + +--------+ + + +------+---+--------+ | Smokeless Tobacco: | Chew | | Quit: | | Former User | | | 1981 | + +------+---+--------+ + + | Tobacco Cessation: Counseling Given: No | + + + + +---------+ + | Alcohol Use [...] recent travel history available. | + + Last Filed Vital Signs + + + + + | Vital Sign | Reading | Time Taken | Comments | + + + + + | Blood Pressure | 118/64 | 02/25/2019 3:00 PM | LEFt arm, adult cuff | | | | PST | | + + + + + | Pulse | 71 | 02/25/2019 3:00 PM | | | | | PST | | + + + + + | Temperature | 36.4 C (97.6 F) | 06/25/2018 8:23 AM | | | | | PDT | | + + + + + | Respiratory Rate | 18 | 02/25/2019 3:00 PM | | | | | PST | | + + + + + | Oxygen Saturation | 94% | 02/25/2019 3:00 PM | | | | | PST | | + + + + + | Inhaled Oxygen | - | - | | | Concentration | | | | + + + + + | Weight | 100.9 kg (222 lb 6.4 | 02/25/2019 3:00 PM | | | | oz) | PST | | + + + + + | Height | 172.7 cm (5' 8") | 02/25/2019 3:00 PM | | | | | PST | | + + + + + | Body Mass Index | 33.82 | 02/25/2019 3:00 PM | | | | | PST | | + + + + + Plan of Treatment +--------+---------+ + + + | Date | Type | Specialty | Care Team | Description | +--------+---------+ + + + | 09/21/ | Office | Cardiology | Toni Durand, | | | 2020 | Visit | | MD Jesus RUGGIERO | | | | | | [place] | | | | | | [phone] | | | | | | | | +--------+---------+ + + + + + + + + | Health Maintenance | Due Date | Last Done | Comments | + + + + + | Hepatitis C | | | | | Screening | 1 | | | + + + + + | Vaccine: Zoster (1 | | | | | of 2) | 1 | | | + + + + + | Vaccine: | | 03/03/2009, 02/17/2009 | | | Dtap/Tdap/Td (3 - | 0 | | | | Td) | | | | + + + + + | Primary Care | | 02/25/2019, 06/25/2018, | | | Outreach (Moderate | 0 | 05/27/2018, Additional history | | | Risk) | | exists | | + + + + + | Colorectal Cancer | | 02/22/2015, 02/22/2015 | | | Screening | 5 | | | | (Colonoscopy) | | | | + + + + + | Vaccine: Influenza | Completed | 02/25/2019, 12/23/2015, | | | | | 02/17/2009 | | + + + + + Procedures + +--------+ + + + | Procedure Name | Priori | Date/Time | Associated Diagnosis | Comments | | | ty | | | | + +--------+ + + + | XR WRIST RIGHT 3 + | Routin | 02/25/2019 | Acute pain of | Results for this | | VW | e | 4:03 PM | right wrist | procedure are in the | | | | PST | | results section. | + +--------+ + + + | DEVICE INTERROGATION | Routin | 02/18/2019 | Presence of single | Results for this | | | e | 12:00 AM | chamber automatic | procedure are in the | | | | PST | cardioverter/defibri | results section. | | | | | llator (AICD) | | + +--------+ + + + from Last 3 Months Results XR Wrist Right 3 + Vw (02/25/2019 4:03 PM PST) + + | Specimen | + + | | + + + + + | Impressions | Performed At | + + + | 1. No acute finding. 2. Surgical hardware present at the distal | [facility] | | volar radius. 3. Mild ulnar positive variance. Dictated by: | | | Desmond Romero Electronically Signed by: Desmond Romero on | | | 02/25/2019 4:35 PM | | + + + + + + | Narrative | Performed At | + + + | EXAMINATION: XR WRIST RIGHT 3 + VW HISTORY: right wrist pain | [facility] | | with presence of hardware COMPARISON STUDY: None | | | TECHNIQUE: 4 view. FINDINGS: Anterior fusion plate attached with | | | multiple screws is present at the distal volar radius. No fracture | | | identified. No angular deformity evident on lateral projection. | | | The joint spaces demonstrate no distinct degenerative change, | | | approximate 2 mm ulnar positive variance present. If concern for | | | acute fracture remains clinically follow-up images in 10 to 14 days | | | recommended. . | | + + + + + | Procedure Note | + + | Asael, Rad Results In - 02/25/2019 4:39 PM PST EXAMINATION:XR WRIST RIGHT 3 + | | VWHISTORY:right wrist pain with presence of hardwareCOMPARISON STUDY:NoneTECHNIQUE:4 | | view.FINDINGS:Anterior fusion plate attached with multiple screws is present at the | | distal volar radius. No fracture identified. No angular deformity evident on lateral | | projection. The joint spaces demonstrate no distinct degenerative change, approximate 2 | | mm ulnar positive variance present.If concern for acute fracture remains clinically | | follow-up images in 10 to 14 days recommended. .IMPRESSION: 1. No acute finding.2. | | Surgical hardware present at the distal volar radius.3. Mild ulnar positive | | variance.Dictated by: Desmond Romero | | 4:35 PM | | | |TECHNIQUE: | |4 view. | | | |FINDINGS: | |Anterior fusion plate attached with multiple screws is present at the distal volar radius. No fracture identified. No angular deformity evident on lateral projection. The joint spa devon demonstrate no distinct | |degenerative change, approximate 2 mm ulnar | | positive variance present. | |If concern for acute fracture remains clinically follow-up images in 10 to 14 days recommen ded. . | | | |IMPRESSION: | |1. No acute finding. | |2. Surgical hardware present at the distal volar radius. | |3. Mild ulnar positive variance. | | | | | |Dictated by: Desmond Romero | | | | | + + + +---------+ + + | Performing | Address | City/State/Zipcode | Phone Number | | Organization | | | | + +---------+ + + | [facility] | | | | + +---------+ + + Device Interrogation (02/18/2019 12:00 AM PST) + + + | Narrative | Performed At | + + + | Sam Lugo | DEBI | | NIKITA Salinas 02/18/2019 9:30 AMICD INTERROGATION REPORT Name: | | | Adis Hooks PCP: Raul Pate DO : 1960MRN: | | | [id number] Primary cardiology provider: Toni Retanacatron Primary | | | electrophysiology provider: None Device podiatric aide: [employer] | | | Device type: Single chamber (Ventricular) Battery Longevity: 5.1 | | | years. INTERROGATION RESULTS:Please see the full interrogation report | | | attached RV Pacing: <1% Lead function: Lead impedance and threshold | | | value trends have been reviewed and are are acceptable based on most | | | recent evaluation. RV Threshold: 1.0V @ 0.5ms RV Amplitude: 9.3mV | | | Known history of atrial flutter or atrial fibrillation: No Current | | | antithrombotic therapy including: N/A Mode switches: No atrial lead | | | present. VT/VF Detections: None. Programming changes: Temporary | | | programming changes were made for testing and restored to original | | | values. No permanent changes were made. Pacemaker dependent: No | | | Mode of interrogation: Seen in cardiac device clinic Follow up: The | | | next scheduled interrogation will be in 3 months in the cardiac device | | | clinic. Additional comments: None. IMPRESSION:1. Normal ICD | | | function.2. No atrial lead.3. No VT/VF therapies have been given since | | | the last interrogation. Testing performed by: Sam Salinas RN | | |RV Pacing: <1% | | | | | |Lead function: Lead impedance and threshold value trends have | | |been reviewed and are are acceptable based on most recent | | |evaluation. | | | | | |RV Threshold: 1.0V @ 0.5ms | | | | | |RV Amplitude: 9.3mV | | | | | |Known history of atrial flutter or atrial fibrillation: No | | |Current antithrombotic therapy including: N/A | | | | | |Mode switches: No atrial lead present. | | | | | |VT/VF Detections: None. | | | | | |Programming changes: Temporary programming changes were made for | | |testing and restored to original values. No permanent changes | | |were made. | | | | | |Pacemaker dependent: No | | | | | |Mode of interrogation: Seen in cardiac device clinic | | | | | |Follow up: The next scheduled interrogation will be in 3 months | | |in the cardiac device clinic. | | | | | |Additional comments: None. | | | | | |IMPRESSION: | | |1. Normal ICD function. | | |2. No atrial lead. | | |3. No VT/VF therapies have been given since the last | | |interrogation. | | | | | |Testing performed by: Sam Salinas RN | | + + + + + | Procedure Note | + + | Sam Salinas RN - 02/10/2019 10:00 AM PST Formatting of this note might be | | different from the original.ICD INTERROGATION REPORT Name: Adis Martinez Neva PCP: Raul | | Gio DO Herlinda : 1960MRN: [id number] Primary cardiology provider: Toni | | [facility] Primary electrophysiology provider: Polly Device podiatric aide: [employer] | | type: Single chamber (Ventricular)Battery Longevity: 5.1 years.INTERROGATION | | RESULTS:Please see the full interrogation report attached RV Pacing: <1%Lead function: | | Lead impedance and threshold value trends have been reviewed and are are acceptable | | based on most recent evaluation.RV Threshold: 1.0V @ 0.5ms RV Amplitude: 9.3mVKnown | | history of atrial flutter or atrial fibrillation: No Current antithrombotic therapy | | including: N/AMode switches: No atrial lead present.VT/VF Detections: None.Programming | | changes: Temporary programming changes were made for testing and restored to original | | values. No permanent changes were made. Pacemaker dependent: No Mode of | | interrogation: Seen in cardiac device clinicFollow up: The next scheduled interrogation | | will be in 3 months in the cardiac device clinic. Additional comments: | | None.IMPRESSION:1. Normal ICD function.2. No atrial lead.3. No VT/VF therapies have been | | given since the last interrogation.Testing performed by: Sam Salinas RN | | | |INTERROGATION RESULTS: | |Please see the full interrogation report attached | | | |RV Pacing: <1% | | | |Lead function: Lead impedance and threshold value trends have been reviewed and are are acc eptable based on most recent evaluation. | | | |RV Threshold: 1.0V @ 0.5ms | | | |RV Amplitude: 9.3mV | | | |Known history of atrial flutter or atrial fibrillation: No | |Current antithrombotic therapy including: N/A | | | |Mode switches: No atrial lead present. | | | |VT/VF Detections: None. | | | |Programming changes: Temporary programming changes were made for testing and restored to or iginal values. No permanent changes were made. | | | |Pacemaker dependent: No | | | |Mode of interrogation: Seen in cardiac device clinic | | | |Follow up: The next scheduled interrogation will be in 3 months in the cardiac device clini c. | | | |Additional comments: None. | | | |IMPRESSION: | |1. Normal ICD function. | |2. No atrial lead. | |3. No VT/VF therapies have been given since the last interrogation. | | | |Testing performed by: Sam Salinas RN | + + + +---------+ + + | Performing | Address | City/State/Zipcode | Phone Number | | Organization | | | | + +---------+ + + | [facility] | | | | + +---------+ + + from Last 3 Months Insurance + +--------+ +--------+ +---------+--------+ | Payer | Benefi | Subscriber | Effect | Phone | Address | Type | | | t Plan | ID | gerald | | | | | | / | | Dates | | | | | | Group | | | | | | + +--------+ +--------+ +---------+--------+ | [employer] | PACIFI | [id number] | | [phone] | | PPO | | | [employer] | | 019-Pr | 2 | | | | | E | | esent | | | | | | FIRST | | | | | | | | CHOICE | | | | | | + +--------+ +--------+ +---------+--------+ | [employer] | PACIFI | [id number] | | [phone] | | Indemn | | | [employer] | | 019-Pr | 2 | | ity | | | E | | esent | | | | | | ADMIN | | | | | | | | PREF | | | | | | | | PSN | | | | | | + +--------+ +--------+ +---------+--------+ + +--------+ +--------+ + + | Guarantor Name | Accoun | Relation to | Date | Phone | Billing Address | | | t Type | Patient | of | | | | | | | | | | + +--------+ +--------+ + + | Adis Hooks | Person | Self [birth year] | [address] | | | al/Lee | | 1961 | [phone] | [place] | | | [place] | | | 5 (Home) | [address] | | | | | | [phone] | | | | | | | 9 (Work) | | + +--------+ +--------+ + + | Adis Hooks Phillip | Person | Self | [birth year] | | [address] | | | al/Fam | | 1961 | [phone] | [place], [place] | | | [place] | | | 5 (Home) | [address] | | | | | | [phone] | | | | | | | 9 (Work) | | + +--------+ +--------+ + + | Adis Hooks Otis | Person | Self | [birth year] | | [address] | | | al/Fam | | 1961 | [phone] | [place], [place] | | | [place] | | | 5 (Home) | [address] | | | | | | [phone] | | | | | | | 9 (Work) | | + +--------+ +--------+ + + Advance Directives + + + + + | Type | Date Recorded | Patient | Explanation | | | | Tie Puller | | + + + + + | Power of | | | | | District Sales Coordinator | | | | + + + + + | Advance | 02/25/2019 | | | | Directive | 1:22 PM | | | + + + + +
--- OUTSIDE RECORDS SUMMARY | ~2019-02-27 | XMS | Encounter Summary ---
Demographics + + + | Address | [address] | | | [place] [address] | + + + | Home Phone | | + + + | Preferred Language | Unknown | + + + | Marital Status | | + + + | Mu-Ism Affiliation | 1077 | + + + | Race | Unknown | + + + | Ethnic Group | Unknown | + + + Author + + + | Author | [facility] | | | and [place] | + + + | Organization | [facility] | | | and [place] | + + + | Address | Unknown | + + + | Phone | Unavailable | + + + Support + + + + + | Name | Relationship | Address | Phone | + + + + + | Aarti Hooks | ECON | [address] | | | | | [place] | | | | | [address] | | + + + + + Care Team Providers + +------+ + | Care Well Driller Helper Name | Role | Phone | + +------+ + | Raul Pate DO | PCP | | + +------+ + Encounter Details +--------+ + + + + | Date | Type | Department | Care Team | Description | +--------+ + + + + | 10/13/ | Abstract | [facility] | Raul Pate | | | 2018 | | [facility] | E, DO [address] | | | | | [facility] [address] | [place], [place] | | | | [address] [place], | [address] | | | | | [place] [address] | [phone] | | | | | [phone] | | | +--------+ + + + [...] | +--------+---------+ + + + | 09/21/ Office | Cardiology | Toni Durand, | | | 2019 | Visit | | MD Jesus RUGGIERO | | | | | | [place] | | | | | | [address] | | | | | | | | +--------+---------+ + + + documented as of this encounter Procedures + +--------+ + + + | Procedure Name | Priori | Date/Time | Associated Diagnosis | Comments | | | ty | | | | + +--------+ + + + | EXTERNAL LAB: [facility], | Routin | 03/20/2016 | | Results for this | | SCREEN | e | | | procedure are in the | | | | | | results section. | + +--------+ + + + documented in this encounter Results External Lab: PSA, Screen (03/20/2016) + +-------+ + + + | Component | Value | Ref Range | Performed | Pathologist | | | | | At | Signature | + +-------+ + + + | PSA, | 1.02 | | | | | External | | | | | + +-------+ + + + + + | Specimen | + + | Blood | + + documented in this encounter Visit Diagnoses Not on filedocumented in this encounter"
--- OUTSIDE RECORDS SUMMARY | ~2019-02-27 | XMS | Encounter Summary ---
Demographics + + + | Address | [address] | | | [place] [address] | + + + | Home Phone | | + + + | Preferred Language | Unknown | + + + | Marital Status | | + + + | Confucianist Affiliation | 1077 | + + + | Race | Unknown | + + + | Ethnic Group | Unknown | + + + Author + + + | Author | [facility] | | | and [place] | + + + | Organization | [facility] | | | and [place] | + + + | Address | Unknown | + + + | Phone | Unavailable | + + + Support + + + + + | Name | Relationship | Address | Phone | + + + + + | Aarti Hooks | ECON | [address] | | | | | [place] | | | | | [address] | | + + + + + Care Team Providers + +------+ + | Care Graduation Coach Name | Role | Phone | + [...] Description | +--------+--------+ + + + | 01/05/ | Refill | [facility] | Chaya Mccrary, CC | Medication Refill | | 2017 | | [facility] | [facility] | | | | | MEDICAL CLIN[facility] [address] | | | | | | [address] [facility], | | | | | | [place] [address] | | | | | | [phone] | | | +--------+--------+ + + + [...] [place] | | | | | | [address] | | | | | | | | +--------+---------+ + + + documented as of this encounter Visit Diagnoses Not on filedocumented in this encounter"
--- OUTSIDE RECORDS SUMMARY | ~2019-02-27 | XMS | Encounter Summary ---
Demographics + + + | Address | [address] | | | [place] [address] | + + + | Home Phone | | + + + | Preferred Language | Unknown | + + + | Marital Status | | + + + | Restorationist Affiliation | 1077 | + + + | Race | Unknown | + + + | Ethnic Group | Unknown | + + + Author + + + | Author | [facility] | | | and [place] | + + + | Organization | [facility] | | | and [place] | + + + | Address | Unknown | + + + | Phone | Unavailable | + + + Support + + + + + | Name | Relationship | Address | Phone | + + + + + | Aarti Hooks | ECON | [address] | | | | | [place] | | | | | [address] | | + + + + + Care Team Providers + +------+ + | Care Suction Plate Roller Hand Name | Role | Phone | + +------+ + | Raul Pate DO | PCP | | + +------+ + Reason for Visit + + + | Reason | Comments | + + + | Follow-up | Cellulitis, left leg | + + + Encounter Details +--------+---------+ + + + | Date | Type | Department | Care Team | Description | +--------+---------+ + + + | 06/25/ | Office | [facility] | Raul Pate | Cellulitis of left | | 2019 | Visit | [facility] | E, DO [address] | lower limb (Primary | | | | MEDICAL [facility] [address] | [place], [place] | Dx); Rash | | | | [address] [place], | [address] | | | | | [place] [address] | [phone] | | | | | [phone] | | | +--------+---------+ + + + Social History + + [...] + + + | Blood Pressure | 138/82 | 06/25/2018 8:23 AM | Med cuff, right arm | | | | PDT | | + + + + + | Pulse | 65 | 06/25/2018 8:23 AM | Reg | | | | PDT | | + + + + + | Temperature | 36.4 C (97.6 F) | 06/25/2018 8:23 AM | | | | | PDT | | + + + + + | Respiratory Rate | 16 | 06/25/2018 8:23 AM | | | | | PDT | | + + + + + | Oxygen Saturation | 97% | 06/25/2018 8:23 AM | RA | | | | PDT | | + + + + + | Inhaled Oxygen | - | - | | | Concentration | | | | + + + + + | Weight | 99.2 kg (218 lb 12.8 | 06/25/2018 8:23 AM | | | | oz) | PDT | | + + + + + | Height | 172.7 cm (5' 8") | 06/25/2018 8:23 AM | Stated | | | | PDT | | + + + + + | Body Mass Index | 33.27 | 06/25/2018 8:23 AM | | | | | PDT | | + + + + + documented in this encounter Patient Instructions Patient Instructions Charlie John - 06/25/2018 8:40 AM PDT-Start Bactrim 800-160 mg BID for 10 days -Apply Betamethasone dipropionate 0.05% cream as directed -Use Meloxicam 15 mg daily PRN documented in this encounter Progress Notes Raul Pate DO - 06/25/2018 8:40 AM PDT Patient ID: Adis Hooks is a 57 y.o. year old male Chief Complaint Patient presents with Follow-up Cellulitis, left leg Assessment: Cellulitis of left lower limb (Primary) - Betamethasone Dipropionate; Apply thin film to affected area(s) once or twice daily f or up to 2 weeks: avoid face and groin areas Dispense: 45 g; Refill: 0 - Sulfamethoxazole-Trimethoprim; Take 1 tablet by mouth 2 times daily. Dispense: 20 ta blet; Refill: 0 Rash Other orders - Meloxicam; Take 1 tablet by mouth Daily as needed for Pain. Dispense: 30 tablet; Ref ill: 3 Plan: -Start Bactrim 800-160 mg BID for 10 days -Apply Betamethasone dipropionate 0.05% cream as directed -Use Meloxicam 15 mg daily PRN Subjective: JOYA Arceo presents to the clinic today for a follow up regarding left leg cellulitis. While he was hunting last fall he bumped his chin. Since then the chin got better but it is still getting warm to touch and very itchy. He also felt tired. He was put on Bactrim 800-1 00mg, that he completed he started feeling better energy salomon after completion, but the rash has not changed much. He requested Meloxicam refill. Current Outpatient Medications Medication Sig Dispense Refill atenolol (TENORMIN) 50 mg tablet Take 1 tablet by mouth Daily. 90 tablet 3 finasteride (PROSCAR) 5 mg tablet 0 Glucosamine 500 MG CAPS Take by mouth Daily. MULTIPLE VITAMINS-MINERALS PO Take by mouth. pseudoePHEDrine (SUDOGEST) 30 mg tablet take 1 tablet by mouth every 6 hours if needed for congestion 90 tablet 1 tamsulosin (FLOMAX) 0.4 mg CAPS 0 No current facility-administered medications for this visit. Review of Systems Skin: Cellulitis left leg, that itchy and warm to touch, also red after showering Objective: Vitals: BP 138/82 Comment: Med cuff, right arm | Pulse 65 Comment: Reg | Temp 36.4 C (97.6 F) ( Oral) | Resp 16 | Ht 1.727 m (5' 8") Comment: Stated | Wt 99.2 kg (218 lb 12.8 oz) | SpO2 97% Comment: RA | BMI 33.27 kg/m Physical Exam Constitutional: He is oriented to person, place, and time. He appears well-developed and we ll-nourished. No distress. Eyes: EOM are normal. Pulmonary/Chest: Effort normal. Neurological: He is alert and oriented to person, place, and time. Skin: Left chin has a 9x6 cm macular, erythema, excoriated lesion. Psychiatric: He has a normal mood and affect. Entered by Charlie John [facility], acting as scribe for Adrián Pate D.O. The documentation recorded by the scribe accurately reflects the service I personally perfo ed and the decisions made by me. documented in this encounter Plan of Treatment +--------+---------+ + + + | Date | Type | Specialty | Care Team | Description | +--------+---------+ + + + | 09/21/ | Office | Cardiology | Toni Durand, | | | 2019 | Visit | | MD Jesus RUGGIERO | | | | | | [place] | | | | | | [address] | | | | | | | | +--------+---------+ + + + documented as of this encounter Visit Diagnoses + + | Diagnosis | + + | Cellulitis of left lower limb - Primary | + + | Rash Rash and other nonspecific skin eruption | + + documented in this encounter
--- OUTSIDE RECORDS SUMMARY | ~2019-02-27 | XMS | Encounter Summary ---
Demographics + + + | Address | [address] | | | [place] [address] | + + + | Home Phone | | + + + | Preferred Language | Unknown | + + + | Marital Status | | + + + | Mosque Affiliation | 1077 | + + + | Race | Unknown | + + + | Ethnic Group | Unknown | + + + Author + + + | Author | [facility] | | | and [place] | + + + | Organization | [facility] | | | and [place] | + + + | Address | Unknown | + + + | Phone | Unavailable | + + + Support + + + + + | Name | Relationship | Address | Phone | + + + + + | Aarti Hooks | ECON | [address] | | | | | [place] | | | | | [address] | | + + + + + Care Team Providers + +------+ + | Care Pipe Line Gauger Name | Role | Phone | + [...] Description | +--------+--------+ + + + | 01/12/ | Refill | [facility] | Raul Pate | Medication Refill | | 2018 | | [facility] | E, DO [address] | | | | | MEDICAL CLIN[facility] [address] | [place], [place] | | | | [address] [place], | [address] | | | | | [place] [address] | [phone] | | | | | [phone] | | | +--------+--------+ + + + Social History + + + +--------+ + | Tobacco Use | Types | Packs/Day | Years | Date | | | | | Used | | + + + +--------+ + | Former Smoker | Cigarettes | 1 | 20 | 1979 | + + + +--------+ + + [...] [place] | | | | | | [address] | | | | | | | | +--------+---------+ + + + documented as of this encounter Visit Diagnoses Not on filedocumented in this encounter"
--- OUTSIDE RECORDS SUMMARY | ~2019-02-27 | XMS | Encounter Summary ---
Demographics + + + | Address | [address] | | | [place] [address] | + + + | Home Phone | | + + + | Preferred Language | Unknown | + + + | Marital Status | | + + + | Sikh Affiliation | 1077 | + + + | Race | Unknown | + + + | Ethnic Group | Unknown | + + + Author + + + | Author | [facility] | | | and [place] | + + + | Organization | [facility] | | | and [place] | + + + | Address | Unknown | + + + | Phone | Unavailable | + + + Support + + + + + | Name | Relationship | Address | Phone | + + + + + | Aarti Hooks | ECON | [address] | | | | | [place] | | | | | [address] | | + + + + + Care Team Providers + +------+ + | Care Svp Digital Sales Name | Role | Phone | + +------+ + | Raul Pate DO | PCP | | + +------+ + Reason for Visit + + + | Reason | Comments | + + + | Medication Refill | | + + + | Medication Refill | | + + + Encounter Details +--------+--------+ + + + | Date | Type | Department | Care Team | Description | +--------+--------+ + + + | 11/06/ | Refill | [facility] | Raul Pate | Medication Refill; | | 2018 | | [facility] | E, DO [address] | Medication Refill | | | | MEDICAL CLIN[facility] [address] | [place], [place] | | | | [address] [facility], | [address] | | | | | [place] [address] | [phone] | | | | | [phone] | | | +--------+--------+ + + + [...] [place] | | | | | | [address] | | | | | | | | +--------+---------+ + + + documented as of this encounter Visit Diagnoses Not on filedocumented in this encounter"
--- OUTSIDE RECORDS SUMMARY | ~2019-02-27 | XMS | Encounter Summary ---
Demographics + + + | Address | [address] | | | [place] [address] | + + + | Home Phone | | + + + | Preferred Language | Unknown | + + + | Marital Status | | + + + | Muslim Affiliation | 1077 | + + + | Race | Unknown | + + + | Ethnic Group | Unknown | + + + Author + + + | Author | [facility] | | | and [place] | + + + | Organization | [facility] | | | and [place] | + + + | Address | Unknown | + + + | Phone | Unavailable | + + + Support + + + + + | Name | Relationship | Address | Phone | + + + + + | Aarti Hooks | ECON | [address] | | | | | [place] | | | | | [address] | | + + + + + Care Team Providers + +------+ + | Care Electric Engine Mechanic Name | Role | Phone | + +------+ + | Raul Pate DO | PCP | | + +------+ + Reason for Visit + + + | Reason | Comments | + + + | Device Check | | | (In-office) | | + + + Encounter Details +--------+ + + + + | Date | Type | Department | Care Team | Description | +--------+ + + + + | 11/04/ | Procedure | [facility] | | Presence of single | | 2019 | visit | CARDIOLOGY [place] | | chamber automatic | | | | [address] | | cardioverter/defibri | | | | [address] | | llator (AICD) | | | | [place], [place] | | (Primary Dx) | | | | [address] | | | | | | [phone] | | | +--------+ + + + + Social History + + + +--------+ + | Tobacco Use | Types | Packs/Day | Years | Date | | | | | Used | | + + + +--------+ + | Former Smoker | Cigarettes | 1 | 20 | 1979 - 1999 | + + + +--------+ [...] | | | | | | [place] | | | | | | [address] | | | | | | | | +--------+---------+ + + + documented as of this encounter Procedures + +--------+ + + + | Procedure Name | Priori | Date/Time | Associated Diagnosis | Comments | | | ty | | | | + +--------+ + + + | DEVICE INTERROGATION | Routin | 11/04/2018 | Presence of single | Results for this | | | e | 3:00 PM | chamber automatic | procedure are in the | | | | PDT | cardioverter/defibri | results section. | | | | | llator (AICD) | | + +--------+ + + + documented in this encounter Results Device Interrogation (11/04/2018 3:00 PM PDT) + + + | Narrative | Performed At | + + + | [facility] | [facility] | | N[place] 11/05/2018 16:23ICD INTERROGATION REPORT Name: [facility] | | | [address] PCP: Raul Pate DO : 1960MRN: [id number] | | | Primary cardiology provider: Toni [place]and Primary | | | electrophysiology provider: None Device peer support specialist: [employer] | | | Device type: Single chamber (Ventricular) Battery Longevity: 5.2 | | | years. INTERROGATION RESULTS:Please see the full interrogation report | | | attached RV Pacing: <1% Lead function: Lead impedance and threshold | | | value trends have been reviewed and are are acceptable based on most | | | recent evaluation. RV Threshold: 1.0V @ 0.5ms RV Amplitude: 9.1mV | | | Known history of atrial flutter or atrial fibrillation: No Current | | | antithrombotic therapy including: N/A Mode switches: No atrial lead | | | present. VT/VF Detections: 2 SVT events noted:10/29/18 at 1950, lasted | | | 33 seconds with ventricular rate of 171 bpm, and EGM was | | | provided10/17/18 at 2043, lasted 55 seconds with ventricular rate of | | | 173 bpm, and EGM was provided Programming changes: Temporary | | | programming [...] | the last interrogation. Testing performed by: Nohemi Blair | | |been reviewed and are are acceptable based on most recent | | |evaluation. | | | | | |RV Threshold: 1.0V @ 0.5ms | | | | | |RV Amplitude: 9.1mV | | | | | |Known history of atrial flutter or atrial fibrillation: No | | |Current antithrombotic therapy including: N/A | | | | | |Mode switches: No atrial lead present. | | | | | |VT/VF Detections: | | |2 SVT events noted: | | |10/29/18 at 1950, lasted 33 seconds with ventricular rate of 171 | | |bpm, and EGM was provided | | |10/17/18 at 2043, lasted 55 seconds with ventricular rate of 173 | | |bpm, and EGM was provided | | | | | |Programming changes: [...] | | | | |Testing performed by: Nohemi Blair | | + + + + +---------+ + + | Performing | Address | City/State/Zipcode | Phone Number | | Organization | | | | + +---------+ + + | [facility] | | | | + +---------+ + + documented in this encounter Visit Diagnoses + + | Diagnosis | + + | Presence of single chamber automatic cardioverter/defibrillator (AICD) - Primary | | Automatic implantable cardiac defibrillator in situ | + + documented in this encounter"
--- OUTSIDE RECORDS SUMMARY | ~2019-02-27 | XMS | Encounter Summary ---
Demographics + + + | Address | [address] | | | [place] [address] | + + + | Home Phone | | + + + | Preferred Language | Unknown | + + + | Marital Status | | + + + | Muslim Affiliation | 1077 | + + + | Race | Unknown | + + + | Ethnic Group | Unknown | + + + Author + + + | Author | [facility] | | | and [place] | + + + | Organization | [facility] | | | and [place] | + + + | Address | Unknown | + + + | Phone | Unavailable | + + + Support + + + + + | Name | Relationship | Address | Phone | + + + + + | Aarti Hooks | ECON | [address] | | | | | [place] | | | | | [address] | | + + + + + Care Team Providers + +------+ + | Care Director Television News Name | Role | Phone | + +------+ + | Raul Pate DO | PCP | | + +------+ + Reason for Visit + + + | Reason | Comments | + + + | Results, Pathology | | + + + Encounter Details +--------+ + + + + | Date | Type | Department | Care Team | Description | +--------+ + + + + | 02/28/ | Telephone | [facility] | Gabe Lawton MD | Results, Pathology | | 2014 | | GASTROENTEROLOGY | [address], [place] | | | | | [address] [place] | [address] [place], [place] | | | | | [address] [place], [place] | [address] | | | | | [address] | | | | | | [phone] | | | +--------+ + + + [...] [place] | | | | | | [address] | | | | | | | | +--------+---------+ + + + documented as of this encounter Visit Diagnoses Not on filedocumented in this encounter"
--- OUTSIDE RECORDS SUMMARY | ~2019-02-27 | XMS | Encounter Summary ---
Demographics + + + | Address | [address] | | | [place] [address] | + + + | Home Phone | | + + + | Preferred Language | Unknown | + + + | Marital Status | | + + + | Gnosticism Affiliation | 1077 | + + + | Race | Unknown | + + + | Ethnic Group | Unknown | + + + Author + + + | Author | [facility] | | | and [place] | + + + | Organization | [facility] | | | and [place] | + + + | Address | Unknown | + + + | Phone | Unavailable | + + + Support + + + + + | Name | Relationship | Address | Phone | + + + + + | Aarti Hooks | ECON | [address] | | | | | [place] | | | | | [address] | | + + + + + Care Team Providers + +------+ + | Care Rn Diabetes Name | Role | Phone | + [...] Description | +--------+--------+ + + + | 01/29/ | Refill | [facility] | Raul Pate | Medication Refill | | 2017 | | [facility] | E, DO [address] | | | | | MEDICAL CLIN[address] | [place], [place] | | | | | [address] [place], | [address] | | | | | [place] [address] | [phone] | | | | | [phone] | | | +--------+--------+ + + + [...] | | | | | [place], [place] | | | | | | [address] | | | | | | | | +--------+---------+ + + + documented as of this encounter Visit Diagnoses + + | Diagnosis | + + | Allergic rhinitis due to other allergic trigger, unspecified seasonality | + + documented in this encounter"
--- OUTSIDE RECORDS SUMMARY | ~2019-02-27 | XMS | Encounter Summary ---
Demographics + + + | Address | [address] | | | [place] [address] | + + + | Home Phone | | + + + | Preferred Language | Unknown | + + + | Marital Status | | + + + | Uatsdin Affiliation | 1077 | + + + | Race | Unknown | + + + | Ethnic Group | Unknown | + + + Author + + + | Author | [facility] | | | and [place] | + + + | Organization | [facility] | | | and [place] | + + + | Address | Unknown | + + + | Phone | Unavailable | + + + Support + + + + + | Name | Relationship | Address | Phone | + + + + + | Aarti Hooks | ECON | [address] | | | | | [place] | | | | | [address] | | + + + + + Care Team Providers + +------+ + | Care Tractor Mechanic Helper Name | Role | Phone | [...] Medication Refill | | 2018 | | [facility] | [facility] [address] [place] | | | | | MEDICAL CLIN[address] | [facility] [address] | | | | | [address] [place], | [phone] | | | | | [place] [address] | | | | | | [phone] | | | +--------+--------+ + + + [...] | | | | | [place], [place] | | | | | | [address] | | | | | | | | +--------+---------+ + + + documented as of this encounter Visit Diagnoses + + | Diagnosis | + + | Allergic rhinitis due to other allergic trigger, unspecified seasonality | + + documented in this encounter"
--- OUTSIDE RECORDS SUMMARY | ~2019-02-27 | XMS | Encounter Summary ---
Demographics + + + | Address | [address] | | | [place] [address] | + + + | Home Phone | | + + + | Preferred Language | Unknown | + + + | Marital Status | | + + + | Sikhism Affiliation | 1077 | + + + | Race | Unknown | + + + | Ethnic Group | Unknown | + + + Author + + + | Author | [facility] | | | and [place] | + + + | Organization | [facility] | | | and [place] | + + + | Address | Unknown | + + + | Phone | Unavailable | + + + Support + + + + + | Name | Relationship | Address | Phone | + + + + + | Aarti Hooks | ECON | [address] | | | | | [place] | | | | | [address] | | + + + + + Care Team Providers + +------+ + | Care Associate Director Of Development Name | Role | Phone | + +------+ + | Raul Pate DO | PCP | | + +------+ + Encounter Details +--------+ + + + + | Date | Type | Department | Care Team | Description | +--------+ + + + + | 10/16/ | Orders Only | [facility] | Raul Pate | | | 2017 | | [facility] | E, DO [address] | | | | | MEDICAL CLIN[address] | [place], [place] | | | | | [address] [place], | [address] | | | | | [place] [address] | [phone] | | | | | [phone] | | | +--------+ + + + [...] [place] | | | | | | [address] | | | | | | | | +--------+---------+ + + + documented as of this encounter Visit Diagnoses Not on filedocumented in this encounter"
--- OUTSIDE RECORDS SUMMARY | ~2019-02-27 | XMS | Encounter Summary ---
Demographics + + + | Address | [address] | | | [place] [address] | + + + | Home Phone | | + + + | Preferred Language | Unknown | + + + | Marital Status | | + + + | Zoroastrian Affiliation | 1077 | + + + | Race | Unknown | + + + | Ethnic Group | Unknown | + + + Author + + + | Author | [facility] | | | and [place] | + + + | Organization | [facility] | | | and [place] | + + + | Address | Unknown | + + + | Phone | Unavailable | + + + Support + + + + + | Name | Relationship | Address | Phone | + + + + + | Aarti Hooks | ECON | [address] | | | | | [place] | | | | | [address] | | + + + + + Care Team Providers + +------+ + | Care Child Day Care Teacher Name | Role | Phone | + [...] Description | +--------+--------+ + + + | 09/15/ | Refill | [facility] | Raul Pate | Medication Refill | | 2018 | | [facility] | E, DO [address] | | | | | MEDICAL CLIN[address] | [place], [place] | | | | | [address] [place], | [address] | | | | | [place] [address] | [phone] | | | | | [phone] | | | +--------+--------+ + + + [...] [place] | | | | | | [address] | | | | | | | | +--------+---------+ + + + documented as of this encounter Visit Diagnoses Not on filedocumented in this encounter"
--- OUTSIDE RECORDS SUMMARY | ~2019-02-27 | XMS | Encounter Summary ---
Demographics + + + | Address | [address] | | | [place] [address] | + + + | Home Phone | | + + + | Preferred Language | Unknown | + + + | Marital Status | | + + + | Buddhist Affiliation | 1077 | + + + | Race | Unknown | + + + | Ethnic Group | Unknown | + + + Author + + + | Author | [facility] | | | and [place] | + + + | Organization | [facility] | | | and [place] | + + + | Address | Unknown | + + + | Phone | Unavailable | + + + Support + + + + + | Name | Relationship | Address | Phone | + + + + + | Aarti Hooks | ECON | [address] | | | | | [place] | | | | | [address] | | + + + + + Care Team Providers + +------+ + | Care Professor Of Economics Name | Role | Phone | + [...] Medication Refill | | 2017 | | [facility] | [facility] | | | | | MEDICAL CLINIC [address] | | | | | | [address]TH [facility], | | | | | | [place] [address] | | | | | | [phone] | | | +--------+--------+ + + + [...] [place] | | | | | | [address] | | | | | | | | +--------+---------+ + + + documented as of this encounter Visit Diagnoses Not on filedocumented in this encounter"
--- OUTSIDE RECORDS SUMMARY | ~2019-02-27 | XMS | Encounter Summary ---
Demographics + + + | Address | [address] | | | [place] [address] | + + + | Home Phone | | + + + | Preferred Language | Unknown | + + + | Marital Status | | + + + | Uatsdin Affiliation | 1077 | + + + | Race | Unknown | + + + | Ethnic Group | Unknown | + + + Author + + + | Author | [facility] | | | and [place] | + + + | Organization | [facility] | | | and [place] | + + + | Address | Unknown | + + + | Phone | Unavailable | + + + Support + + + + + | Name | Relationship | Address | Phone | + + + + + | Aarti Hooks | ECON | [address] | | | | | [place] | | | | | [address] | | + + + + + Care Team Providers + +------+ + | Care Watershed Manager Name | Role | Phone | + +------+ + | Raul Pate DO | PCP | | + +------+ + Reason for Referral Evaluate & Treat (Routine) +--------+ + + + + + | Status | Reason | Specialty | Diagnoses / | Referred By | Referred To | | | | | Procedures | Contact | Contact | +--------+ + + + + + | Closed | Specialty | Gastroenterol | Diagnoses | Harri, | Harri, | | | Services | ogy | Pacemaker | Gabe Longoria MD | Gabe Longoria MD | | | Required | | Blood in | [address], | | | | | stool | [place], [place] | [place] [address] | | | | | Special | [address] [place] | [place], | | | | | screening | [place], [place] | [place] [address] | | | | | for | [address] | Phone: | | | | | malignant | Phone: | [phone] | | | | | neoplasms, | [phone] | Fax: | | | | | colon | Fax: | [phone] | | | | | Procedures | [phone] | | | | | | ND | | | | | | | COLONOSCOPY | | | | | | | FLX DX | | | | | | | W/COLLJ SPEC | | | | | | | WHEN PFRMD | | | | | | | ND | | | | | | | COLONOSCOPY | | | | | | | W/BIOPSY | | | | | | | SINGLE/MULTI | | | | | | | PLE ND | | | | | | | COLSC FLX | | | | | | | W/RMVL OF | | | | | | | TUMOR POLYP | | | | | | | LESION SNARE | | | | | | | TQ ND | | | | | | | ESOPHAGOGAST | | | | | | | RODUODENOSCO | | | | | | | PY TRANSORAL | | | | | | | DIAGNOSTIC | | | | | | | ND EDG | | | | | | | TRANSORAL | | | | | | | BIOPSY | | | | | | | SINGLE/MULTI | | | | | | | PLE ND | | | | | | | ANESTH,INTES | | | | | | | [place],SCOPE,L | | | | | | | OW ND | | | | | | | ANESTH,UGI | | | | | | | ENDOSCOPY | | | +--------+ + + + + + Reason for Visit + + + | Reason | Comments | + + + | Appointment | procedure | + + + Encounter Details +--------+ + + + + | Date | Type | Department | Care Team | Description | +--------+ + + + + | 02/07/ | Telephone | [facility] | Gabe Lawton MD | Appointment | | 2014 | | GASTROENTEROLOGY | [address], [place] | (procedure ) | | | | [address] [place] | [address] [place] | | | | | [address] [place], [place] | [address] | | | | | [address] | | | | | | [phone] | | | +--------+ + + + [...] [place] | | | | | | [address] | | | | | | | | +--------+---------+ + + + + + +--------+ + + | Name | Type | Priori | Associated Diagnoses | Order Schedule | | | | ty | | | + + +--------+ + + | Ambulatory referral | Outpatient | Routin | Pacemaker Blood | Expected: | | to Gastroenterology | Referral | e | in stool Special | 02/22/2015, Expires: | | (efe) | | | screening for | 02/07/2016 | | | | | malignant neoplasms, | | | | | | colon | | + + +--------+ + + documented as of this encounter Visit Diagnoses + + | Diagnosis | + + | Pacemaker - Primary Cardiac pacemaker in situ | + + | Blood in stool | + + | Special screening for malignant neoplasms, colon | + + documented in this encounter"
--- OUTSIDE RECORDS SUMMARY | ~2019-02-27 | XMS | Encounter Summary ---
Demographics + + + | Address | [address] | | | [place] [address] | + + + | Home Phone | | + + + | Preferred Language | Unknown | + + + | Marital Status | | + + + | Moravian Affiliation | 1077 | + + + | Race | Unknown | + + + | Ethnic Group | Unknown | + + + Author + + + | Author | [facility] | | | and [place] | + + + | Organization | [facility] | | | and [place] | + + + | Address | Unknown | + + + | Phone | Unavailable | + + + Support + + + + + | Name | Relationship | Address | Phone | + + + + + | Aarti Hooks | ECON | [address] | | | | | [place] | | | | | [address] | | + + + + + Care Team Providers + +------+ + | Care Rags Laborer Name | Role | Phone | + [...] 07/07/ | Refill | [facility] | Brtitney Choe, | Medication Refill | | 2018 | | [facility] | CC PROGRAM INSTRUCTOR | | | | | MEDICAL CLIN[address] | | | | | | [address]TH [facility], | | | | | | [place] [address] | | | | | | [phone] | | | +--------+--------+ + + + [...] [place] | | | | | | [address] | | | | | | | | +--------+---------+ + + + documented as of this encounter Visit Diagnoses Not on filedocumented in this encounter"
--- OUTSIDE RECORDS SUMMARY | ~2019-02-27 | XMS | Encounter Summary ---
Demographics + + + | Address | [address] | | | [place] [address] | + + + | Home Phone | | + + + | Preferred Language | Unknown | + + + | Marital Status | | + + + | Bahai Affiliation | 1077 | + + + [...] + | Aarti Hooks | ECON | [address] | | | | | [place] | | | | | [address] | | + + + + + Care Team Providers + +------+ + | Care Chain Hoist Operator Name | Role | Phone | + [...] + + | 01/05/ | Telephone | [facility] | Toni Durand, | Device Check | | 2019 | | CARDIOLOGY [facility] | [address] | | | | | [address] | [place], [place] | | | | | [place], [place] | [address] | | | | | [address] | | | | | | [phone] | | | +--------+ + + + [...] [place] | | | | | | [address] | | | | | | | | +--------+---------+ + + + documented as of this encounter Visit Diagnoses Not on filedocumented in this encounter"
--- OUTSIDE RECORDS SUMMARY | ~2019-02-27 | XMS | Encounter Summary ---
Demographics + + + | Address | [address] | | | [place] [address] | + + + | Home Phone | | + + + | Preferred Language | Unknown | + + + | Marital Status | | + + + | Lutheran Affiliation | 1077 | + + + | Race | Unknown | + + + | Ethnic Group | Unknown | + + + Author + + + | Author | [facility] | | | and [place] | + + + | Organization | [facility] | | | and [place] | + + + | Address | Unknown | + + + | Phone | Unavailable | + + + Support + + + + + | Name | Relationship | Address | Phone | + + + + + | Aarti Hooks | ECON | [address] | | | | | [place] | | | | | [address] | | + + + + + Care Team Providers + +------+ + | Care Press Cleaner Name | Role | Phone | + [...] + + | 01/05/ | Telephone | [facility] | Toni Durand, | Device Check | | 2019 | | CARDIOLOGY [facility] | [address] | | | | | [address] | [place], [place] | | | | | [place], [place] | [address] | | | | | [address] | | | | | | [phone] | | | +--------+ + + + [...] [place] | | | | | | [address] | | | | | | | | +--------+---------+ + + + documented as of this encounter Visit Diagnoses Not on filedocumented in this encounter"
--- OUTSIDE RECORDS SUMMARY | ~2019-02-27 | XMS | Encounter Summary ---
Demographics + + + | Address | [address] | | | [place] [address] | + + + | Home Phone | | + + + | Preferred Language | Unknown | + + + | Marital Status | | + + + | Lutheran Affiliation | 1077 | + + + | Race | Unknown | + + + | Ethnic Group | Unknown | + + + Author + + + | Author | [facility] | | | and [place] | + + + | Organization | [facility] | | | and [place] | + + + | Address | Unknown | + + + | Phone | Unavailable | + + + Support + + + + + | Name | Relationship | Address | Phone | + + + + + | Aarti Hooks | ECON | [address] | | | | | [place] | | | | | [address] | | + + + + + Care Team Providers + +------+ + | Care Merchandise Carrier Name | Role | Phone | + [...] Description | +--------+--------+ + + + | 04/21/ | Refill | [facility] | Raul Pate | Medication Refill | | 2018 | | [facility] | E, DO [address] | | | | | MEDICAL CLIN[facility] [address] | [place], [place] | | | | | [address] [place], | [address] | | | | | [place] [address] | [phone] | | | | | [phone] | | | +--------+--------+ + + + [...] | | | | | [place], [place] | | | | | | [address] | | | | | | | | +--------+---------+ + + + documented as of this encounter Visit Diagnoses Not on filedocumented in this encounter"
--- OUTSIDE RECORDS SUMMARY | ~2019-02-27 | XMS | Encounter Summary ---
Demographics + + + | Address | [address] | | | [place] [address] | + + + | Home Phone | | + + + | Preferred Language | Unknown | + + + | Marital Status | | + + + | Cheondoism Affiliation | 1077 | + + + | Race | Unknown | + + + | Ethnic Group | Unknown | + + + Author + + + | Author | [facility] | | | and [place] | + + + | Organization | [facility] | | | and [place] | + + + | Address | Unknown | + + + | Phone | Unavailable | + + + Support + + + + + | Name | Relationship | Address | Phone | + + + + + | Aarti Hooks | ECON | [address] | | | | | [place] | | | | | [address] | | + + + + + Care Team Providers + +------+ + | Care Deployment Technician Name | Role | Phone | + [...] | | [address] [place], | [address] | | | | | [place] [address] | [phone] | | | | | [phone] | | | +--------+ + + + [...] [place] | | | | | | [address] | | | | | | | | +--------+---------+ + + + documented as of this encounter Visit Diagnoses Not on filedocumented in this encounter"
--- OUTSIDE RECORDS SUMMARY | ~2019-02-27 | XMS | Encounter Summary ---
Demographics + + + | Address | [address] | | | [place] [address] | + + + | Home Phone | | + + + | Preferred Language | Unknown | + + + | Marital Status | | + + + | Hoahaoism Affiliation | 1077 | + + + | Race | Unknown | + + + | Ethnic Group | Unknown | + + + Author + + + | Author | [facility] | | | and [place] | + + + | Organization | [facility] | | | and [place] | + + + | Address | Unknown | + + + | Phone | Unavailable | + + + Support + + + + + | Name | Relationship | Address | Phone | + + + + + | Aarti Hooks | ECON | [address] | | | | | [place] | | | | | [address] | | + + + + + Care Team Providers + +------+ + | Care Automotive Worker Name | Role | Phone | + +------+ + | Raul Pate DO | PCP | | + +------+ + Reason for Visit + + + | Reason | Comments | + + + | Establish Care | Re-establish care, no new concerns. | + + + Encounter Details +--------+---------+ + + + | Date | Type | Department | Care Team | Description | +--------+---------+ + + + | 10/20/ | Office | [facility] | Raul Pate | ICD (implantable | | 2018 | Visit | [facility] | E, DO [address] | cardioverter-defibri | | | | MEDICAL CLINIC [address] | [place], [place] | llator) in place | | | | [address] [place], | [address] | (Primary Dx); | | | | [place] [address] | [phone] | Allergic rhinitis | | | | [phone] | | due to other | | | | | | allergic trigger, | | | | | | unspecified | | | | | | seasonality | +--------+---------+ + + + Social History [...] + + + | Blood Pressure | 120/72 | 10/20/2017 1:45 PM | | | | | PDT | | + + + + + | Pulse | 57 | 10/20/2017 1:45 PM | | | | | PDT | | + + + + + | Temperature | 36.7 C (98 F) | 10/20/2017 1:45 PM | | | | | PDT | | + + + + + | Respiratory Rate | 16 | 10/20/2017 1:45 PM | | | | | PDT | | + + + + + | Oxygen Saturation | 98% | 10/20/2017 1:45 PM | | | | | PDT | | + + + + + | Inhaled Oxygen | - | - | | | Concentration | | | | + + + + + | Weight | 95.3 kg (210 lb) | 10/20/2017 1:45 PM | | | | | PDT | | + + + + + | Height | 172.7 cm (5' 8") | 10/20/2017 1:45 PM | | | | | PDT | | + + + + + | Body Mass Index | 31.93 | 10/20/2017 1:45 PM | | | | | PDT | | + + + + + documented in this encounter Progress Notes Raul Pate DO - 10/20/2017 2:20 PM PDT Patient ID: Adis Hooks is a 56 y.o. year old male Chief Complaint: Chief Complaint Patient presents with Establish Care Re-establish care, no new concerns. Assessment ICD (implantable cardioverter-defibrillator) in place (Primary) Allergic rhinitis due to other allergic trigger, unspecified seasonality - Pseudoephedrine HCl; Take 1 tablet by mouth every 6 hours as needed for Congestion. Dispense: 30 tablet; Refill: 5 Plan Subjective: JOYA Arceo presents to the clinic today to establish care, he is a prior patient of [facility]. Physical therapy has helped a lot for his recent back pain, no more pain. Heart is doing good, no activity seen on pacemaker. Has never been shocked. Recently interr ogated and has 5 or 6 years of battery life. Current Outpatient Prescriptions Medication Sig Dispense Refill atenolol (TENORMIN) 50 mg tablet 0 finasteride (PROSCAR) 5 mg tablet 0 MULTIPLE VITAMINS-MINERALS PO Take by mouth. pseudoePHEDrine (SUDAFED) 30 mg tablet Take 1 tablet by mouth every 6 hours as needed f or Congestion. 120 tablet 0 tamsulosin (FLOMAX) 0.4 mg CAPS 0 No current facility-administered medications for this visit. Patient Active Problem List Diagnosis Sinusitis Allergic rhinitis Hemorrhoids Heme positive stool Preventative health care Hx of drug abuse Cardiac arrest ICD (implantable cardioverter-defibrillator) in place H/O cardiac arrest Long Q-T syndrome Presence of single chamber automatic cardioverter/defibrillator (AICD) Family History Problem Relation Age of Onset Other (see comment) Father MVA Prostate cancer Other Past Surgical History: Procedure Laterality Date CARDIAC DEFIBRILLATOR PLACEMENT 1998 replacement 2000, lead replaced 01/2015 CHOLECYSTECTOMY 1998 EGD AND COLONOSCOPY N/A 02/22/2015 Procedure: EGD / COLONOSCOPY - PACEMAKER; Surgeon: Gabe Lawton MD; Location: [facility] Social History Social History Marital status: Spouse name: N/A Number of children: N/A Years of education: N/A Occupational History Not on file. Social History Main Topics Smoking status: Former Smoker Smokeless tobacco: Former User Alcohol use No Drug use: No Sexual activity: Not on file Other Topics Concern Not on file Social History Narrative No narrative on file Allergies Allergen Reactions Penicillins Hives and Rash Codeine Nausea Only Review of Systems Constitutional: Negative. HENT: Negative. Eyes: Negative. Respiratory: Negative for cough and shortness of breath. Cardiovascular: Negative for chest pain and palpitations. Gastrointestinal: Negative for constipation, diarrhea and nausea. Endocrine: Negative. Genitourinary: Negative. Musculoskeletal: Negative for back pain. Skin: Negative. Allergic/Immunologic: Negative. Neurological: Negative. Hematological: Negative. Psychiatric/Behavioral: Negative. Objective: Vitals: BP 120/72 | Pulse 57 | Temp 36.7 C (98 F) (Oral) | Resp 16 | Ht 1.727 m (5' 8") | Wt 95.3 kg (210 lb) | SpO2 98% | BMI 31.93 kg/m Physical Exam Constitutional: He appears well-developed and well-nourished. HENT: Head: Normocephalic. Eyes: Pupils are equal, round, and reactive to light. EOM are normal. Cardiovascular: Normal rate, regular rhythm and normal heart sounds. Pulmonary/Chest: Effort normal and breath sounds normal. Neurological: He is alert. Psychiatric: He has a normal mood and affect. Entered by Charlie John, acting as scribe for Dr. Herlinda DO. The documentation recorded by the scribe accurately reflects the service I personally perfo rmed and the decisions made by me. Dr. Raul Pate DO. 10/20/2017 14:23 Chaya Renee CC CMA - 10/20/2017 2:20 PM PDTJason Phillip Sheets pr esents today with Chief Complaint of: Re-establish care, no new concerns. Current medications verified with her at time of visit. Pt currently shows no s/s of distress, shortness of breath. Vital signs: BP 120/72 | Pulse 57 | Temp 36.7 C (98 F) (Oral) | Resp 16 | Ht 1.727 m (5' 8") | Wt 95.3 kg (210 lb) | SpO2 98% | BMI 31.93 kg/m Labs Obtained per protocol: None. Verbal Report given to: Raul Pate DO. MARTÍN Posada CMA documented in this encounter Plan of Treatment +--------+---------+ + + + | Date | Type | Specialty | Care Team | Description | +--------+---------+ + + + | 09/21/ | Office | Cardiology | Toni Durand, | | | 2019 | Visit | | MD Jesus RUGGIERO | | | | | | [place] | | | | | | [address] | | | | | | | | +--------+---------+ + + + documented as of this encounter Visit Diagnoses + + | Diagnosis | + + | ICD (implantable cardioverter-defibrillator) in place - Primary | + + | Allergic rhinitis due to other allergic trigger, unspecified seasonality | + + documented in this encounter
--- OUTSIDE RECORDS SUMMARY | ~2019-02-27 | XMS | Encounter Summary ---
Demographics + + + | Address | [address] | | | [place] [address] | + + + | Home Phone | | + + + | Preferred Language | Unknown | + + + | Marital Status | | + + + | Alevism Affiliation | 1077 | + + + | Race | Unknown | + + + | Ethnic Group | Unknown | + + + Author + + + | Author | [facility] | | | and [place] | + + + | Organization | [facility] | | | and [place] | + + + | Address | Unknown | + + + | Phone | Unavailable | + + + Support + + + + + | Name | Relationship | Address | Phone | + + + + + | Aarti Sheets | ECON | [address] | | | | | [place] | | | | | [address] | | + + + + + Care Team Providers + +------+ + | Care Fresh Foods Technician Name | Role | Phone | + +------+ + PCP | Unavailable | + +------+ + Encounter Details +--------+ + + + + | Date | Type | Department | Care Team | Description | +--------+ + + + + | 03/30/ | Hospital | [facility] | Oneal Cuenca MD | | | 1998 - | Encounter | MED CTR MED ONC | [address] | | | | | [address] [place] | [place] | | | 04/07/ | | [place] [address] | [address] | | | 1998 | | [phone] | | | +--------+ + + + [...] [place] | | | | | | [address] | | | | | | | | +--------+---------+ + + + documented as of this encounter Visit Diagnoses Not on filedocumented in this encounter"
--- OUTSIDE RECORDS SUMMARY | ~2019-02-27 | XMS | Clinical Summary ---
Demographics + + + | Address | [address] | | | [place] [address] | + + + | Home Phone | | + + + | Preferred Language | Unknown | + + + | Marital Status | | + + + | Jainism Affiliation | 1077 | + + + | Race | Unknown | + + + | Ethnic Group | Unknown | + + + Author + + + | Author | [facility] | | | and [place] | + + + | Organization | [facility] | | | and [place] | + + + | Address | Unknown | + + + | Phone | Unavailable | + + + Support + + + + + | Name | Relationship | Address | Phone | + + + + + | Aarti Hooks | ECON | [address] | | | | | [place] | | | | | [address] | | + + + + + Care Team Providers + +------+ + | Care Desk Pen Set Assembler Name | Role | Phone | + [...] | | 2019 | | | CC LAUNCH ENGINEER | Pre-fill | +--------+ + + + [...] | + + + + | INFLUENZA, [id number], | 02/17/2009 | | | LIVE ATTENUATED [...] | | | | | [place] | | | | | | [address] | | | | | | | [...] Pate DO : 1960MRN: | | | [id number] Primary cardiology provider: Toni Retanafenton Primary | | | electrophysiology provider: None Device screening technician: FIA Formula E | | | Device type: Single chamber [...] | | Gio DO Herlinda : 1960MRN: [id number] Primary cardiology provider: Toni | | [facility] Primary electrophysiology provider: Polly Device screening technician: Fastly | | type: Single chamber (Ventricular)Battery Longevity: [...] +--------+ +---------+--------+ | PACIFICSOURCE | PACIFI | [id number] | | [phone] | | PPO | | | CSOURC | | 019-Pr | 2 | | | | | E | | esent | | | | | | FIRST | | | | | | | | CHOICE | | | | | | + +--------+ +--------+ +---------+--------+ | PACIFICSOURCE | PACIFI | [id number] | | [phone] | | Indemn | | | CSOURC [...] Person | Self | [birth year] | [address] | | | al/Lee | | 1961 | [phone] | [place] | | | [place] | | | 5 (Home) | [address] | | | | | | [phone] | | | | | | | 9 (Work) | | + +--------+ +--------+ + + | Adis Hooks Phillip | Person | Self | [birth year] | | [address] | | | al/Fam | | 1961 | [phone] | [place], [place] | | | [place] | | | 5 (Home) | [address] | | | | | | [phone] | | | | | | | 9 (Work) | | + +--------+ +--------+ + + | Adis Hooks Otis | Person | Self | [birth year] | | [address] | | | al/Fam | | 1961 | [phone] | [place], [place] | | | [place] | | | 5 (Home) | [address] | | | | | | [phone] | | | | | | | 9 (Work) | | + +--------+ +--------+ + + Advance Directives + + + + + | Type | Date Recorded | Patient | Explanation | | | | Stunner | | + + + + + | Power of | | | | | Girls Swimming Coach | | | | + + + + + | Advance | 02/25/2019 | | | | Directive | 1:22 PM | | | + + + + +
--- OUTSIDE RECORDS SUMMARY | ~2019-02-27 | XMS | Encounter Summary ---
Demographics + + + | Address | [address] | | | [place] [address] | + + + | Home Phone | | + + + | Preferred Language | Unknown | + + + | Marital Status | | + + + | Moravian Affiliation | 1077 | + + + | Race | Unknown | + + + | Ethnic Group | Unknown | + + + Author + + + | Author | [facility] | | | and [place] | + + + | Organization | [facility] | | | and [place] | + + + | Address | Unknown | + + + | Phone | Unavailable | + + + Support + + + + + | Name | Relationship | Address | Phone | + + + + + | Aarti Hooks | ECON | [address] | | | | | [place] | | | | | [address] | | + + + + + Care Team Providers + +------+ + | Care It Support Manager Name | Role | Phone | [...] Description | +--------+--------+ + + + | 12/15/ | Refill | [facility] | Raul Pate | Medication Refill | | 2017 | | [facility] | E, DO [address] | | | | | MEDICAL CL[address] | [place], [place] | | | | | [address] [place], | [address] | | | | | [place] [address] | [phone] | | | | | [phone] | | | +--------+--------+ + + + [...] | | | | | [place], [place] | | | | | | [address] | | | | | | | | +--------+---------+ + + + documented as of this encounter Visit Diagnoses + + | Diagnosis | + + | Allergic rhinitis due to other allergic trigger, unspecified seasonality | + + documented in this encounter"
--- OUTSIDE RECORDS SUMMARY | ~2019-02-27 | XMS | Encounter Summary ---
Demographics + + + | Address | [address] | | | [place] [address] | + + + | Home Phone | | + + + | Preferred Language | Unknown | + + + | Marital Status | | + + + | Jehovah'S Witness Affiliation | 1077 | + + + | Race | Unknown | + + + | Ethnic Group | Unknown | + + + Author + + + | Author | [facility] | | | and [place] | + + + | Organization | [facility] | | | and [place] | + + + | Address | Unknown | + + + | Phone | Unavailable | + + + Support + + + + + | Name | Relationship | Address | Phone | + + + + + | Aarti Hooks | ECON | [address] | | | | | [place] | | | | | [address] | | + + + + + Care Team Providers + +------+ + | Care Printed Circuit Boards Plasma Etcher Name | Role | Phone | + [...] Medication Refill | | 2018 | | [facility] | E, DO [address] | | | | | MEDICAL CLIN[address] | [place], [place] | | | | | [address] [place], | [address] | | | | | [place] [address] | [phone] | | | | | [phone] | | | +--------+--------+ + + + [...] | | | | | [place], [place] | | | | | | [address] | | | | | | | | +--------+---------+ + + + documented as of this encounter Visit Diagnoses Not on filedocumented in this encounter"
--- OUTSIDE RECORDS SUMMARY | ~2019-02-27 | XMS | Encounter Summary ---
Demographics + + + | Address | [address] | | | [place] [address] | + + + | Home Phone | | + + + | Preferred Language | Unknown | + + + | Marital Status | | + + + | Church Affiliation | 1077 | + + + | Race | Unknown | + + + | Ethnic Group | Unknown | + + + Author + + + | Author | [facility] | | | and [place] | + + + | Organization | [facility] | | | and [place] | + + + | Address | Unknown | + + + | Phone | Unavailable | + + + Support + + + + + | Name | Relationship | Address | Phone | + + + + + | Aarti Hooks | ECON | [address] | | | | | [place] | | | | | [address] | | + + + + + Care Team Providers + +------+ + | Care Station Installer And Repairer Name | Role | Phone | + [...] Description | +--------+--------+ + + + | 04/09/ | Refill | [facility] | Raul Pate | Medication Refill | | 2018 | | [facility] | E, DO [address] | | | | | MEDICAL CL[address] | [place], [place] | | | | | [address] [place], | [address] | | | | | [place] [address] | [phone] | | | | | [phone] | | | +--------+--------+ + + + [...] | | | | | [place], [place] | | | | | | [address] | | | | | | | | +--------+---------+ + + + documented as of this encounter Visit Diagnoses Not on filedocumented in this encounter"
--- OUTSIDE RECORDS SUMMARY | ~2019-02-27 | XMS | Encounter Summary ---
Demographics + + + | Address | [address] | | | [place] [address] | + + + | Home Phone | | + + + | Preferred Language | Unknown | + + + | Marital Status | | + + + | Denominational Affiliation | 1077 | + + + | Race | Unknown | + + + | Ethnic Group | Unknown | + + + Author + + + | Author | [facility] | | | and [place] | + + + | Organization | [facility] | | | and [place] | + + + | Address | Unknown | + + + | Phone | Unavailable | + + + Support + + + + + | Name | Relationship | Address | Phone | + + + + + | Aarti Hooks | ECON | [address] | | | | | [place] | | | | | [address] | | + + + + + Care Team Providers + +------+ + | Care Barrel Lathe Operator Outside Name | Role | Phone | + [...] Medication Refill | | 2017 | | [facility] | E, DO [address] | | | | | MEDICAL CLIN[address] | [place], [place] | | | | | [address] [place], | [address] | | | | | [place] [address] | [phone] | | | | | [phone] | | | +--------+--------+ + + + [...] [place] | | | | | | [address] | | | | | | | | +--------+---------+ + + + documented as of this encounter Visit Diagnoses Not on filedocumented in this encounter"
--- OUTSIDE RECORDS SUMMARY | ~2019-02-27 | XMS | Encounter Summary ---
Demographics + + + | Address | [address] | | | [place] [address] | + + + | Home Phone | | + + + | Preferred Language | Unknown | + + + | Marital Status | | + + + | Bahai Affiliation | 1077 | + + + | Race | Unknown | + + + | Ethnic Group | Unknown | + + + Author + + + | Author | [facility] | | | and [place] | + + + | Organization | [facility] | | | and [place] | + + + | Address | Unknown | + + + | Phone | Unavailable | + + + Support + + + + + | Name | Relationship | Address | Phone | + + + + + | Aarti Hooks | ECON | [address] | | | | | [place] | | | | | [address] | | + + + + + Care Team Providers + +------+ + | Care Web Marketing Assistant Name | Role | Phone | + [...] Description | +--------+--------+ + + + | 07/31/ | Refill | [facility] | Raul Pate | Medication Refill | | 2018 | | [facility] | E, DO [address] | | | | | MEDICAL CLIN[address] | [place], [place] | | | | | [address] [place], | [address] | | | | | [place] [address] | [phone] | | | | | [phone] | | | +--------+--------+ + + + [...] [place] | | | | | | [address] | | | | | | | | +--------+---------+ + + + documented as of this encounter Visit Diagnoses Not on filedocumented in this encounter"
--- OUTSIDE RECORDS SUMMARY | ~2019-02-27 | XMS | Encounter Summary ---
Demographics + + + | Address | [address] | | | [place] [address] | + + + | Home Phone | | + + + | Preferred Language | Unknown | + + + | Marital Status | | + + + | Jainism Affiliation | 1077 | + + + | Race | Unknown | + + + | Ethnic Group | Unknown | + + + Author + + + | Author | [facility] | | | and [place] | + + + | Organization | [facility] | | | and [place] | + + + | Address | Unknown | + + + | Phone | Unavailable | + + + Support + + + + + | Name | Relationship | Address | Phone | + + + + + | Aarti Hooks | ECON | [address] | | | | | [place] | | | | | [address] | | + + + + + Care Team Providers + +------+ + | Care Inspector Coated Fabrics Name | Role | Phone | + [...] Medication Refill | | 2018 | | [facility] | [facility] [address] [place] | | | | | MEDICAL CLIN[address] | [place] [address] | | | | | [address] [place], | [phone] | | | | | [place] [address] | | | | | | [phone] | | | +--------+--------+ + + + [...] | | | | | [place], [place] | | | | | | [address] | | | | | | | | +--------+---------+ + + + documented as of this encounter Visit Diagnoses + + | Diagnosis | + + | Allergic rhinitis due to other allergic trigger, unspecified seasonality | + + documented in this encounter"
--- OUTSIDE RECORDS SUMMARY | ~2019-02-27 | XMS | Encounter Summary ---
Demographics + + + | Address | [address] | | | [place] [address] | + + + | Home Phone [...] + | Aarti Hooks | ECON | [address] | | | | | [place] | | | | | [address] | | + + + + + Care Team Providers + +------+ + | Care Carbonator Name | Role | Phone | + [...] in | [address], | | | | | stool | [place], [place] | [address] | | | | | Special | [address] [place] | [place], | | | | | screening | [place], [place] | [place] [address] | | | | | for | [address] | Phone: | | | | | malignant | Phone: | [phone] | | | | | neoplasms, | [phone] | Fax: | | | | | colon | Fax: | [phone] | | | | | Procedures | [phone] | | | | | | LA | | | | | | | COLONOSCOPY | | | | | | | FLX DX | | | | | | | W/COLLJ SPEC | | | | | | | WHEN PFRMD | | | | | | | LA | | | | | | | COLONOSCOPY | | | | | | | W/BIOPSY | | | | | | | SINGLE/MULTI | | | | | | | PLE LA | | | | | | | COLSC FLX | | | | | | | W/RMVL OF | | | | | | | TUMOR POLYP | | | | | | | LESION SNARE | | | | | | | TQ LA | | | | | | | ESOPHAGOGAST | | | | | | | RODUODENOSCO | | | | | | | PY TRANSORAL | | | | | | | DIAGNOSTIC | | | | | | | LA EDG | | | | | | | TRANSORAL | | | | | | | BIOPSY | | | | | | | SINGLE/MULTI | | | | | | | PLE LA | | | | | | | ANESTH,INTES | | | | | | | KALLIE,SCOPE,L | | | | | | | OW LA | | | | | | | [...] + + | 02/07/ | Telephone | [facility] | Gabe Lawton MD | Appointment | | 2014 | | GASTROENTEROLOGY | [address], [place] | (procedure ) | | | | [address] [place] | [address] [place] | | | | | [address] [place], [place] | [address] | | | | | [address] | | | | | | [phone] | | | +--------+ + + + [...] [place] | | | | | | [address] | | | | | | | [...]
--- OUTSIDE RECORDS SUMMARY | ~2019-02-27 | XMS | Encounter Summary ---
Demographics + + + | Address | [address] | | | [place] [address] | + + + | Home Phone | | + + + | Preferred Language | Unknown | + + + | Marital Status | | + + + | Adventism Affiliation | 1077 | + + + | Race | Unknown | + + + | Ethnic Group | Unknown | + + + Author + + + | Author | [facility] | | | and [place] | + + + | Organization | [facility] | | | and [place] | + + + | Address | Unknown | + + + | Phone | Unavailable | + + + Support + + + + + | Name | Relationship | Address | Phone | + + + + + | Aarti Sheets | ECON | [address] | | | | | [place] | | | | | [address] | | + + + + + Care Team Providers + +------+ + | Care Oil Well Drilling Manager Name | Role | Phone | + +------+ + PCP | Unavailable | + +------+ + Encounter Details +--------+ + + + + | Date | Type | Department | Care Team | Description | +--------+ + + + + | 10/05/ | Hospital | [facility] | | | | 1994 | Encounter | [facility] | | | | | | [address] | | | | | | [place] | | | | | | [address] | | | | | | [phone] | | | +--------+ + + + [...] | | | | | [place], [place] | | | | | | [address] | | | | | | | | +--------+---------+ + + + documented as of this encounter Visit Diagnoses Not on filedocumented in this encounter"
--- OUTSIDE RECORDS SUMMARY | ~2019-02-27 | XMS | Encounter Summary ---
Demographics + + + | Address | [address] | | | [place] [address] | + + + | Home Phone | | + + + | Preferred Language | Unknown | + + + | Marital Status | | + + + | Shinto Affiliation | 1077 | + + + | Race | Unknown | + + + | Ethnic Group | Unknown | + + + Author + + + | Author | [facility] | | | and [place] | + + + | Organization | [facility] | | | and [place] | + + + | Address | Unknown | + + + | Phone | Unavailable | + + + Support + + + + + | Name | Relationship | Address | Phone | + + + + + | Aarti Hooks | ECON | [address] | | | | | [place] | | | | | [address] | | + + + + + Care Team Providers + +------+ + | Care Assistant Branch Operations Manager Name | Role | Phone | [...] Medication Refill | | 2017 | | [facility] | E, DO [address] | | | | | MEDICAL CLINIC [address] | [place], [place] | | | | | [address] [place], | [address] | | | | | [place] [address] | [phone] | | | | | [phone] | | | +--------+--------+ + + + [...] [place] | | | | | | [address] | | | | | | | | +--------+---------+ + + + documented as of this encounter Visit Diagnoses Not on filedocumented in this encounter"
--- OUTSIDE RECORDS SUMMARY | ~2019-02-27 | XMS | Encounter Summary ---
Demographics + + + | Address | [address] | | | [place] [address] | + + + | Home Phone | | + + + | Preferred Language | Unknown | + + + | Marital Status | | + + + | Roman Catholic Affiliation | 1077 | + + + | Race | Unknown | + + + | Ethnic Group | Unknown | + + + Author + + + | Author | [facility] | | | and [place] | + + + | Organization | [facility] | | | and [place] | + + + | Address | Unknown | + + + | Phone | Unavailable | + + + Support + + + + + | Name | Relationship | Address | Phone | + + + + + | Aarti Hooks | ECON | [address] | | | | | [place] | | | | | [address] | | + + + + + Care Team Providers + +------+ + | Care Spare Hand Carding Name | Role | Phone | + [...] Medication Refill; | | 2018 | | [facility] | E, DO [address] | Medication Refill | | | | MEDICAL CLINIC [address] | [place], [place] | | | | | [address] [facility], | [address] | | | | | [place] [address] | [phone] | | | | | [phone] | | | +--------+--------+ + + + [...] [place] | | | | | | [address] | | | | | | | | +--------+---------+ + + + documented as of this encounter Visit Diagnoses Not on filedocumented in this encounter"
--- OUTSIDE RECORDS SUMMARY | ~2019-02-27 | XMS | Encounter Summary ---
Demographics + + + | Address | [address] | | | [place] [address] | + + + | Home Phone | | + + + | Preferred Language | Unknown | + + + | Marital Status | | + + + | Advent Affiliation | 1077 | + + + | Race | Unknown | + + + | Ethnic Group | Unknown | + + + Author + + + | Author | [facility] | | | and [place] | + + + | Organization | [facility] | | | and [place] | + + + | Address | Unknown | + + + | Phone | Unavailable | + + + Support + + + + + | Name | Relationship | Address | Phone | + + + + + | Aarti Hooks | ECON | [address] | | | | | [place] | | | | | [address] | | + + + + + Care Team Providers + +------+ + | Care Educational Aid Name | Role | Phone | + [...] | Blood in | | [address], | | | | | stool Colon | | [address] | | | | | cancer | | [place], | | | | | screening | | [place] [address] | | | | | Pacemaker | | Phone: | | | | | [Z95.0]Blood | | [phone] | | | | | in stool | | Fax: | | | | | [K92.1]Colon | | [phone] | | | | | cancer | | | | | | | screening | | | | | | | [Z12.11] | | | +--------+--------+ + + + + Encounter Details +--------+ + + + + | Date | Type | Department | Care Team | Description | +--------+ + + + + | 02/22/ | Hospital | [facility] | Gabe aLwton MD | Special screening | | 2015 | Encounter | MED CTR MP INTRA OP | [address], [place] | for malignant | | | | [address] | [address] [place], [place] | neoplasms, colon | | | | [place], [place] | [address] | (Primary Dx); Heme | | | | [address] | | positive stool | | | | [phone] | | | +--------+ + + + [...] [place] | | | | | | [address] | | | | | | | [...] [address] | [place] | [phone] | | [facility] | | [address] | | | - LABORATORY | | | | + + + + + EGD (02/22/2015 8:55 AM PST) + + | Specimen | + + | | + + + + -+ | Narrative | Performed At | + + -+ | | [facility] | | GastroenterologyPatient Name: Adis HooksProcedure Date: 02/22/2015 | [facility] | | 8:55 AMMRN: [id number] #: [id number] of : | | | 1Admit Type: AmbulatoryAge: 54Room: [facility] 01Gender: MaleNote | | | Status: FinalizedAttending MD: Gabe Lawton, MDProcedure: | | | Upper GI endoscopyIndications: Heme positive | | | stoolProviders: Gabe Lawton MD, Kerry Fall | | | NIKITA Goldberg, Angie Jackson, | | | Director Industrial Museum, Renard Chow MD (Anesthesia | | | [...] the anesthesiologist and | | | the sugarcane research technician in the endoscopy suite. Mental Status [...] Scope In: 9:09:15 AMScope Out: 9:12:40 AM [facility]. | | | [facility], [address] [place] [address] | | | [phone] | | | - Continue present medications. [...] |Scope Out: 9:12:40 AM | | | [facility]. [facility], [address] [place] [address] | | | [address] | | + + -+ + +---------+ [...] 02/22/2015 | [facility] | | 8:55 AMMRN: [id number] #: [id number] of : | | | 1Admit Type: AmbulatoryAge: 54Room: [facility] 01Gender: MaleNote | | | Status: FinalizedAttending MD: JOSE JUAN Baileyrocedure: | | | ColonoscopyIndications: Screening for colorectal malignant | | | neoplasmProviders: Gabe Lawton MD, Kerry Fall | | | NIKITA Goldberg, Angie Jackson, | | | Director Industrial Museum, Renard Chow MD (Anesthesia | | | [...] the anesthesiologist and the | | | sugarcane research technician in the endoscopy suite. Mental Status [...] AMScope Out: 9:23:26 AM | | | [facility], [facility] [address] [place], [place] | | | [address] | | | anti-inflammatory drugs for 7 [...] |Scope Out: 9:23:26 AM | | | [facility], [address] [facility], [place], [place] | | | [address] | | + + -+ + +---------+ [...] POLYP SPECIMEN SOURCE: A. SIGMOID POLYP | [place] PATHOLOGY | | CLINICAL HISTORY: Z95.0 (presence [...] | | | Tubular adenoma (1 fragment). JVR:[facility]:C2NR GROSS | | | DESCRIPTION: Received in formalin labeled "Adis Sheets" and "sigmoid | | | polyp" on the requisition is a 0.3 x 0.3 x 0.2 cm pink-quintero tissue | | | fragment, submitted, all in (A1). ka:JVR:[facility] PERFORMING | | | LABORATORY: Tissue processing and slide preparation were performed by | | | [facility], [address] [facility] [facility], [place] [address] | | | (Development Planner: Easton Diallo M.D. CLIA#: [id number]). | | | Professional interpretation was performed by [facility], | | | [facility], [address] | | | [place] [address] (Development Planner: Easton Diallo M.D.; CLIA#: | | | [id number]). Diagnostician: Easton Diallo MD Pathologist | | [...]
--- OUTSIDE RECORDS SUMMARY | ~2019-02-27 | XMS | Encounter Summary ---
Demographics + + + | Address | [address] | | | [place] [address] | + + + | Home Phone | | + + + | Preferred Language | Unknown | + + + | Marital Status | | + + + | Latter Day Affiliation | 1077 | + + + [...] + + + + + | Aarti Hoosk | ECON | [address] | | | | | [place] | | | | | [address] | | + + + + + Care Team Providers + +------+ + | Care Pourer Off Name | Role | Phone | + [...] Medication Refill | | 2017 | | [facility] | E, DO [address] | | | | | MEDICAL CLINIC [address] | [place], [place] | | | | | [address] [place], | [address] | | | | | [place] [address] | [phone] | | | | | [phone] | | | +--------+--------+ + + + [...] | | | | | [place], [place] | | | | | | [address] | | | | | | | | +--------+---------+ + + + documented as of this encounter Visit Diagnoses + + | Diagnosis | + + | Allergic rhinitis due to other allergic trigger, unspecified seasonality | + + documented in this encounter"
--- OUTSIDE RECORDS SUMMARY | ~2019-02-27 | XMS | Encounter Summary ---
Demographics + + + | Address | [address] | | | [place] [address] | + + + | Home Phone | | + + + | Preferred Language | Unknown | + + + | Marital Status | | + + + | Rastafari Affiliation | 1077 | + + + | Race | Unknown | + + + | Ethnic Group | Unknown | + + + Author + + + | Author | [facility] | | | and [place] | + + + | Organization | [facility] | | | and [place] | + + + | Address | Unknown | + + + | Phone | Unavailable | + + + Support + + + + + | Name | Relationship | Address | Phone | + + + + + | Aarti Hooks | ECON | [address] | | | | | [place] | | | | | [address] | | + + + + + Care Team Providers + +------+ + | Care Post Doc Fellowship Name | Role | Phone | + [...] left | | 2019 | Visit | [facility] | E, DO [address] | lower limb (Primary | | | | MEDICAL CLINIC [address] | [place], [place] | Dx); Rash | | | | [address] [place], | [address] | | | | | [place] [address] | [phone] | | | | | [phone] | | | +--------+---------+ + + + [...] mood and affect. Entered by Charlie John [facility], acting as scribe for Adrián Pate D.O. [...] [place] | | | | | | [address] | | | | | | | | +--------+---------+ + + + documented as of this encounter Visit Diagnoses + + | Diagnosis | + + | Cellulitis of left lower limb - Primary | + + | Rash Rash and other nonspecific skin eruption | + + documented in this encounter
--- OUTSIDE RECORDS SUMMARY | ~2019-02-27 | XMS | Encounter Summary ---
Demographics + + + | Address | [address] | | | [place] [address] | + + + | Home Phone | | + + + | Preferred Language | Unknown | + + + | Marital Status | | + + + | Nondenominational Affiliation | 1077 | + + + | Race | Unknown | + + + | Ethnic Group | Unknown | + + + Author + + + | Author | [facility] | | | and [place] | + + + | Organization | [facility] | | | and [place] | + + + | Address | Unknown | + + + | Phone | Unavailable | + + + Support + + + + + | Name | Relationship | Address | Phone | + + + + + | Aarti Hooks | ECON | [address] | | | | | [place] | | | | | [address] | | + + + + + Care Team Providers + +------+ + | Care Fire Chief Name | Role | Phone | + [...] + + | 11/04/ | Procedure | [facility] | | 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
--- OUTSIDE RECORDS SUMMARY | ~2019-02-27 | XMS | Encounter Summary ---
Demographics + + + | Address | [address] | | | [place] [address] | + + + | Home Phone | | + + + | Preferred Language | Unknown | + + + | Marital Status | | + + + | Evangelical Affiliation | 1077 | + + + | Race | Unknown | + + + | Ethnic Group | Unknown | + + + Author + + + | Author | [facility] | | | and [place] | + + + | Organization | [facility] | | | and [place] | + + + | Address | Unknown | + + + | Phone | Unavailable | + + + Support + + + + + | Name | Relationship | Address | Phone | + + + + + | Aarti Hooks | ECON | [address] | | | | | [place] | | | | | [address] | | + + + + + Care Team Providers + +------+ + | Care Control Room Agent Name | Role | Phone | + [...] left | | 2019 | Visit | [facility] | [facility] PHOTO STYLIST [address] | lower limb (Primary | | | | [facility] [address] | [address] [place] | Dx) | | | | [address] [place], | [place] [address] | | | | | [place] [address] | [phone] | | | | | [phone] | | | +--------+---------+ + + + [...] made to ensure accuracy. However, inadvertent computerized gate operator errors may be pre sent documented constantine peguero this encounter Plan of Treatment +--------+---------+ + + + | Date | Type | Specialty | Care Team | Description | +--------+---------+ + + + | 09/21/ | Office | Cardiology | Toni Durand, | | | 2019 | Visit | | MD Jesus RUGGIERO | | | | | | [place], [place] | | | | | | [address] | | | | | | | | +--------+---------+ + + + documented as of this encounter Visit Diagnoses + + | Diagnosis | + + | Cellulitis of left lower limb - Primary | + + documented in this encounter
--- OUTSIDE RECORDS SUMMARY | ~2019-02-27 | XMS | Encounter Summary ---
Demographics + + + | Address | [address] | | | [place] [address] | + + + | Home Phone | | + + + | Preferred Language | Unknown | + + + | Marital Status | | + + + | Jain Affiliation | 1077 | + + + | Race | Unknown | + + + | Ethnic Group | Unknown | + + + Author + + + | Author | [facility] | | | and [place] | + + + | Organization | [facility] | | | and [place] | + + + | Address | Unknown | + + + | Phone | Unavailable | + + + Support + + + + + | Name | Relationship | Address | Phone | + + + + + | Aarti Hooks | ECON | [address] | | | | | [place] | | | | | [address] | | + + + + + Care Team Providers + +------+ + | Care Doctor Assistant Name | Role | Phone | + +------+ + | Raul Pate DO | PCP | | + +------+ + Encounter Details +--------+ + + + + | Date | Type | Department | Care Team | Description | +--------+ + + + + | 12/08/ | Abstract | [facility] | Gabe Lawton MD | | | 2014 | | GASTROENTEROLOGY | [address], [place] | | | | | [address] [place] | [address] [place], [place] | | | | | [address] [place], [place] | [address] | | | | | [address] | | | | | | [phone] | | | +--------+ + + + [...] + + + | Blood Pressure | 131/79 | 01/30/2015 1:47 PM | | | | | PST | | + + + + + | Pulse | 72 | 01/30/2015 1:47 PM | | | | | PST | | + + + + + | Temperature | 36.1 C (97 F) | 01/30/2015 1:47 PM | | | | | PST | | + + + + + | Respiratory Rate | 16 | 01/30/2015 1:47 PM | | | | | PST | | + + + + + | Oxygen Saturation | - | - | | + + + + + | Inhaled Oxygen | - | - | | | Concentration | | | | + + + + + | Weight | 100.7 kg (222 lb) | 01/30/2015 1:47 PM | | | | | PST | | + + + + + | Height | 168.9 cm (5' 6.5") | 01/30/2015 1:47 PM | | | | | PST | | + + + + + | Body Mass Index | 35.29 | 01/30/2015 1:47 PM | | | | | PST | | + + + + + documented in this encounter Plan of Treatment +--------+---------+ + + + | Date | Type | Specialty | Care Team | Description | +--------+---------+ + + + | 09/21/ | Office | Cardiology | Toni Durand, | | | 2019 | Visit | | MD Jesus RUGGIERO | | | | | | [place] | | | | | | [address] | | | | | | | | +--------+---------+ + + + documented as of this encounter Visit Diagnoses Not on filedocumented in this encounter
--- OUTSIDE RECORDS SUMMARY | ~2019-02-27 | XMS | Encounter Summary ---
Demographics + + + | Address | [address] | | | [place] [address] | + + + | Home Phone | | + + + | Preferred Language | Unknown | + + + | Marital Status | | + + + | Voodoo Affiliation | 1077 | + + + | Race | Unknown | + + + | Ethnic Group | Unknown | + + + Author + + + | Author | [facility] | | | and [place] | + + + | Organization | [facility] | | | and [place] | + + + | Address | Unknown | + + + | Phone | Unavailable | + + + Support + + + + + | Name | Relationship | Address | Phone | + + + + + | Aarti Hooks | ECON | [address] | | | | | [place] | | | | | [address] | | + + + + + Care Team Providers + +------+ + | Care Digital Sales Executive Name | Role | Phone | + [...] | | | [facility] [address] | [place], [place] | | | | | [address] [place], | [address] | | | | | [place] [address] | [phone] | | | | | [phone] | | | +--------+--------+ + + + [...] | | | | | [place], [place] | | | | | | [address] | | | | | | | | +--------+---------+ + + + documented as of this encounter Visit Diagnoses Not on filedocumented in this encounter"
--- OUTSIDE RECORDS SUMMARY | ~2019-02-27 | XMS | Encounter Summary ---
Demographics + + + | Address | [address] | | | [place] [address] | + + + | Home Phone | | + + + | Preferred Language | Unknown | + + + | Marital Status | | + + + | Confucianism Affiliation | 1077 | + + + | Race | Unknown | + + + | Ethnic Group | Unknown | + + + Author + + + | Author | [facility] | | | and [place] | + + + | Organization | [facility] | | | and [place] | + + + | Address | Unknown | + + + | Phone | Unavailable | + + + Support + + + + + | Name | Relationship | Address | Phone | + + + + + | Aarti Hooks | ECON | [address] | | | | | [place] | | | | | [address] | | + + + + + Care Team Providers + +------+ + | Care Healthcare Educator Name | Role | Phone | + [...] | | | [facility] [address] | [place], [place] | | | | | [address] [place], | [address] | | | | | [place] [address] | [phone] | | | | | [phone] | | | +--------+--------+ + + + [...] | | | | | [place], [place] | | | | | | [address] | | | | | | | | +--------+---------+ + + + documented as of this encounter Visit Diagnoses Not on filedocumented in this encounter"
--- OUTSIDE RECORDS SUMMARY | ~2019-02-27 | XMS | Encounter Summary ---
Demographics + + + | Address | [address] | | | [place] [address] | + + + | Home Phone [...] + | Aarti Hooks | ECON | [address] | | | | | [place] | | | | | [address] | | + + + + + Care Team Providers + +------+ + | Care Gumming Machine Operator Name | Role | Phone [...] | | | [facility] [address] | [place], [place] | | | | | [address] [place], | [address] | | | | | [place] [address] | [phone] | | | | | [phone] | | | +--------+--------+ + + + [...] | | | | | [place], [place] | | | | | | [address] | | | | | | | | +--------+---------+ + + + documented as of this encounter Visit Diagnoses + + | Diagnosis | + + | Allergic rhinitis due to other allergic trigger, unspecified seasonality | + + documented in this encounter"
--- OUTSIDE RECORDS SUMMARY | ~2019-02-27 | XMS | Encounter Summary ---
Demographics + + + | Address | [address] | | | [place] [address] | + + + | Home Phone | | + + + | Preferred Language | Unknown | + + + | Marital Status | | + + + | Buddhist Affiliation | 1077 | + + + | Race | Unknown | + + + | Ethnic Group | Unknown | + + + Author + + + | Author | [facility] | | | and [place] | + + + | Organization | [facility] | | | and [place] | + + + | Address | Unknown | + + + | Phone | Unavailable | + + + Support + + + + + | Name | Relationship | Address | Phone | + + + + + | Aarti Hooks | ECON | [address] | | | | | [place] | | | | | [address] | | + + + + + Care Team Providers + +------+ + | Care Stem Maker Name | Role | Phone | [...] + + | 02/28/ | Telephone | [facility] | Gabe Lawton MD | Results, Pathology | | 2014 | | GASTROENTEROLOGY | [address], [place] | | | | | [address] [place] | [address] [place], [place] | | | | | [address] [place], [place] | [address] | | | | | [address] | | | | | | [phone] | | | +--------+ + + + [...] [place] | | | | | | [address] | | | | | | | | +--------+---------+ + + + documented as of this encounter Visit Diagnoses Not on filedocumented in this encounter"
--- OUTSIDE RECORDS SUMMARY | ~2019-02-27 | XMS | Encounter Summary ---
Demographics + + + | Address | [address] | | | [place] [address] | + + + | Home Phone | | + + + | Preferred Language | Unknown | + + + | Marital Status | | + + + | Uatsdin Affiliation | 1077 | + + + | Race | Unknown | + + + | Ethnic Group | Unknown | + + + Author + + + | Author | [facility] | | | and [place] | + + + | Organization | [facility] | | | and [place] | + + + | Address | Unknown | + + + | Phone | Unavailable | + + + Support + + + + + | Name | Relationship | Address | Phone | + + + + + | Aarti Hooks | ECON | [address] | | | | | [place] | | | | | [address] | | + + + + + Care Team Providers + +------+ + | Care Staffing Assistant Name | Role | Phone | [...] + + | 02/28/ | Telephone | [facility] | Gabe Lawton MD | Results, Pathology | | 2014 | | GASTROENTEROLOGY | [address], [place] | | | | | [address] [place] | [address] [place], [place] | | | | | [address] [place], [place] | [address] | | | | | [address] | | | | | | [phone] | | | +--------+ + + + [...] [place] | | | | | | [address] | | | | | | | | +--------+---------+ + + + documented as of this encounter Visit Diagnoses Not on filedocumented in this encounter"
--- OUTSIDE RECORDS SUMMARY | ~2019-02-27 | XMS | Encounter Summary ---
Demographics + + + | Address | [address] | | | [place] [address] | + + + | Home Phone | | + + + | Preferred Language | Unknown | + + + | Marital Status | | + + + | Baptist Affiliation | 1077 | + + + [...] + | Aarti Hooks | ECON | [address] | | | | | [place] | | | | | [address] | | + + + + + Care Team Providers + +------+ + | Care Leach Runner Name | Role | Phone | + [...] | | [facility] | E, DO [address] | | | | | MEDICAL CLIN[facility] [address] | [place], [place] | | | | | [address] [place], | [address] | | | | | [place] [address] | [phone] | | | | | [phone] | | | +--------+--------+ + + + [...] | | | | | [place], [place] | | | | | | [address] | | | | | | | | +--------+---------+ + + + documented as of this encounter Visit Diagnoses + + | Diagnosis | + + | Allergic rhinitis due to other allergic trigger, unspecified seasonality | + + documented in this encounter"
--- OUTSIDE RECORDS SUMMARY | ~2019-02-27 | XMS | Encounter Summary ---
Demographics + + + | Address | [address] | | | [place] [address] | + + + | Home Phone [...] + | Aarti Sheets | ECON | [address] | | | | | [place] | | | | | [address] | | + + + + + Care Team Providers + +------+ + | Care Semiconductor Wafers Etch Operator Name | Role | Phone | + +------+ + PCP | Unavailable | + +------+ + Encounter Details +--------+ + + + + | Date | Type | Department | Care Team | Description | +--------+ + + + + | 04/07/ | Hospital | [facility] | Oneal Cuenca MD | | | 1998 - | Encounter | MED CTR GENERIC IP | [address] | | | | | CONV DEPT [address] | [place], [place] | | | 04/10/ | | [place], | [address] | | | 1998 | | [place] [address] | | | | | | [phone] | | | +--------+ + + + [...] [place] | | | | | | [address] | | | | | | | | +--------+---------+ + + + documented as of this encounter Visit Diagnoses Not on filedocumented in this encounter"
--- OUTSIDE RECORDS SUMMARY | ~2019-02-27 | XMS | Encounter Summary ---
Demographics + + + | Address | [address] | | | [place] [address] | + + + | Home Phone | | + + + | Preferred Language | Unknown | + + + | Marital Status | | + + + | Adventist Affiliation | 1077 | + + + | Race | Unknown | + + + | Ethnic Group | Unknown | + + + Author + + + | Author | [facility] | | | and [place] | + + + | Organization | [facility] | | | and [place] | + + + | Address | Unknown | + + + | Phone | Unavailable | + + + Support + + + + + | Name | Relationship | Address | Phone | + + + + + | Aarti Hooks | ECON | [address] | | | | | [place] | | | | | [address] | | + + + + + Care Team Providers + +------+ + | Care Conductor Freight Name | Role | Phone | + [...] + | 01/05/ | Telephone | [facility] | Toni Durand, | Device Check | | 2019 | | CARDIOLOGY STEPHEN | [address] | | | | | [address] | [place], [place] | | | | | [place], [place] | [address] | | | | | [address] | | | | | | [phone] | | | +--------+ + + + [...] [place] | | | | | | [address] | | | | | | | | +--------+---------+ + + + documented as of this encounter Visit Diagnoses Not on filedocumented in this encounter"
--- OUTSIDE RECORDS SUMMARY | ~2019-02-27 | XMS | Encounter Summary ---
Demographics + + + | Address | [address] | | | [place] [address] | + + + | Home Phone | | + + + | Preferred Language | Unknown | + + + | Marital Status | | + + + | Jew Affiliation | 1077 | + + + | Race | Unknown | + + + | Ethnic Group | Unknown | + + + Author + + + | Author | [facility] | | | and [place] | + + + | Organization | [facility] | | | and [place] | + + + | Address | Unknown | + + + | Phone | Unavailable | + + + Support + + + + + | Name | Relationship | Address | Phone | + + + + + | Aarti Sheets | ECON | [address] | | | | | [place] | | | | | [address] | | + + + + + Care Team Providers + +------+ + | Care Drying Machine Tender Name | Role | Phone | + +------+ + PCP | Unavailable | + +------+ + Encounter Details +--------+ + + + + | Date | Type | Department | Care Team | Description | +--------+ + + + + | 03/30/ | Hospital | [facility] | Oneal Cuenca MD | | | 1998 - | Encounter | MED CTR MED ONC | [address] | | | | | [address] [place] | [place] | | | 04/07/ | | [place] [address] | [address] | | | 1998 | | [phone] | | | +--------+ + + + [...] [place] | | | | | | [address] | | | | | | | | +--------+---------+ + + + documented as of this encounter Visit Diagnoses Not on filedocumented in this encounter"
--- OUTSIDE RECORDS SUMMARY | ~2019-02-27 | XMS | Encounter Summary ---
Demographics + + + | Address | [address] | | | [place] [address] | + + + | Home Phone [...] + | Author | [facility] | | | and [place] | + + + | Organization | [facility] | | | and [place] | + + + | Address | Unknown | + + + | Phone | Unavailable | + + + Support + + + + + | Name | Relationship | Address | Phone | + + + + + | Aarti Hooks | ECON | [address] | | | | | [place] | | | | | [address] | | + + + + + Care Team Providers + +------+ + | Care Polishing Wheel Setter Name | Role | Phone | + [...] | | [facility] | E, DO [address] | | | | | MEDICAL CLIN[address] | [place], [place] | | | | | [address] [place], | [address] | | | | | [place] [address] | [phone] | | | | | [phone] | | | +--------+--------+ + + + [...] [place] | | | | | | [address] | | | | | | | | +--------+---------+ + + + documented as of this encounter Visit Diagnoses Not on filedocumented in this encounter"
--- OUTSIDE RECORDS SUMMARY | ~2019-02-27 | XMS | Encounter Summary ---
Demographics + + + | Address | [address] | | | [place] [address] | + + + | Home Phone | | + + + | Preferred Language | Unknown | + + + | Marital Status | | + + + | Adventism Affiliation | 1077 | + + + | Race | Unknown | + + + | Ethnic Group | Unknown | + + + Author + + + | Author | [facility] | | | and [place] | + + + | Organization | [facility] | | | and [place] | + + + | Address | Unknown | + + + | Phone | Unavailable | + + + Support + + + + + | Name | Relationship | Address | Phone | + + + + + | Aarti Hooks | ECON | [address] | | | | | [place] | | | | | [address] | | + + + + + Care Team Providers + +------+ + | Care Behavior Therapist Name | Role | Phone | + [...] | | | MEDICAL [facility] [address] | [place], [place] | | | | | [address] [place], | [address] | | | | | [place] [address] | [phone] | | | | | [phone] | | | +--------+--------+ + + + [...] [place] | | | | | | [address] | | | | | | | | +--------+---------+ + + + documented as of this encounter Visit Diagnoses Not on filedocumented in this encounter"
--- OUTSIDE RECORDS SUMMARY | ~2019-02-27 | XMS | Encounter Summary ---
Demographics + + + | Address | [address] | | | [place] [address] | + + + | Home Phone | | + + + | Preferred Language | Unknown | + + + | Marital Status | | + + + | Mormon Affiliation | 1077 | + + + | Race | Unknown | + + + | Ethnic Group | Unknown | + + + Author + + + | Author | [facility] | | | and [place] | + + + | Organization | [facility] | | | and [place] | + + + | Address | Unknown | + + + | Phone | Unavailable | + + + Support + + + + + | Name | Relationship | Address | Phone | + + + + + | Aarti Hooks | ECON | [address] | | | | | [place] | | | | | [address] | | + + + + + Care Team Providers + +------+ + | Care Wood Shingle Roofer Name | Role | Phone | + [...] [place] | | | | | | [address] | [address] Phone: | | | | | | Phone: | [phone] | | | | | | [phone] | Fax: | | | | | | Fax: | [phone] | | | | | | [phone] | | + + + + + [...] right | | 2019 | Visit | [facility] | Janice, AUTO GLASS WORKER [address] | wrist (Primary Dx); | | | | MED[facility] [address] | [address] [place] | Need for influenza | | | | [address] [place], | [place] [address] | vaccination | | | | [place] [address] | [phone] | | | | | [phone] | | | | | | | Raul Pate, | | | | | | DO [address] | | | | | | [place], [place] | | | | | | [address] | | | | | | [phone] | | | | | | | [...] - PACEMAKER; Surgeon: Gabe Lawton MD; Location: [facility] PROCEDURE UNIT OTHER SURGICAL HISTORY Right HARDWARE [...] file Gets together: Not on file Attends pentecostalism service: Not on file Active member of [...] This documentation prepared by Frieda Barragan medical educator. All aspects of this chart review ed [...] | | | | [place] | | | | | | [address] | | | | | | | [...]
--- OUTSIDE RECORDS SUMMARY | ~2019-02-27 | XMS | Encounter Summary ---
Demographics + + + | Address | [address] | | | [place] [address] | + + + | Home Phone | | + + + | Preferred Language | Unknown | + + + | Marital Status | | + + + | Mormonism Affiliation | 1077 | + + + | Race | Unknown | + + + | Ethnic Group | Unknown | + + + Author + + + | Author | [facility] | | | and [place] | + + + | Organization | [facility] | | | and [place] | + + + | Address | Unknown | + + + | Phone | Unavailable | + + + Support + + + + + | Name | Relationship | Address | Phone | + + + + + | Aarti Hooks | ECON | [address] | | | | | [place] | | | | | [address] | | + + + + + Care Team Providers + +------+ + | Care Grain Elevator Agent Name | Role | Phone | [...] Medication Refill | | 2018 | | [facility] | E, DO [address] | | | | | MEDICAL CLINIC [address] | [place], [place] | | | | | [address] [place], | [address] | | | | | [place] [address] | [phone] | | | | | [phone] | | | +--------+--------+ + + + [...] | | | | | [place], [place] | | | | | | [address] | | | | | | | | +--------+---------+ + + + documented as of this encounter Visit Diagnoses Not on filedocumented in this encounter"
--- OUTSIDE RECORDS SUMMARY | ~2019-02-27 | XMS | Encounter Summary ---
Demographics + + + | Address | [address] | | | [place] [address] | + + + | Home Phone | | + + + | Preferred Language | Unknown | + + + | Marital Status | | + + + | Oriental Orthodox Affiliation | 1077 | + + [...] + | Aarti Hooks | ECON | [address] | | | | | [place] | | | | | [address] | | + + + + + Care Team Providers + +------+ + | Care Assistant Business Manager Name | Role | Phone | [...] | | | MED[facility] [address] | [place], [place] | | | | | [address] [place], | [address] | | | | | [place] [address] | [phone] | | | | | [phone] | | | +--------+--------+ + + + [...] [place] | | | | | | [address] | | | | | | | | +--------+---------+ + + + documented as of this encounter Visit Diagnoses Not on filedocumented in this encounter"
--- OUTSIDE RECORDS SUMMARY | ~2019-02-27 | XMS | Encounter Summary ---
Demographics + + + | Address | [address] | | | [place] [address] | + + + | Home Phone [...] + | Aarti Hooks | ECON | [address] | | | | | [place] | | | | | [address] | | + + + + + Care Team Providers + +------+ + | Care Technologist Development Name | Role | Phone | [...] Medication Refill; | | 2018 | | [facility] | E, DO [address] | Medication Refill | | | | MEDICAL CLIN[facility] [address] | [place], [place] | | | | | [address] [facility], | [address] | | | | | [place] [address] | [phone] | | | | | [phone] | | | +--------+--------+ + + + [...] [place] | | | | | | [address] | | | | | | | | +--------+---------+ + + + documented as of this encounter Visit Diagnoses Not on filedocumented in this encounter"
--- OUTSIDE RECORDS SUMMARY | ~2019-02-27 | XMS | Encounter Summary ---
Demographics + + + | Address | [address] | | | [place] [address] | + + + | Home Phone | | + + + | Preferred Language | Unknown | + + + | Marital Status | | + + + | Religion Affiliation | 1077 | + + + [...] + | Aarti Hooks | ECON | [address] | | | | | [place] | | | | | [address] | | + + + + + Care Team Providers + +------+ + | Care Rod Puller Name | Role | Phone | + [...] Insulin Syringe | | 2018 | | [facility] | CC [facility] | Pre-fill | | | | MEDICAL CLINIC [address] | | | | | | 4TH [facility], | | | | | | [place] [address] | | | | | | [phone] | | | +--------+--------+ + + + [...] [place] | | | | | | [address] | | | | | | | | +--------+---------+ + + + documented as of this encounter Visit Diagnoses Not on filedocumented in this encounter"
--- OUTSIDE RECORDS SUMMARY | ~2019-02-27 | XMS | Encounter Summary ---
Demographics + + + | Address | [address] | | | [place] [address] | + + + | Home Phone | | + + + | Preferred Language | Unknown | + + + | Marital Status | | + + + | Advent Affiliation | 1077 | + + + | Race | Unknown | + + + | Ethnic Group | Unknown | + + + Author + + + | Author | [facility] | | | and [place] | + + + | Organization | [facility] | | | and [place] | + + + | Address | Unknown | + + + | Phone | Unavailable | + + + Support + + + + + | Name | Relationship | Address | Phone | + + + + + | Aarti Hooks | ECON | [address] | | | | | [place] | | | | | [address] | | + + + + + Care Team Providers + +------+ + | Care Operational Assistant Name | Role | Phone | [...] Medication Refill | | 2018 | | [facility] | E, DO [address] | | | | | MEDICAL CLINIC [address] | [place], [place] | | | | | [address] [place], | [address] | | | | | [place] [address] | [phone] | | | | | [phone] | | | +--------+--------+ + + + [...] [place] | | | | | | [address] | | | | | | | | +--------+---------+ + + + documented as of this encounter Visit Diagnoses Not on filedocumented in this encounter"
--- OUTSIDE RECORDS SUMMARY | ~2019-02-27 | XMS | Encounter Summary ---
Demographics + + + | Address | [address] | | | [place] [address] | + + + | Home Phone | | + + + | Preferred Language | Unknown | + + + | Marital Status | | + + + | Taoism Affiliation | 1077 | + + + [...] + | Aarti Hooks | ECON | [address] | | | | | [place] | | | | | [address] | | + + + + + Care Team Providers + +------+ + | Care Metal Ceiling Builder Name | Role | Phone | + [...] | | [address] [place], | [address] | | | | | [place] [address] | [phone] | | | | | [phone] | | | +--------+ + + + [...] [place] | | | | | | [address] | | | | | | | [...]
--- OUTSIDE RECORDS SUMMARY | ~2019-02-27 | XMS | Encounter Summary ---
Demographics + + + | Address | [address] | | | [place] [address] | + + + | Home Phone | | + + + | Preferred Language | Unknown | + + + | Marital Status | | + + + | Mormonism Affiliation | 1077 | + + + | Race | Unknown | + + + | Ethnic Group | Unknown | + + + Author + + + | Author | [facility] | | | and [place] | + + + | Organization | [facility] | | | and [place] | + + + | Address | Unknown | + + + | Phone | Unavailable | + + + Support + + + + + | Name | Relationship | Address | Phone | + + + + + | Aarti Sheets | ECON | [address] | | | | | [place] | | | | | [address] | | + + + + + Care Team Providers + +------+ + | Care Stadium Manager Name | Role | Phone | + +------+ + PCP | Unavailable | + +------+ + Encounter Details +--------+ + + + + | Date | Type | Department | Care Team | Description | +--------+ + + + + | 10/13/ | Hospital | [facility] | | | | 1995 - | Encounter | MED CTR GENERIC IP | | | | | | CONV DEPT [address] | | | | 08/15/ | | [place], | | | | 1995 | | [place] [address] | | | | | | [phone] | | | +--------+ + + + [...] | | | | | [place] | | | | | | [address] | | | | | | | | +--------+---------+ + + + documented as of this encounter Visit Diagnoses Not on filedocumented in this encounter"
--- OUTSIDE RECORDS SUMMARY | ~2019-02-27 | XMS | Encounter Summary ---
Demographics + + + | Address | [address] | | | [place] [address] | + + + | Home Phone | | + + + | Preferred Language | Unknown | + + + | Marital Status | | + + + | Baptism Affiliation | 1077 | + + + | Race | Unknown | + + + | Ethnic Group | Unknown | + + + Author + + + | Author | [facility] | | | and [place] | + + + | Organization | [facility] | | | and [place] | + + + | Address | Unknown | + + + | Phone | Unavailable | + + + Support + + + + + | Name | Relationship | Address | Phone | + + + + + | Aarti Hooks | ECON | [address] | | | | | [place] | | | | | [address] | | + + + + + Care Team Providers + +------+ + | Care Melt House Supervisor Name | Role | Phone | [...] 2014 | | [facility] | [address], [place] | | | | | [address] [place] | [address] [place], [place] | | | | | [address] [place], [place] | [address] | | | | | [address] | | | | | | [phone] | | | +--------+ + + + [...] [place] | | | | | | [address] | | | | | | | | +--------+---------+ + + + documented as of this encounter Visit Diagnoses Not on filedocumented in this encounter
--- OUTSIDE RECORDS SUMMARY | ~2019-02-27 | XMS | Encounter Summary ---
Demographics + + + | Address | [address] | | | [place] [address] | + + + | Home Phone | | + + + | Preferred Language | Unknown | + + + | Marital Status | | + + + | Restorationism Affiliation | 1077 | + + + [...] + | Aarti Hooks | ECON | [address] | | | | | [place] | | | | | [address] | | + + + + + Care Team Providers + +------+ + | Care Housing Specialist Name | Role | Phone | [...] (implantable | | 2018 | Visit | [facility] | E, DO [address] | cardioverter-defibri | | | | MEDICAL CLINIC [address] | [place], [place] | llator) in place | | | | [address] [place], | [address] | (Primary Dx); | | | | [place] [address] | [phone] | Allergic rhinitis | | | | [phone] | | due to other | | [...] - PACEMAKER; Surgeon: Gabe Lawton MD; Location: [facility] BEDS AT [facility] PROC[facility]URE UN[facility] Social History Social History Marital [...] | | | | [place] | | | | | | [address] | | | | | | | | +--------+---------+ + + + documented as of this encounter Visit Diagnoses + + | Diagnosis | + + | ICD (implantable cardioverter-defibrillator) in place - Primary | + + | Allergic rhinitis due to other allergic trigger, unspecified seasonality | + + documented in this encounter
--- OUTSIDE RECORDS SUMMARY | ~2019-02-27 | XMS | Encounter Summary ---
Demographics + + + | Address | [address] | | | [place] [address] | + + + | Home Phone [...] + | Aarti Hooks | ECON | [address] | | | | | [place] | | | | | [address] | | + + + + + Care Team Providers + +------+ + | Care Pumper Gauger Apprentice Name | Role | Phone | + [...] Medication Refill | | 2017 | | [facility] | E, DO [address] | | | | | MEDICAL CLINIC [address] | [place], [place] | | | | | [address] [place], | [address] | | | | | [place] [address] | [phone] | | | | | [phone] | | | +--------+--------+ + + + [...] | | | | | [place], [place] | | | | | | [address] | | | | | | | | +--------+---------+ + + + documented as of this encounter Visit Diagnoses + + | Diagnosis | + + | Allergic rhinitis due to other allergic trigger, unspecified seasonality | + + documented in this encounter"
--- OUTSIDE RECORDS SUMMARY | ~2019-02-27 | XMS | Encounter Summary ---
Demographics + + + | Address | [address] | | | [place] [address] | + + + | Home Phone | | + + + | Preferred Language | Unknown | + + + | Marital Status | | + + + | Rastafarian Affiliation | 1077 | + + + | Race | Unknown | + + + | Ethnic Group | Unknown | + + + Author + + + | Author | [facility] | | | and [place] | + + + | Organization | [facility] | | | and [place] | + + + | Address | Unknown | + + + | Phone | Unavailable | + + + Support + + + + + | Name | Relationship | Address | Phone | + + + + + | Aarti Hooks | ECON | [address] | | | | | [place] | | | | | [address] | | + + + + + Care Team Providers + +------+ + | Care Building Architectural Designer Name | Role | Phone | [...] 2018 | | [facility] | [facility] | | | | | [facility]ICAL CL[facility] [address] | | | | | | [address] [facility], | | | | | | [place] [address] | | | | | | [phone] | | | +--------+--------+ + + + [...] [place] | | | | | | [address] | | | | | | | | +--------+---------+ + + + documented as of this encounter Visit Diagnoses Not on filedocumented in this encounter"
--- OUTSIDE RECORDS SUMMARY | ~2019-02-27 | XMS | Encounter Summary ---
Demographics + + + | Address | [address] | | | [place] [address] | + + + | Home Phone | | + + + | Preferred Language | Unknown | + + + | Marital Status | | + + + | Orthodoxy Affiliation | 1077 | + + + [...] + | Aarti Hooks | ECON | [address] | | | | | [place] | | | | | [address] | | + + + + + Care Team Providers + +------+ + | Care Refrigeration Unit Repairer Name | Role | Phone | [...] | | | [facility] [address] | [place], [place] | | | | [address] [place], | [address] | | | | | [place] [address] | [phone] | | | | | [phone] | | | +--------+--------+ + + + [...] | | | | | [place], [place] | | | | | | [address] | | | | | | | | +--------+---------+ + + + documented as of this encounter Visit Diagnoses Not on filedocumented in this encounter"
--- OUTSIDE RECORDS SUMMARY | ~2019-02-27 | XMS | Encounter Summary ---
Demographics + + + | Address | [address] | | | [place] [address] | + + + | Home Phone | | + + + | Preferred Language | Unknown | + + + | Marital Status | | + + + | Advent Affiliation | 1077 | + + + | Race | Unknown | + + + | Ethnic Group | Unknown | + + + Author + + + | Author | [facility] | | | and [place] | + + + | Organization | [facility] | | | and [place] | + + + | Address | Unknown | + + + | Phone | Unavailable | + + + Support + + + + + | Name | Relationship | Address | Phone | + + + + + | Aarti Hooks | ECON | [address] | | | | | [place] | | | | | [address] | | + + + + + Care Team Providers + +------+ + | Care Program Professional Name | Role | Phone | + [...] | Blood in | | [address], | | | | | stool Colon | | [place] [address] | | | | | cancer | | [place], | | | | | screening | | [place] [id number] | | | | | Pacemaker | | Phone: | | | | | [Z95.0]Blood | | [phone] | | | | | in stool | | Fax: | | | | | [K92.1]Colon | | [phone] | | | | | cancer | | | | | | | screening | | | | | | | [Z12.11] | | | +--------+--------+ + + + + Encounter Details +--------+---------+ + + + | Date | Type | Department | Care Team | Description | +--------+---------+ + + + | 02/22/ | Surgery | [facility] | Gabe Lawton MD | EGD / COLONOSCOPY | | 2014 | | MED CTR MP INTRA OP | [address], [place] | - PACEMAKER | | | | [address] | [address] [place], [place] | | | | | [place], [place] | [address] | | | | | [address] | | | | | | [phone] | | | +--------+---------+ + + + [...] | | | | | [place] | | | | | | [address] | | | | | | | [...] [address] | [place] | [phone] | | [facility] | | [address] | | | - LABORATORY | | | | + + + + + EGD (02/22/2015 8:55 AM PST) + + | Specimen | + + | | + + + + -+ | Narrative | Performed At | + + -+ | | [facility] | | GastroenterologyPatient Name: Adis HooksProcedure Date: 02/22/2015 | [facility] | | 8:55 AMMRN: [id number] #: [id number] of : | | | 1960dmit Type: AmbulatoryAge: 54Room: [facility] 01Gender: MaleNote | | | Status: FinalizedAttending MD: Gabe Lawton, MDProcedure: | | | Upper GI endoscopyIndications: Heme positive | | | stoolProviders: Gabe Lawton MD, Kerry Fall | | | NIKITA Goldberg, Angie Jackson, | | | Process Development Associate, Renard Chow MD (Anesthesia | | | [...] the anesthesiologist and | | | the furniture technician in the endoscopy suite. Mental Status [...] Scope In: 9:09:15 AMScope Out: 9:12:40 AM [facility]. | | | [facility], [address] [place] [address] | | | [phone] | | | - Continue present medications. [...] |Scope Out: 9:12:40 AM | | | [facility]. [facility], [address] [place] [address] | | | [address] | | + + -+ + +---------+ [...] Date: 02/22/2015 | [facility] | | 8:55 [facility]: [id number] #: [id number] of : | | | 1Admit Type: AmbulatoryAge: 54Room: [facility] 01Gender: MaleNote | | | Status: FinalizedAttending MD: Gabe Lawton MDProcedure: | | | ColonoscopyIndications: Screening for colorectal malignant | | | neoplasmProviders: Gabe Lawton MD, Kerry Fall | | | NIKITA Goldberg, Angie Jackson, | | | Process Development Associate, Renard Chow MD (Anesthesia | | | [...] the anesthesiologist and the | | | furniture technician in the endoscopy suite. Mental Status [...] AMScope Out: 9:23:26 AM | | | Merged With [facility], [address] [place], [place] | | | [address] | | | anti-inflammatory drugs for 7 [...] |Scope Out: 9:23:26 AM | | | Merged With [facility], [address] , [place], [place] | | | [address] | | + + -+ + +---------+ [...] POLYP SPECIMEN SOURCE: A. SIGMOID POLYP | ID PATHOLOGY | | CLINICAL HISTORY: Z95.0 (presence [...] | | | Tubular adenoma (1 fragment). JVR:[facility]:C2NR GROSS | | | DESCRIPTION: Received in formalin labeled "Adis Sheets" and "sigmoid | | | polyp" on the requisition is a 0.3 x 0.3 x 0.2 cm pink-quintero tissue | | | fragment, submitted, all in (A1). [facility] | | | LABORATORY: Tissue processing and slide preparation were performed by | | | [facility], [address], [place] [address] | | | (University Manager: Easton Diallo M.D. CLIA#: [id number]). | | | Professional interpretation was performed by [facility], | | | Merged With [facility], [address] [facility] | | | [place] [address] (University Manager: Easton Diallo M.D.; CLIA#: | | | [id number]). Diagnostician: Esaton Diallo MD Pathologist | | | Electronically [...]
--- OUTSIDE RECORDS SUMMARY | ~2019-02-27 | XMS | Encounter Summary ---
Demographics + + + | Address | [address] | | | [place] [address] | + + + | Home Phone | | + + + | Preferred Language | Unknown | + + + | Marital Status | | + + + | Hinduism Affiliation | 1077 | + + + [...] + | Aarti Hooks | ECON | [address] | | | | | [place] | | | | | [address] | | + + + + + Care Team Providers + +------+ + | Care Habitat Conservation Planner Name | Role | Phone | + [...] Medication Refill | | 2018 | | [facility] | E, DO [address] | | | | | MEDICAL CLIN[facility] [address] | [place], [place] | | | | | [address] [place], | [address] | | | | | [place] [address] | [phone] | | | | | [phone] | | | +--------+--------+ + + + [...] | | | | | [place], [place] | | | | | | [address] | | | | | | | | +--------+---------+ + + + documented as of this encounter Visit Diagnoses Not on filedocumented in this encounter"
--- OUTSIDE RECORDS SUMMARY | ~2019-02-27 | XMS | Clinical Summary ---
Demographics + + + | Address | [address] | | | [place] [address] | + + + | Home Phone | | + + + | Preferred Language | Unknown | + + + | Marital Status | | + + + | Gnosticism Affiliation | Unknown | + + + | Race | Unknown | + + + | Ethnic Group | Unknown | + + + Author + + + | Author | [facility] (Historical as of | | | 10-17-18) | + + + | Organization | [facility] (Historical as of | | | 10-17-18) [...] Team Providers + +------+ + | Care Certified Orthoptist Name | Role | Phone | + [...] | 01/23/2015Last Assessment & Plan: Device at [facility]. Gen change | | scheduled for 01/23 [...] | | | | | | [place] [address] | | | | | | [phone] | | | | | | | [...] | | | + +--------+ +------+-------+---------+ | [facility] | PROVID | [id number] | PPO | | | | PLAN [...] + +--------+ +--------+ + + | ADIS KLNIE O | Person | Self | [birth year] | Work: | [address] | | | al/Lee | | 1960 | [phone] [place] | | | [place] | | | [address] Home: | [address] | | | | | | | | | | | | | [phone] | | | | | | [phone] | | + +--------+ +--------+ + +
--- OUTSIDE RECORDS SUMMARY | ~2019-02-27 | XMS | Encounter Summary ---
Demographics + + + | Address | [address] | | | [place] [address] | + + + | Home Phone [...] + | Aarti Hooks | ECON | [address] | | | | | [place] | | | | | [address] | | + + + + + Care Team Providers + +------+ + | Care Conduit Mechanic Name | Role | Phone | [...] left | | 2019 | Visit | [facility] | [facility], [address] | lower limb (Primary | | | | MEDICAL [facility] [address] | [address] [place] | Dx) | | | | [address] [place], | [place] [address] | | | | | [place] [address] | [phone] | | | | | [phone] | | | +--------+---------+ + + + [...] made to ensure accuracy. However, inadvertent computerized assembly machine operator errors may be pre sent documented constantine peguero this encounter Plan of Treatment +--------+---------+ + + + | Date | Type | Specialty | Care Team | Description | +--------+---------+ + + + | 09/21/ | Office | Cardiology | Toni Durand, | | | 2019 | Visit | | MD Jesus RUGGIERO | | | | | | [place], [place] | | | | | | [address] | | | | | | | | +--------+---------+ + + + documented as of this encounter Visit Diagnoses + + | Diagnosis | + + | Cellulitis of left lower limb - Primary | + + documented in this encounter
--- OUTSIDE RECORDS SUMMARY | ~2019-02-27 | XMS | Encounter Summary ---
Demographics + + + | Address | [address] | | | [place] [address] | + + + | Home Phone | | + + + | Preferred Language | Unknown | + + + | Marital Status | | + + + | Scientologist Affiliation | 1077 | + + + [...] + | Aarti Hooks | ECON | [address] | | | | | [place] | | | | | [address] | | + + + + + Care Team Providers + +------+ + | Care Ambulance Dispatcher Name | Role | Phone | + [...] | | | MEDICAL [facility] [address] | [place], [place] | | | | | [address] [place], | [address] | | | | | [place] [address] | [phone] | | | | | [phone] | | | +--------+--------+ + + + [...] [place] | | | | | | [address] | | | | | | | | +--------+---------+ + + + documented as of this encounter Visit Diagnoses Not on filedocumented in this encounter"
--- OUTSIDE RECORDS SUMMARY | ~2019-02-27 | XMS | Encounter Summary ---
Demographics + + + | Address | [address] | | | [place] [address] | + + + | Home Phone | | + + + | Preferred Language | Unknown | + + + | Marital Status | | + + + | Yazdanism Affiliation | 1077 | + + + | Race | Unknown | + + + | Ethnic Group | Unknown | + + + Author + + + | Author | [facility] | | | and [place] | + + + | Organization | [facility] | | | and [place] | + + + | Address | Unknown | + + + | Phone | Unavailable | + + + Support + + + + + | Name | Relationship | Address | Phone | + + + + + | Aarti Hooks | ECON | [address] | | | | | [place] | | | | | [address] | | + + + + + Care Team Providers + +------+ + | Care Front End Developer Designer Name | Role | Phone | [...] [place] | | | | | | [address] | [address] Phone: | | | | | | Phone: | [phone] | | | | | | [phone] | Fax: | | | | | | Fax: | [phone] | | | | | | [phone] | | + + + + + [...] right | | 2019 | Visit | [facility] | Janice, [address] | wrist (Primary Dx); | | | | MEDICAL CL[facility] [address] | [address] [place] | Need for influenza | | | | [address] [place], | [place] [address] | vaccination | | | | [place] [address] | [phone] | | | | | [phone] | | | | | | | Raul Pate, | | | | | | DO [address] | | | | | | [place], [place] | | | | | | [address] | | | | | | [phone] | | | | | | | [...] PACEMAKER; Surgeon: Gabe Lawton MD; [facility]: [facility] PROCEDURE UNIT OTHER SURGICAL HISTORY Right HARDWARE [...] file Gets together: Not on file Attends sabianism service: Not on file Active member of [...] This documentation prepared by Frieda Barragan medical imaging specialist. All aspects of this chart review [...] | | | | [place] | | | | | | [address] | | | | | | | [...]
--- OUTSIDE RECORDS SUMMARY | ~2019-02-27 | XMS | Clinical Summary ---
Demographics + + + | Address | [address] | | | [place] [address] | + + + | Home Phone [...] + | Aarti Hooks | ECON | [address] | | | | | [place] | | | | | [address] | | + + + + + Care Team Providers + +------+ + | Care Sheriffs Officer Name | Role | Phone | + [...] | | 2019 | | | CC FINISHER ACCORDION | Pre-fill | +--------+ + + + [...] | + + + + | INFLUENZA, [id number], | 02/17/2009 | | | LIVE ATTENUATED [...] | | | | | [place] | | | | | | [address] | | | | | | | [...] Pate DO : 1960MRN: | | | [id number] Primary cardiology provider: Toni Retanabrushton Primary | | | electrophysiology provider: None Device electronic science teacher: [employer] | | | Device type: Single chamber [...] | | Gio DO Herlinda : 1960MRN: [id number] Primary cardiology provider: Toni | | [facility] Primary electrophysiology provider: Polly Device electronic science teacher: [employer] | | type: Single chamber (Ventricular)Battery Longevity: [...] +--------+ +---------+--------+ | [employer] | PACIFI | [id number] | | [phone] | | PPO | | | [employer]OURC | | 019-Pr | 2 | | | | | E | | esent | | | | | | FIRST | | | | | | | | CHOICE | | | | | | + +--------+ +--------+ +---------+--------+ | [employer] | PACIFI | [id number] | | [phone] | | Indemn | | | CSOURC [...] Person | Self [birth year] | | [address] | | | al/Lee | | 1961 | [phone] | [place] | | | [place] | | | 5 (Home) | [address] | | | | | | [phone] | | | | | | | 9 (Work) | | + +--------+ +--------+ + + | Adis Hooks Phillip | Person | Self | [birth year] | | [address] | | | al/Fam | | 1961 | [phone] | [place], [place] | | | [place] | | | 5 (Home) | [address] | | | | | | [phone] | | | | | | | 9 (Work) | | + +--------+ +--------+ + + | Adis Hooks Otis | Person | Self | [birth year] | | [address] | | | al/Fam | | 1961 | [phone] | [place], [place] | | | [place] | | | 5 (Home) | [address] | | | | | | [phone] | | | | | | | 9 (Work) | | + +--------+ +--------+ + + Advance Directives + + + + + | Type | Date Recorded | Patient | Explanation | | | | District Fire Management Officer | | + + + + + | Power of | | | | | Director Sales Training | | | | + + + + + | Advance | 02/25/2019 | | | | Directive | 1:22 PM | | | + + + + +
--- OUTSIDE RECORDS SUMMARY | ~2019-02-27 | XMS | Encounter Summary ---
Demographics + + + | Address | [address] | | | [place] [address] | + + + | Home Phone | | + + + | Preferred Language | Unknown | + + + | Marital Status | | + + + | Presybeterian Affiliation | 1077 | + + + | Race | Unknown | + + + | Ethnic Group | Unknown | + + + Author + + + | Author | [facility] | | | and [place] | + + + | Organization | [facility] | | | and [place] | + + + | Address | Unknown | + + + | Phone | Unavailable | + + + Support + + + + + | Name | Relationship | Address | Phone | + + + + + | Aarti Hooks | ECON | [address] | | | | | [place] | | | | | [address] | | + + + + + Care Team Providers + +------+ + | Care Fagot Heater Helper Name | Role | Phone | [...] Closed | | | Diagnoses | | Harri, | | | | | Pacemaker | | Gabe Longoria MD | | | | | Blood in | | [address], | | | | | stool Colon | | [address] | | | | | cancer | | [place], | | | | | screening | | [place] [address] | | | | | Pacemaker | | Phone: | | | | | [Z95.0]Blood | | [phone] | | | | | in stool | | Fax: | | | | | [K92.1]Colon | | [phone] | | | | | cancer | | | | | | | screening | | | | | | | [Z12.11] | | | +--------+--------+ + + + + Encounter Details +--------+ + + + + | Date | Type | Department | Care Team | Description | +--------+ + + + + | 02/22/ | Anesthesia | [facility] | Renard Chow MD | | | 2014 | Event | MED CTR MP INTRA OP | [address] | | | | | [address] | [place] | | | | | [place] | [address] | | | | | [address] | [phone] | | | | | [phone] | | | +--------+ + + + + Anesthesia Record + + + + + | Procedure Name | Responsible | Anesthesia Start | Anesthesia Stop Time | | | Anesthesiologist | Time | | + + + + + | EGD / [facility] | Renard Chow MD | 02/22/15 0855 | 02/22/15 0932 | | - PACEMAKER (N/A ) | | | | + + + + + +----+---+ + + | Da | T | Event | Comment | | te | i | | | | | m | | | | | e | | | +----+---+ + + | 12 | 0 | | | | /2 | 8 | | | | 3/ | 5 | | | | 20 | 4 | | | | 15 | | | | +----+---+ + + | | 0 | An Checkout | Pre-use anesthesia machine/equipment checkout. | | | 8 | | | | | 5 | | | | | 4 | | | +----+---+ + + | | 0 | An Start | Reassessment prior to anesthesia induction/procedure. | | | 8 | | | | | 5 | | | | | 5 | | | +----+---+ + + | | 0 | An | | | | 8 | Induction | | | | 5 | | | | | 9 | | | +----+---+ + + | | 0 | Breathing | | | | 9 | Spontaneous | | | | 0 | ly | | | | 0 | | | +----+---+ + + | | 0 | an stop | | | | 9 | data | | | | 2 | | | | | 7 | | | +----+---+ + + | | 0 | An Stop | Patient handed off to recovery nurse. | | | 3 | | | | | 2 | | | +----+---+ + + +------+ | Meds | +------+ + + + | Name | Total | + + + | propofol | 120 mg | + + + | propofol | 349.05 mg | + + + | lidocaine 2% | 50 mg | + + + | lactated ringers (LR) infusion | 500 mL | + + + + + | No agents on file. | + + + + | No blood administrations on file. | + + +--------+ + + + | Type | Details | Placement | Removal | +--------+ + + + | Periph | 02/22/15; 08; [id number] | 02/22/15824 by | 02/22/15 1038 by | | eral | catheter system; 20 gauge, 1 03/06 | TICO DUNN | Raeann E | | IV | in length; intradermal injection, | | NIKITA Olmedo | | | topical anesthetic spray | | | | | applied, tolerated well; no | | | | | longer indicated, removed per | | | | | policy/procedure, catheter/device | | | | | intact; healing within | | | | | expectations; 02/22/15; 1038 | | | +--------+ + + + | [READ | 02/22/15; 0855; 05/25/18 | 02/22/15 08 by | 05/25/183 by | | ONLY] | (Removed/Completed by utility); | Renard Chow MD | User Epic | | | 1643 (Removed/Completed by | | | | [facility] | Geomagic) | | | | eral | | | | | IV - | | | | | Single | | | | | Lumen | | | | | | | | | +--------+ + + + documented in this encounter Social History + +-------+ +--------+------+ | Tobacco [...] | | 2020 | Visit | | [address] | | | | | | [place], [place] | | | | | | [address] | | | | | | | | +--------+---------+ + + + documented as of this encounter Visit Diagnoses Not on filedocumented in this encounter Administered Medications + +---------+ [...] +---------+ +---+-------+---+ +---+---+ | | | +---+---+ + +-------+ +-------+---+---+ | lidocaine (PF) 2% injection | Given | 02/23/20 | 50 mg | | | | Intravenous, PRN, Starting Wed | | 15 8:59 | | | | | 02/22/15 at 0859, Anesthesia | | AM PST | | | | | Intra-op | | | | | | + +-------+ +-------+---+---+ +---+---+ | | | +---+---+ + +-------+ +--------+---+---+ | propofol (DIPRIVAN) injection | Given | 02/23/20 | 120 mg | | | | Intravenous, PRN, Starting Wed | | 15 9:00 | | | | | 02/22/15 at 0900, Anesthesia | | AM PST | | | | | Intra-op | | | | | | + +-------+ +--------+---+---+ +---+---+ | | | +---+---+ + + + + +-------+---+ | propofol (DIPRIVAN) injection | Rate/Dos | 02/23/20 | 140 | 81.9 | | | Intravenous, CONTINUOUS PRN, | e Change | 15 9:14 | mcg/kg/m | mL/hr | | | Starting 02/22/15 at 0900, | | AM PST | in | | | | Anesthesia Intra-op | | | | | | + + + + +-------+---+ + + + +--------+---+ | Rate/Dose Change | 02/23/20 | 180 | 105.3 | | | | 15 9:03 | mcg/kg/m | mL/hr | | | | AM PST | in | | | + + + +--------+---+ | Rate/Dose Change | 12/23/20 | 160 | 93.6 | | | | 15 9:02 | mcg/kg/m | mL/hr | | | | AM PST | in | | | + + + +--------+---+ +---+---+ | | | +---+---+ documented in this encounter"
--- OUTSIDE RECORDS SUMMARY | ~2019-02-27 | XMS | Encounter Summary ---
Demographics + + + | Address | [address] | | | [place] [address] | + + + | Home Phone [...] + | Aarti Hooks | ECON | [address] | | | | | [place] | | | | | [address] | | + + + + + Care Team Providers + +------+ + | Care Retail Merchandiser Name | Role | Phone | + [...] | 2018 | | [facility] | E, DO [address] | | | | | MEDICAL CLINIC [address] | [place], [place] | | | | | [address] [place], | [address] | | | | | [place] [address] | [phone] | | | | | [phone] | | | +--------+--------+ + + + [...] [place] | | | | | | [address] | | | | | | | | +--------+---------+ + + + documented as of this encounter Visit Diagnoses Not on filedocumented in this encounter"
--- OUTSIDE RECORDS SUMMARY | ~2019-02-27 | XMS | Encounter Summary ---
Demographics + + + | Address | [address] | | | [place] [address] | + + + | Home Phone [...] + | Aarti Sheets | ECON | [address] | | | | | [place] | | | | | [address] | | + + + + + Care Team Providers + +------+ + | Care Union Contract Representative Name | Role | Phone | + +------+ + PCP | Unavailable | + +------+ + Encounter Details +--------+ + + + + | Date | Type | Department | Care Team | Description | +--------+ + + + + | 04/07/ | Hospital | [facility] | Oneal Cuenca MD | | | 1998 - | Encounter | MED CTR GENERIC IP | [address] | | | | | CONV DEPT [address] | [place], [place] | | | 04/10/ | | [place], | [address] | | | 1998 | | [place] [address] | | | | | | [phone] | | | +--------+ + + + [...] [place] | | | | | | [address] | | | | | | | | +--------+---------+ + + + documented as of this encounter Visit Diagnoses Not on filedocumented in this encounter"
--- OUTSIDE RECORDS SUMMARY | ~2019-02-27 | XMS | Encounter Summary ---
Demographics + + + | Address | [address] | | | [place] [address] | + + + | Home Phone | | + + + | Preferred Language | Unknown | + + + | Marital Status | | + + + | Worship Affiliation | 1077 | + + + | Race | Unknown | + + + | Ethnic Group | Unknown | + + + Author + + + | Author | [facility] | | | and [place] | + + + | Organization | [facility] | | | and [place] | + + + | Address | Unknown | + + + | Phone | Unavailable | + + + Support + + + + + | Name | Relationship | Address | Phone | + + + + + | Aarti Sheets | ECON | [address] | | | | | [place] | | | | | [address] | | + + + + + Care Team Providers + +------+ + | Care Hog Raiser Name | Role | Phone | + [...] MED CTR GENERIC IP | [address] | | | | | CONV DEPT [address] | [place], [place] | | | 04/10/ | | [place], | [address] | | | 1998 | | [place] [address] | | | | | | [phone] | | | +--------+ + + + [...] [place] | | | | | | [address] | | | | | | | | +--------+---------+ + + + documented as of this encounter Visit Diagnoses Not on filedocumented in this encounter"
--- OUTSIDE RECORDS SUMMARY | ~2019-02-27 | XMS | Encounter Summary ---
Demographics + + + | Address | [address] | | | [place] [address] | + + + | Home Phone [...] + | Aarti Hooks | ECON | [address] | | | | | [place] | | | | | [address] | | + + + + + Care Team Providers + +------+ + | Care General Utility Worker Name | Role | Phone | [...] | Blood in | | [address], | | | | | stool Colon | | [address] | | | | | cancer | | [place], | | | | | screening | | [place] [address] | | | | | Pacemaker | | Phone: | | | | | [Z95.0]Blood | | [phone] | | | | | in stool | | Fax: | | | | | [K92.1]Colon | | [phone] | | | | | cancer | | | | | | | screening | | | | | | | [Z12.11] | | | +--------+--------+ + + + + Encounter Details +--------+---------+ + + + | Date | Type | Department | Care Team | Description | +--------+---------+ + + + | 02/22/ | Surgery | [facility] | Gabe Lawton MD | EGD / COLONOSCOPY | | 2014 | | MED CTR MP INTRA OP | [address], [place] | - PACEMAKER | | | | [address] | [address] [place], [place] | | | | | [place], [place] | [address] | | | | | [address] | | | | | | [phone] | | | +--------+---------+ + + + [...] | | | | | [place] | | | | | | [address] | | | | | | | [...] r pylori Ag | | | [facility] | | | | | | MEDICAL [...] [address] | [place] | [phone] | | [facility] | | [address] | | | - LABORATORY | | | | + + + + + EGD (02/22/2015 8:55 AM PST) + + | Specimen | + + | | + + + + -+ | Narrative | Performed At | + + -+ | | [facility] | | GastroenterologyPatient Name: Adis HooksProcedure Date: 02/22/2015 | [facility] | | 8:55 AMMRN: [id number] #: [id number] of : | | | 1960dmit Type: AmbulatoryAge: 54Room: [facility] 01Gender: MaleNote | | | Status: FinalizedAttending MD: Gabe Lawton, MDProcedure: | | | Upper GI endoscopyIndications: Heme positive | | | stoolProviders: Gabe Lawton MD, Kerry Fall | | | NIKITA Goldberg, Angie Jackson, | | | Insurance Loss Assessor, Renard Chow MD (Anesthesia | | | [...] the anesthesiologist and | | | the auto repair technician in the endoscopy suite. Mental Status [...] Scope In: 9:09:15 AMScope Out: 9:12:40 AM [facility]. | | | [facility] [address], [address] [place] [address] | | | [phone] | | | - Continue present medications. [...] |Scope Out: 9:12:40 AM | | | [facility]. [facility] [address], [address] [place] [address] | | | [address] | | + + -+ + +---------+ [...] Date: 02/22/2015 | [facility] | | 8:55 [facility] TUCSONN: [id number] #: [id number] of : | | | 1Admit Type: AmbulatoryAge: 54Room: [facility] 01Gender: MaleNote | | | Status: FinalizedAttending MD: Gabe Lawton MDProcedure: | | | ColonoscopyIndications: Screening for colorectal malignant | | | neoplasmProviders: Gabe Lawton MD, Kerry Fall | | | NIKITA Goldberg, Angie Jackson, | | | Insurance Loss Assessor, Renard Chow MD (Anesthesia | | | [...] the anesthesiologist and the | | | auto repair technician in the endoscopy suite. Mental Status [...] AMScope Out: 9:23:26 AM | | | [facility], [address] [place], [place] | | | [address] | | | anti-inflammatory drugs for 7 [...] |Scope Out: 9:23:26 AM | | | [facility], [address] , [place], [place] | | | [address] | | + + -+ + +---------+ [...] POLYP SPECIMEN SOURCE: A. SIGMOID POLYP | MA PATHOLOGY | | CLINICAL HISTORY: Z95.0 (presence [...] Tubular adenoma (1 fragment). JVR:[facility]:C2NR GROSS | | | DESCRIPTION: Received in formalin labeled "Adis Sheets" and "sigmoid | | | polyp" on the requisition is a 0.3 x 0.3 x 0.2 cm pink-quintero tissue | | | fragment, submitted, all in (A1). ka:JVR:[facility] PERFORMING | | | LABORATORY: Tissue processing and slide preparation were performed by | | | [facility], [address] [facility], [place] [address] | | | (Record Keeper: Easton Diallo M.D. CLIA#: [id number]). | | | Professional interpretation was performed by [facility], | | | [facility], [address] [facility] | | | [place] [address] (Record Keeper: Easton Diallo M.D.; CLIA#: | | | [id number]). Diagnostician: Easton Diallo MD Pathologist | | [...]
--- OUTSIDE RECORDS SUMMARY | ~2019-02-27 | XMS | Encounter Summary ---
Demographics + + + | Address | [address] | | | [place] [address] | + + + | Home Phone [...] + | Aarti Hooks | ECON | [address] | | | | | [place] | | | | | [address] | | + + + + + Care Team Providers + +------+ + | Care [employer] League [employer] Umpire Name | Role | Phone | + [...] | | [address] [place], | [address] | | | | | [place] [address] | [phone] | | | | | [phone] | | | +--------+ + + + [...] [place] | | | | | | [address] | | | | | | | | +--------+---------+ + + + documented as of this encounter Visit Diagnoses Not on filedocumented in this encounter"
--- OUTSIDE RECORDS SUMMARY | ~2019-02-27 | XMS | Clinical Summary ---
Demographics + + + | Address | [address] | | | [place] [address] | + + + | Home Phone | | + + + | Preferred Language | Unknown | + + + | Marital Status | | + + + | Jehovah'S Witness Affiliation | Unknown | + + + | Race | Unknown | + + + | Ethnic Group | Unknown | + + + Author + + + | Author | [employer] [facility] (Historical as of | | | 10-17-18) | + + + | Organization | [facility] (Historical as of | | | 10-17-18) [...] Team Providers + +------+ + | Care Paint Stock Clerk Name | Role | Phone | + [...] | 01/23/2015Last Assessment & Plan: Device at [facility]. Gen change | | scheduled for 01/23 [...] | | | | | | [place] [address] | | | | | | [phone] | | | | | | | [...] | | | + +--------+ +------+-------+---------+ | [facility] | PROVID | [id number] | PPO | | | | PLAN [...] | Self | [birth year] | Work: | [address] | | | al/Lee | | 1960 | [phone] [place] | | | [place] | | | [address]: | [address] | | | | | | | | | | | | | [phone] | | | | | | [phone] | | + +--------+ +--------+ + +
--- OUTSIDE RECORDS SUMMARY | ~2019-02-27 | XMS | Encounter Summary ---
Demographics + + + | Address | [address] | | | [place] [address] | + + + | Home Phone | | + + + | Preferred Language | Unknown | + + + | Marital Status | | + + + | Islam Affiliation | 1077 | + + + | Race | Unknown | + + + | Ethnic Group | Unknown | + + + Author + + + | Author | [facility] | | | and [place] | + + + | Organization | [facility] | | | and [place] | + + + | Address | Unknown | + + + | Phone | Unavailable | + + + Support + + + + + | Name | Relationship | Address | Phone | + + + + + | Aarti Hooks | ECON | [address] | | | | | [place] | | | | | [address] | | + + + + + Care Team Providers + +------+ + | Care Chief Engineer Research Name | Role | Phone | + [...] | 2018 | | [facility] | E, DO [address] | | | | | MEDICAL CLINIC [address] | [place], [place] | | | | | [address] [place], | [address] | | | | | [place] [address] | [phone] | | | | | [phone] | | | +--------+--------+ + + + [...] [place] | | | | | | [address] | | | | | | | | +--------+---------+ + + + documented as of this encounter Visit Diagnoses Not on filedocumented in this encounter"
--- OUTSIDE RECORDS SUMMARY | ~2019-02-27 | XMS | Encounter Summary ---
Demographics + + + | Address | [address] | | | [place] [address] | + + + | Home Phone | | + + + | Preferred Language | Unknown | + + + | Marital Status | | + + + | Spiritism Affiliation | 1077 | + + + [...] + | Aarti Hooks | ECON | [address] | | | | | [place] | | | | | [address] | | + + + + + Care Team Providers + +------+ + | Care Wire Stitcher Name | Role | Phone | + [...] | | [facility] | E, DO [address] | | | | | MEDICAL CLINIC [address] | [place], [place] | | | | | [address] [place], | [address] | | | | | [place] [address] | [phone] | | | | | [phone] | | | +--------+--------+ + + + [...] | | | | | [place], [place] | | | | | | [address] | | | | | | | | +--------+---------+ + + + documented as of this encounter Visit Diagnoses Not on filedocumented in this encounter"
--- OUTSIDE RECORDS SUMMARY | ~2019-02-27 | XMS | Encounter Summary ---
Demographics + + + | Address | [address] | | | [place] [address] | + + + | Home Phone | | + + + | Preferred Language | Unknown | + + + | Marital Status | | + + + | Protestant Affiliation | 1077 | + + + [...] + | Aarti Hooks | ECON | [address] | | | | | [place] | | | | | [address] | | + + + + + Care Team Providers + +------+ + | Care Inside Sales Professional Name | Role | Phone | [...] | Blood in | | [address], | | | | | stool Colon | | [address] | | | | | cancer | | [place], | | | | | screening | | [place] [address] | | | | | Pacemaker | | Phone: | | | | | [Z95.0]Blood | | [phone] | | | | | in stool | | Fax: | | | | | [K92.1]Colon | | [phone] | | | | | cancer | | | | | | | screening | | | | | | | [Z12.11] | | | +--------+--------+ + + + + Encounter Details +--------+ + + + + | Date | Type | Department | Care Team | Description | +--------+ + + + + | 02/22/ | Anesthesia | [facility] | Renard Chow MD | | | 2014 | Event | MED CTR MP INTRA OP | [address] | | | | | [address] | [place] | | | | | [place] | [address] | | | | | [address] | [phone] | | | | | [phone] | | | +--------+ + + + [...] + + | Periph | 02/22/15; 08; [id number] | 02/22/15824 by | 02/22/15 1038 by [...] 1643 (Removed/Completed by | | | | [facility] | [facility]) | | | | eral | | [...] | | | | | [place], [place] | | | | | | [address] | | | | | | | [...]
--- OUTSIDE RECORDS SUMMARY | ~2019-02-27 | XMS | Encounter Summary ---
Demographics + + + | Address | [address] | | | [place] [address] | + + + | Home Phone [...] + | Aarti Hooks | ECON | [address] | | | | | [place] | | | | | [address] | | + + + + + Care Team Providers + +------+ + | Care Retail Event Coordinator Name | Role | Phone | + [...] | Blood in | | [address], | | | | | stool Colon | | [address] | | | | | cancer | | [place], | | | | | screening | | [place] [address] | | | | | Pacemaker | | Phone: | | | | | [Z95.0]Blood | | [phone] | | | | | in stool | | Fax: | | | | | [K92.1]Colon | | [phone] | | | | | cancer | | | | | | | screening | | | | | | | [Z12.11] | | | +--------+--------+ + + + + Encounter Details +--------+---------+ + + + | Date | Type | Department | Care Team | Description | +--------+---------+ + + + | 02/22/ | Surgery | [facility] | Gabe Lawton MD | EGD / COLONOSCOPY | | 2014 | | MED CTR MP INTRA OP | [address], [place] | - PACEMAKER | | | | [address] | [address] [place], [place] | | | | | [place], [place] | [address] | | | | | [address] | | | | | | [phone] | | | +--------+---------+ + + + [...] | | | | | [place] | | | | | | [address] | | | | | | | [...] r pylori Ag | | | [facility] | | | | | | [...] [address] | [place] | [phone] | | [facility] | | [address] | | | - LABORATORY | | | | + + + + + EGD (02/22/2015 8:55 AM PST) + + | Specimen | + + | | + + + + -+ | Narrative | Performed At | + + -+ | | [facility] | | GastroenterologyPatient Name: Adis HooksProcedure Date: 02/22/2015 | [facility] | | 8:55 AMMRN: [id number] #: [id number] of : | | | 1960dmit Type: AmbulatoryAge: 54Room: [facility] 01Gender: MaleNote | | | Status: FinalizedAttending MD: Gabe Lawton, MDProcedure: | | | Upper GI endoscopyIndications: Heme positive | | | stoolProviders: Gabe Lawton MD, Kerry Fall | | | NIKITA Goldberg, Angie Jackson, | | | Repair Servicer, Renard Chow MD (Anesthesia | | | [...] the anesthesiologist and | | | the oil field technician in the endoscopy suite. Mental [...] Scope In: 9:09:15 AMScope Out: 9:12:40 AM [facility]. | | | [facility], [address] [place] [address] | | | [phone] | | | - Continue present medications. [...] |Scope Out: 9:12:40 AM | | | [facility]. [facility], [address] [place] [address] | | | [address] | | + + -+ + +---------+ [...] Date: 02/22/2015 | [facility] | | 8:55 [facility]: [id number] #: [id number] of : | | | 1Admit Type: AmbulatoryAge: 54Room: [facility] 01Gender: MaleNote | | | Status: FinalizedAttending MD: Gabe Lawton MDProcedure: | | | ColonoscopyIndications: Screening for colorectal malignant | | | neoplasmProviders: Gabe Lawton MD, Kerry Fall | | | NIKITA Goldberg, Angie Jackson, | | | Repair Servicer, Renard Chow MD (Anesthesia | | | [...] the anesthesiologist and the | | | oil field technician in the endoscopy suite. Mental [...] AMScope Out: 9:23:26 AM | | | [facility], [address], [place] | | | [address] | | | anti-inflammatory drugs for 7 [...] |Scope Out: 9:23:26 AM | | | [facility], [address] , [place], [place] | | | [address] | | + + -+ + +---------+ [...] | | | Tubular adenoma (1 fragment). JVR:[facility]:C2NR GROSS | | | DESCRIPTION: Received in formalin labeled "Adis Sheets" and "sigmoid | | | polyp" on the requisition is a 0.3 x 0.3 x 0.2 cm pink-quintero tissue | | | fragment, submitted, all in (A1). ka:JVR:[facility] PERFORMING | | | LABORATORY: Tissue processing and slide preparation were performed by | | | [facility], [address] [facility], [place] [address] | | | (Lining Stuffer: Easton Diallo M.D. CLIA#: [id number]). | | | Professional interpretation was performed by [facility], | | | [facility], [address] | | | [place] [address] (Lining Stuffer: Easton Diallo M.D.; CLIA#: | | | [id number]). Diagnostician: Easton Diallo MD Pathologist | | [...]
--- OUTSIDE RECORDS SUMMARY | ~2019-02-27 | XMS | Encounter Summary ---
Demographics + + + | Address | [address] | | | [place] [address] | + + + | Home Phone | | + + + | Preferred Language | Unknown | + + + | Marital Status | | + + + | Scientologist Affiliation | 1077 | + + + | Race | Unknown | + + + | Ethnic Group | Unknown | + + + Author + + + | Author | [facility] | | | and [place] | + + + | Organization | [facility] | | | and [place] | + + + | Address | Unknown | + + + | Phone | Unavailable | + + + Support + + + + + | Name | Relationship | Address | Phone | + + + + + | Aarti oHoks | ECON | [address] | | | | | [place] | | | | | [address] | | + + + + + Care Team Providers + +------+ + | Care Manager Wastewater Name | Role | Phone | + [...] | | [facility] | [facility] | | | | | MEDICAL CLINIC [address] | | | | | | 4TH [facility], | | | | | | [place] [address] | | | | | | [phone] | | | +--------+--------+ + + + [...] [place] | | | | | | [address] | | | | | | | | +--------+---------+ + + + documented as of this encounter Visit Diagnoses Not on filedocumented in this encounter"
--- OUTSIDE RECORDS SUMMARY | ~2019-02-27 | XMS | Encounter Summary ---
Demographics + + + | Address | [address] | | | [place] [address] | + + + | Home Phone | | + + + | Preferred Language | Unknown | + + + | Marital Status | | + + + | Mosque Affiliation | 1077 | + + + | Race | Unknown | + + + | Ethnic Group | Unknown | + + + Author + + + | Author | [facility] | | | and [place] | + + + | Organization | [facility] | | | and [place] | + + + | Address | Unknown | + + + | Phone | Unavailable | + + + Support + + + + + | Name | Relationship | Address | Phone | + + + + + | Aarti Hooks | ECON | [address] | | | | | [place] | | | | | [address] | | + + + + + Care Team Providers + +------+ + | Care Shredded Filler Hopper Feeder Name | Role | Phone | + [...] in | [address] [place], | | | | | stool | [place], [place] | [address] | | | | | Special | [address] [place] | [place], | | | | | screening | [place], [place] | [place] [address] | | | | | for | [address] | Phone: | | | | | malignant | Phone: | [phone] | | | | | neoplasms, | [phone] | Fax: | | | | | colon | Fax: | [phone] | | | | | Procedures | [phone] | | | | | | MS | | | | | | | COLONOSCOPY | | | | | | | FLX DX | | | | | | | W/COLLJ SPEC | | | | | | | WHEN PFRMD | | | | | | | MS | | | | | | | COLONOSCOPY | | | | | | | W/BIOPSY | | | | | | | SINGLE/MULTI | | | | | | | PLE MS | | | | | | | COLSC FLX | | | | | | | W/RMVL OF | | | | | | | TUMOR POLYP | | | | | | | LESION SNARE | | | | | | | TQ MS | | | | | | | ESOPHAGOGAST | | | | | | | RODUODENOSCO | | | | | | | PY TRANSORAL | | | | | | | DIAGNOSTIC | | | | | | | MS EDG | | | | | | | TRANSORAL | | | | | | | BIOPSY | | | | | | | SINGLE/MULTI | | | | | | | PLE MS | | | | | | | ANESTH,INTES | | | | | | | KALLIE,SCOPE,L | | | | | | | OW MS | | | | | | | [...] + + | 02/07/ | Telephone | [facility] | Gabe Lawton MD | Appointment | | 2014 | | GASTROENTEROLOGY | [address], [place] | (procedure ) | | | | [address] [place] | [address] | | | | | [address] [place], [place] | [address] | | | | | [address] | | | | | | [phone] | | | +--------+ + + + [...] [place] | | | | | | [id number] | | | | | | | [...]
--- OUTSIDE RECORDS SUMMARY | ~2019-02-27 | XMS | Encounter Summary ---
Demographics + + + | Address | [address] | | | [place] [address] | + + + | Home Phone | | + + + | Preferred Language | Unknown | + + + | Marital Status | | + + + | Samaritan Affiliation | 1077 | + + + [...] + | Aarti Hooks | ECON | [address] | | | | | [place] | | | | | [address] | | + + + + + Care Team Providers + +------+ + | Care Commercial Construction Superintendent Name | Role | Phone | + [...] Refill | | 2017 | | [facility] | E, DO [address] | | | | | MEDICAL CLINIC [address] | [place], [place] | | | | | [address] [place], | [address] | | | | | [place] [address] | [phone] | | | | | [phone] | | | +--------+--------+ + + + [...] [place] | | | | | | [address] | | | | | | | | +--------+---------+ + + + documented as of this encounter Visit Diagnoses Not on filedocumented in this encounter"
--- OUTSIDE RECORDS SUMMARY | ~2019-02-27 | XMS | Encounter Summary ---
Demographics + + + | Address | [address] | | | [place] [address] | + + + | Home Phone | | + + + | Preferred Language | Unknown | + + + | Marital Status | | + + + | Jewish Affiliation | 1077 | + + + | Race | Unknown | + + + | Ethnic Group | Unknown | + + + Author + + + | Author | [facility] | | | and [place] | + + + | Organization | [facility] | | | and [place] | + + + | Address | Unknown | + + + | Phone | Unavailable | + + + Support + + + + + | Name | Relationship | Address | Phone | + + + + + | Aarti Hooks | ECON | [address] | | | | | [place] | | | | | [address] | | + + + + + Care Team Providers + +------+ + | Care Normalizer Name | Role | Phone | + [...] left | | 2019 | Visit | [facility] | [facility], INSTRUCTIONAL TECHNOLOGY COORDINATOR [address] | lower limb (Primary | | | | MEDICAL CLINIC [address] | [address] [place] | Dx) | | | | [address] [place], | [place] [address] | | | | | [place] [address] | [phone] | | | | | [phone] | | | +--------+---------+ + + + [...] made to ensure accuracy. However, inadvertent computerized chest painting leader errors may be pre sent documented constantine peguero this encounter Plan of Treatment +--------+---------+ + + + | Date | Type | Specialty | Care Team | Description | +--------+---------+ + + + | 09/21/ | Office | Cardiology | Toni Durand, | | | 2019 | Visit | | MD Jesus RUGGIERO | | | | | | [place], [place] | | | | | | [address] | | | | | | | | +--------+---------+ + + + documented as of this encounter Visit Diagnoses + + | Diagnosis | + + | Cellulitis of left lower limb - Primary | + + documented in this encounter
--- OUTSIDE RECORDS SUMMARY | ~2019-02-27 | XMS | Encounter Summary ---
Demographics + + + | Address | [address] | | | [place] [address] | + + + | Home Phone | | + + + | Preferred Language | Unknown | + + + | Marital Status | | + + + | Faith Affiliation | 1077 | + + + [...] + | Aarti Hooks | ECON | [address] | | | | | [place] | | | | | [address] | | + + + + + Care Team Providers + +------+ + | Care Farm Or Ranch Animal Caretaker Name | Role | Phone | + [...] | | | MEDICAL CLIN[facility] [address] | [place], [place] | | | | | [address] [place], | [address] | | | | | [place] [address] | [phone] | | | | | [phone] | | | +--------+--------+ + + + [...] | | | | | [place], [place] | | | | | | [address] | | | | | | | | +--------+---------+ + + + documented as of this encounter Visit Diagnoses + + | Diagnosis | + + | Allergic rhinitis due to other allergic trigger, unspecified seasonality | + + documented in this encounter"
--- OUTSIDE RECORDS SUMMARY | ~2019-02-27 | XMS | Encounter Summary ---
Demographics + + + | Address | [address] | | | [place] [address] | + + + | Home Phone | | + + + | Preferred Language | Unknown | + + + | Marital Status | | + + + | Christianity Affiliation | 1077 | + + + [...] + | Aarti Hooks | ECON | [address] | | | | | [place] | | | | | [address] | | + + + + + Care Team Providers + +------+ + | Care Inside Trucker Name | Role | Phone | + [...] Insulin Syringe | | 2018 | | [facility] | CC MARKETING ASSOCIATE | Pre-fill | | | | MEDICAL CLINIC [address] | | | | | | [address]TH [facility], | | | | | | [place] [address] | | | | | | [phone] | | | +--------+--------+ + + + [...] [place] | | | | | | [address] | | | | | | | | +--------+---------+ + + + documented as of this encounter Visit Diagnoses Not on filedocumented in this encounter"
--- OUTSIDE RECORDS SUMMARY | ~2019-02-27 | XMS | Encounter Summary ---
Demographics + + + | Address | [address] | | | [place] [address] | + + + | Home Phone [...] + | Aarti Sheets | ECON | [address] | | | | | [place] | | | | | [address] | | + + + + + Care Team Providers + +------+ + | Care Bell Spinner Sousaphones Name | Role | Phone | + +------+ + PCP | Unavailable | + +------+ + Encounter Details +--------+ + + + + | Date | Type | Department | Care Team | Description | +--------+ + + + + | 10/13/ | Hospital | [facility] | | | | 1995 - | Encounter | MED CTR GENERIC IP | | | | | | CONV DEPT [address] | | | | 08/15/ | | [place], | | | | 1995 | | [place] [address] | | | | | | [phone] | | | +--------+ + + + [...] | | | | | [place] | | | | | | [address] | | | | | | | | +--------+---------+ + + + documented as of this encounter Visit Diagnoses Not on filedocumented in this encounter"
--- OUTSIDE RECORDS SUMMARY | ~2019-02-27 | XMS | Encounter Summary ---
Demographics + + + | Address | [address] | | | [place] [address] | + + + | Home Phone [...] + | Aarti Hooks | ECON | [address] | | | | | [place] | | | | | [address] | | + + + + + Care Team Providers + +------+ + | Care Admissions Manager Rn Name | Role | Phone | + [...] | | [address] [place], | [address] | | | | | [place] [address] | [phone] | | | | | [phone] | | | +--------+ + + + [...] [place] | | | | | | [address] | | | | | | | [...]
--- OUTSIDE RECORDS SUMMARY | ~2019-02-27 | XMS | Encounter Summary ---
Demographics + + + | Address | [address] | | | [place] [address] | + + + | Home Phone [...] + + | Author | [facility] | | | and [place] | + + + | Organization | [facility] | | | and [place] | + + + | Address | Unknown | + + + | Phone | Unavailable | + + + Support + + + + + | Name | Relationship | Address | Phone | + + + + + | Aarti Hooks | ECON | [address] | | | | | [place] | | | | | [address] | | + + + + + Care Team Providers + +------+ + | Care Last Picker Name | Role | Phone | + [...] | | | | [place], [place] | [address] | | | | | [address] | [phone] | | | | | [phone] | | | +--------+ + + + [...] [place] | | | | | | [address] | | | | | | | [...]
--- OUTSIDE RECORDS SUMMARY | ~2019-02-27 | XMS | Encounter Summary ---
Demographics + + + | Address | [address] | | | [place] [address] | + + + | Home Phone [...] + | Aarti Hooks | ECON | [address] | | | | | [place] | | | | | [address] | | + + + + + Care Team Providers + +------+ + | Care Call Worker Name | Role | Phone | [...] left | | 2019 | Visit | [facility] | E, DO [address] | lower limb (Primary | | | | MEDICAL CLINIC [address] | [place], [place] | Dx); Rash | | | | [address] [place], | [address] | | | | | [place] [address] | [phone] | | | | | [phone] | | | +--------+---------+ + + + [...] mood and affect. Entered by Charlie John [facility], acting as scribe for Adrián Pate D.O. [...] [place] | | | | | | [address] | | | | | | | | +--------+---------+ + + + documented as of this encounter Visit Diagnoses + + | Diagnosis | + + | Cellulitis of left lower limb - Primary | + + | Rash Rash and other nonspecific skin eruption | + + documented in this encounter
--- OUTSIDE RECORDS SUMMARY | ~2019-02-27 | XMS | Encounter Summary ---
Demographics + + + | Address | [address] | | | [place] [address] | + + + | Home Phone [...] + | Aarti Hooks | ECON | [address] | | | | | [place] | | | | | [address] | | + + + + + Care Team Providers + +------+ + | Care Cook Italian Style Food Name | Role | Phone | + [...] | | [address] [place], | [address] | | | | | [place] [address] | [phone] | | | | | [phone] | | | +--------+ + + + [...] [place] | | | | | | [address] | | | | | | | | +--------+---------+ + + + documented as of this encounter Visit Diagnoses Not on filedocumented in this encounter"
--- OUTSIDE RECORDS SUMMARY | ~2019-02-27 | XMS | Encounter Summary ---
Demographics + + + | Address | [address] | | | [place] [address] | + + + | Home Phone | | + + + | Preferred Language | Unknown | + + + | Marital Status | | + + + | Jewish Affiliation | 1077 | + + + | Race | Unknown | + + + | Ethnic Group | Unknown | + + + Author + + + | Author | [facility] | | | and [place] | + + + | Organization | [facility] | | | and [place] | + + + | Address | Unknown | + + + | Phone | Unavailable | + + + Support + + + + + | Name | Relationship | Address | Phone | + + + + + | Aarti Hooks | ECON | [address] | | | | | [place] | | | | | [address] | | + + + + + Care Team Providers + +------+ + | Care Emergency Manager Name | Role | Phone | [...] | Blood in | | [address], | | | | | stool Colon | | [address] | | | | | cancer | | [place], | | | | | screening | | [place] [address] | | | | | Pacemaker | | Phone: | | | | | [Z95.0]Blood | | [phone] | | | | | in stool | | Fax: | | | | | [K92.1]Colon | | [phone] | | | | | cancer | | | | | | | screening | | | | | | | [Z12.11] | | | +--------+--------+ + + + + Encounter Details +--------+ + + + + | Date | Type | Department | Care Team | Description | +--------+ + + + + | 02/22/ | Hospital | [facility] | Gabe Lawton MD | Special screening | | 2015 | Encounter | MED CTR MP INTRA OP | [address], [place] | for malignant | | | | [address] | [address] [place], [place] | neoplasms, colon | | | | [place], [place] | [address] | (Primary Dx); Heme | | | | [address] | | positive stool | | | | [phone] | | | +--------+ + + + [...] [place] | | | | | | [address] | | | | | | | [...] [address] | [place] | [phone] | | [facility] | | [address] | | | - LABORATORY | | | | + + + + + EGD (02/22/2015 8:55 AM PST) + + | Specimen | + + | | + + + + -+ | Narrative | Performed At | + + -+ | | [facility] | | GastroenterologyPatient Name: Adis HooksProcedure Date: 02/22/2015 | [facility] | | 8:55 AMMRN: [id number] #: [id number] of : | | | 1Admit Type: AmbulatoryAge: 54Room: [facility] 01Gender: MaleNote | | | Status: FinalizedAttending MD: Gabe Lawton, MDProcedure: | | | Upper GI endoscopyIndications: Heme positive | | | stoolProviders: Gabe Lawton MD, Kerry Fall | | | NIKITA Goldberg, Angie Jackson, | | | Ingredient Specialist, Renard Chow MD (Anesthesia | | | [...] the anesthesiologist and | | | the sterile preparation technician in the endoscopy suite. Mental Status [...] 9:09:15 AMScope Out: 9:12:40 AM [facility]. | | | [facility], [address] [place] [address] | | | [phone] | | | - Continue present medications. [...] 9:12:40 AM | | | [facility]. [facility], [address] [place] [address] | | | [address] | | + + -+ + +---------+ [...] 02/22/2015 | [facility] | | 8:55 AMMRN: [id number] #: [id number] of : | | | 1Admit Type: AmbulatoryAge: 54Room: [facility] 01Gender: MaleNote | | | Status: FinalizedAttending MD: JOSE JUAN Baileyrocedure: | | | ColonoscopyIndications: Screening for colorectal malignant | | | neoplasmProviders: Gabe Lawton MD, Kerry Fall | | | NIKITA Goldberg, Angie Jackson, | | | Ingredient Specialist, Renard Chow MD (Anesthesia | | | [...] the anesthesiologist and the | | | sterile preparation technician in the endoscopy suite. Mental Status [...] AMScope Out: 9:23:26 AM | | | Located Within [facility], [facility] [place], [place] | | | [address] | | | anti-inflammatory drugs for 7 [...] |Scope Out: 9:23:26 AM | | | [facility], [address] [facility], [place], [place] | | | [address] | | + + -+ + +---------+ [...] POLYP SPECIMEN SOURCE: A. SIGMOID POLYP | [place] PATHOLOGY | | CLINICAL HISTORY: Z95.0 (presence [...] | | | Tubular adenoma (1 fragment). JVR:[facility]:C2NR GROSS | | | DESCRIPTION: Received in formalin labeled "Adis Sheets" and "sigmoid | | | polyp" on the requisition is a 0.3 x 0.3 x 0.2 cm pink-quintero tissue | | | fragment, submitted, all in (A1). ka:JVR:[facility] PERFORMING | | | LABORATORY: Tissue processing and slide preparation were performed by | | | [facility], [address], [place] [address] | | | (Harbor Police Lieutenant: Easton Diallo M.D. CLIA#: [id number]). | | | Professional interpretation was performed by [facility], | | | Located Within [facility], [address] | | | [place] [address] (Har[employer] Police Lieutenant: Easton Diallo M.D.; CLIA#: | | | [id number]). Diagnostician: Easton Diallo MD Pathologist | | [...]
--- OUTSIDE RECORDS SUMMARY | ~2019-02-27 | XMS | Encounter Summary ---
Demographics + + + | Address | [address] | | | [place] [address] | + + + | Home Phone [...] + | Aarti Hooks | ECON | [address] | | | | | [place] | | | | | [address] | | + + + + + Care Team Providers + +------+ + | Care Manager Media Relations Name | Role | Phone | + [...] + + | 02/10/ | Procedure | [facility] | | Presence of single | | 2019 | visit | [facility]ARDI[facility] [place] | | chamber automatic | | | | [address] | | cardioverter/defibri | | | | [address] [address] | | llator (AICD) | | | | [place], [place] | | | | | | [address] | | | | | | [phone] | | | +--------+ + + + [...] | | | | | [place] | | | | | | [address] | | | | | | | [...] PACEART | | NIKITA Salinas 02/18/2019 9:30 [facility] INTER[facility]OG[facility] REPORT Name: | | | Adis Hooks PCP: Raul Pate DO : 1960MRN: | | | [id number] Primary cardiology provider: Toni Retanabeemer Primary | | | electrophysiology provider: None Device supervisor wrapping room: C2FO | | | Device type: Single chamber [...] | | Gio Pate DO : 1960MRN: [id number] Primary cardiology provider: Toni | | [facility] Primary electrophysiology provider: Polly Device supervisor wrapping room: [employer] | | type: Single chamber (Ventricular)Battery Longevity: [...]
--- OUTSIDE RECORDS SUMMARY | ~2019-02-27 | XMS | Encounter Summary ---
Demographics + + + | Address | [address] | | | [place] [address] | + + + | Home Phone | | + + + | Preferred Language | Unknown | + + + | Marital Status | | + + + | Latter-Day Affiliation | 1077 | + + + [...] + | Aarti Hooks | ECON | [address] | | | | | [place] | | | | | [address] | | + + + + + Care Team Providers + +------+ + | Care Photography Coordinator Name | Role | Phone | [...] | | | [facility] [address] | [place], [place] | | | | | [address] [place], | [address] | | | | | [place] [address] | [phone] | | | | | [phone] | | | +--------+--------+ + + + [...] [place] | | | | | | [address] | | | | | | | | +--------+---------+ + + + documented as of this encounter Visit Diagnoses Not on filedocumented in this encounter"
--- OUTSIDE RECORDS SUMMARY | ~2019-02-27 | XMS | Encounter Summary ---
Demographics + + + | Address | [address] | | | [place] [address] | + + + | Home Phone | | + + + | Preferred Language | Unknown | + + + | Marital Status | | + + + | Holiness Affiliation | 1077 | + + + | Race | Unknown | + + + | Ethnic Group | Unknown | + + + Author + + + | Author | [facility] | | | and [place] | + + + | Organization | [facility] | | | and [place] | + + + | Address | Unknown | + + + | Phone | Unavailable | + + + Support + + + + + | Name | Relationship | Address | Phone | + + + + + | Aarti Hooks | ECON | [address] | | | | | [place] | | | | | [address] | | + + + + + Care Team Providers + +------+ + | Care Vermin Exterminator Name | Role | Phone | + [...] | | [address] [place], | [address] | | | | | [place] [address] | [phone] | | | | | [phone] | | | +--------+ + + + [...] [place] | | | | | | [address] | | | | | | | | +--------+---------+ + + + documented as of this encounter Visit Diagnoses Not on filedocumented in this encounter"
--- OUTSIDE RECORDS SUMMARY | ~2019-02-27 | XMS | Encounter Summary ---
Demographics + + + | Address | [address] | | | [place] [address] | + + + | Home Phone | | + + + | Preferred Language | Unknown | + + + | Marital Status | | + + + | Jew Affiliation | 1077 | + + + | Race | Unknown | + + + | Ethnic Group | Unknown | + + + Author + + + | Author | [facility] | | | and [place] | + + + | Organization | [facility] | | | and [place] | + + + | Address | Unknown | + + + | Phone | Unavailable | + + + Support + + + + + | Name | Relationship | Address | Phone | + + + + + | Aarti Hooks | ECON | [address] | | | | | [place] | | | | | [address] | | + + + + + Care Team Providers + +------+ + | Care Marketing Copywriter Name | Role | Phone | + [...] Medication Refill | | 2017 | | [facility] | E, DO [address] | | | | | [facility] [address] | [place], [place] | | | | | [address] [place], | [address] | | | | | [place] [address] | [phone] | | | | | [phone] | | | +--------+--------+ + + + [...] | | | | | [place], [place] | | | | | | [address] | | | | | | | | +--------+---------+ + + + documented as of this encounter Visit Diagnoses + + | Diagnosis | + + | Allergic rhinitis due to other allergic trigger, unspecified seasonality | + + documented in this encounter"
--- OUTSIDE RECORDS SUMMARY | ~2019-02-27 | XMS | Encounter Summary ---
Demographics + + + | Address | [address] | | | [place] [address] | + + + | Home Phone [...] + | Aarti Hooks | ECON | [address] | | | | | [place] | | | | | [address] | | + + + + + Care Team Providers + +------+ + | Care Government Affairs Fellow Name | Role | Phone | + [...] | | [address] [place], | [address] | | | | | [place] [address] | [phone] | | | | | [phone] | | | +--------+ + + + [...] [place] | | | | | | [address] | | | | | | | | +--------+---------+ + + + documented as of this encounter Visit Diagnoses Not on filedocumented in this encounter"
--- OUTSIDE RECORDS SUMMARY | ~2019-02-27 | XMS | Encounter Summary ---
Demographics + + + | Address | [address] | | | [place] [address] | + + + | Home Phone [...] + | Aarti Sheets | ECON | [address] | | | | | [place] | | | | | [address] | | + + + + + Care Team Providers + +------+ + | Care Prototype Carpenter Name | Role | Phone | + +------+ + PCP | Unavailable | + +------+ + Encounter Details +--------+ + + + + | Date | Type | Department | Care Team | Description | +--------+ + + + + | 10/05/ | Hospital | [facility] | | | | 1994 | Encounter | MED [facility] | | | | | | [address] | | | | | | [place] | | | | | | [address] | | | | | | [phone] | | | +--------+ + + + [...] | | | | | [place], [place] | | | | | | [address] | | | | | | | | +--------+---------+ + + + documented as of this encounter Visit Diagnoses Not on filedocumented in this encounter"
--- OUTSIDE RECORDS SUMMARY | ~2019-02-27 | XMS | Encounter Summary ---
Demographics + + + | Address | [address] | | | [place] [address] | + + + | Home Phone | | + + + | Preferred Language | Unknown | + + + | Marital Status | | + + + | Advent Affiliation | 1077 | + + + | Race | Unknown | + + + | Ethnic Group | Unknown | + + + Author + + + | Author | [facility] | | | and [place] | + + + | Organization | [facility] | | | and [place] | + + + | Address | Unknown | + + + | Phone | Unavailable | + + + Support + + + + + | Name | Relationship | Address | Phone | + + + + + | Aarti Hooks | ECON | [address] | | | | | [place] | | | | | [address] | | + + + + + Care Team Providers + +------+ + | Care Multi Needle Machine Operator Name | Role | Phone [...] Medication Refill | | 2018 | | [facility] | [facility] | | | | | [facility] [address] | | | | | | [facility] [facility], | | | | | | [place] [address] | | | | | | [phone] | | | +--------+--------+ + + + [...] [place] | | | | | | [address] | | | | | | | | +--------+---------+ + + + documented as of this encounter Visit Diagnoses Not on filedocumented in this encounter"
--- OUTSIDE RECORDS SUMMARY | ~2019-02-27 | XMS | Encounter Summary ---
Demographics + + + | Address | [address] | | | [place] [address] | + + + | Home Phone [...] + | Aarti Hooks | ECON | [address] | | | | | [place] | | | | | [address] | | + + + + + Care Team Providers + +------+ + | Care Fish Farm Laborer Name | Role | Phone | [...] | Blood in | | [address], | | | | | stool Colon | | [address] | | | | | cancer | | [place], | | | | | screening | | [place] [address] | | | | | Pacemaker | | Phone: | | | | | [Z95.0]Blood | | [phone] | | | | | in stool | | Fax: | | | | | [K92.1]Colon | | [phone] | | | | | cancer | | | | | | | screening | | | | | | | [Z12.11] | | | +--------+--------+ + + + + Encounter Details +--------+ + + + + | Date | Type | Department | Care Team | Description | +--------+ + + + + | 02/22/ | Anesthesia | [facility] | Renard Chow MD | | | 2014 | Event | MED CTR MP INTRA OP | [address] | | | | | [address] | [place] | | | | | [place] | [address] | | | | | [address] | [phone] | | | | | [phone] | | | +--------+ + + + [...] + + | Periph | 02/22/15; 08; [id number] | 02/22/15824 by | 02/22/15 1038 by [...] (Removed/Completed by | | | | [facility] | [employer]) | | | | eral | | [...] | | | | | [place], [place] | | | | | | [address] | | | | | | | [...]
--- OUTSIDE RECORDS SUMMARY | ~2019-02-27 | XMS | Encounter Summary ---
Demographics + + + | Address | [address] | | | [place] [address] | + + + | Home Phone | | + + + | Preferred Language | Unknown | + + + | Marital Status | | + + + | Taoist Affiliation | 1077 | + + + | Race | Unknown | + + + | Ethnic Group | Unknown | + + + Author + + + | Author | [facility] | | | and [place] | + + + | Organization | [facility] | | | and [place] | + + + | Address | Unknown | + + + | Phone | Unavailable | + + + Support + + + + + | Name | Relationship | Address | Phone | + + + + + | Aarti Hooks | ECON | [address] | | | | | [place] | | | | | [address] | | + + + + + Care Team Providers + +------+ + | Care Grazing Aide Name | Role | Phone | + [...] | | | [facility] [address] | [place], [place] | | | | | [address] [place], | [address] | | | | | [place] [address] | [phone] | | | | | [phone] | | | +--------+--------+ + + + [...] | | | | | [place], [place] | | | | | | [address] | | | | | | | | +--------+---------+ + + + documented as of this encounter Visit Diagnoses Not on filedocumented in this encounter"
--- OUTSIDE RECORDS SUMMARY | ~2019-02-27 | XMS | Encounter Summary ---
Demographics + + + | Address | [address] | | | [place] [address] | + + + | Home Phone [...] + | Aarti Hooks | ECON | [address] | | | | | [place] | | | | | [address] | | + + + + + Care Team Providers + +------+ + | Care Associate Professor Of Radiology Name | Role | Phone | + [...] [place] | | | | | | [address] | [address] Phone: | | | | | | Phone: | [phone] | | | | | | [phone] | Fax: | | | | | | Fax: | [phone] | | | | | | [phone] | | + + + + + [...] 2019 | Visit | [facility] | Janice, [address] | wrist (Primary Dx); | | | | MEDICAL CLIN[facility] [address] | [address] [place] | Need for influenza | | | | [address] [place], | [place] [address] | vaccination | | | | [place] [address] | [phone] | | | | | [phone] | | | | | | | Raul Pate, | | | | | | DO [address] | | | | | | [place], [place] | | | | | | [address] | | | | | | [phone] | | | | | | | [...] out of clinic with out assistance. MARTÍN Posdaa CMA Sherice Raul Swati , DO - [...] - PACEMAKER; Surgeon: Gabe Lawton MD; Location: [facility] PROC[facility] OTHER SURGICAL HISTORY Right [...] file Gets together: Not on file Attends nondenominational service: Not on file Active member of [...] This documentation prepared by Frieda Barragan medical office supervisor. All aspects of this chart review ed [...] | | | | [place] | | | | | | [address] | | | | | | | [...]
--- OUTSIDE RECORDS SUMMARY | ~2019-02-27 | XMS | Clinical Summary ---
Demographics + + + | Address | [address] | | | [place] [address] | + + + | Home Phone | | + + + | Preferred Language | Unknown | + + + | Marital Status | | + + + | Bahai Affiliation | Unknown | + + + | Race | Unknown | + + + | Ethnic Group | Unknown | + + + Author + + + | Author | [email or web address] (Historical as of | | | 10-17-18) | + + + | Organization | [facility] [employer] (Historical as of | | | 10-17-18) [...] Team Providers + +------+ + | Care Green End Department Supervisor Name | Role | Phone | [...] | 01/23/2015Last Assessment & Plan: Device at [facility]. Gen change | | scheduled for 01/23 [...] | | | | | | [place] [address] | | | | | | [phone] | | | | | | | [...] | | | + +--------+ +------+-------+---------+ | [facility] | PROVID | [id number] | PPO | | | | PLAN [...] | Self | [birth year] | Work: | [address] | | | al/Lee | | 1960 | [phone] [place] | | | marcus | | | [address]: | [address] | | | | | | | | | | | | | [phone] | | | | | | 5995 | | + +--------+ +--------+ + +
--- OUTSIDE RECORDS SUMMARY | ~2019-02-27 | XMS | Encounter Summary ---
Demographics + + + | Address | [address] | | | [place] [address] | + + + | Home Phone | | + + + | Preferred Language | Unknown | + + + | Marital Status | | + + + | Hoahaoism Affiliation | 1077 | + + + | Race | Unknown | + + + | Ethnic Group | Unknown | + + + Author + + + | Author | [facility] | | | and [place] | + + + | Organization | [facility] | | | and [place] | + + + | Address | Unknown | + + + | Phone | Unavailable | + + + Support + + + + + | Name | Relationship | Address | Phone | + + + + + | Aarti Hooks | ECON | [address] | | | | | [place] | | | | | [address] | | + + + + + Care Team Providers + +------+ + | Care Chief Of Party Name | Role | Phone | + [...] Medication Refill | | 2018 | | [facility] | E, DO [address] | | | | | MEDICAL CLINIC [address] | [place], [place] | | | | | [address] [place], | [address] | | | | | [place] [address] | [phone] | | | | | [phone] | | | +--------+--------+ + + + [...] [place] | | | | | | [address] | | | | | | | | +--------+---------+ + + + documented as of this encounter Visit Diagnoses Not on filedocumented in this encounter"
--- OUTSIDE RECORDS SUMMARY | ~2019-02-27 | XMS | Encounter Summary ---
Demographics + + + | Address | [address] | | | [place] [address] | + + + | Home Phone | | + + + | Preferred Language | Unknown | + + + | Marital Status | | + + + | Jewish Affiliation | 1077 | + + + | Race | Unknown | + + + | Ethnic Group | Unknown | + + + Author + + + | Author | [facility] | | | and [place] | + + + | Organization | [facility] | | | and [place] | + + + | Address | Unknown | + + + | Phone | Unavailable | + + + Support + + + + + | Name | Relationship | Address | Phone | + + + + + | Aarti Hooks | ECON | [address] | | | | | [place] | | | | | [address] | | + + + + + Care Team Providers + +------+ + | Care Sleeve Sewer Name | Role | Phone | + [...] Medication Refill | | 2018 | | [facility] | E, DO [address] | | | | | MEDICAL CLINIC [address] | [place], [place] | | | | | [address] [place], | [address] | | | | | [place] [address] | [phone] | | | | | [phone] | | | +--------+--------+ + + + [...] | | | | | [place], [place] | | | | | | [address] | | | | | | | | +--------+---------+ + + + documented as of this encounter Visit Diagnoses Not on filedocumented in this encounter"
--- OUTSIDE RECORDS SUMMARY | ~2019-02-27 | XMS | Encounter Summary ---
Demographics + + + | Address | [address] | | | [place] [address] | + + + | Home Phone [...] + | Aarti Sheets | ECON | [address] | | | | | [place] | | | | | [address] | | + + + + + Care Team Providers + +------+ + | Care Display Carver Name | Role | Phone | + +------+ + PCP | Unavailable | + +------+ + Encounter Details +--------+ + + + + | Date | Type | Department | Care Team | Description | +--------+ + + + + | 10/05/ | Hospital | [facility] | | | | 1994 | Encounter | MED CTR EMERGENCY | | | | | | [address] | | | | | | [place] | | | | | | [address] | | | | | | [phone] | | | +--------+ + + + [...] | | | | | [place], [place] | | | | | | [address] | | | | | | | | +--------+---------+ + + + documented as of this encounter Visit Diagnoses Not on filedocumented in this encounter"
--- OUTSIDE RECORDS SUMMARY | ~2019-02-27 | XMS | Encounter Summary ---
Demographics + + + | Address | [address] | | | [place] [address] | + + + | Home Phone [...] + | Aarti Hooks | ECON | [address] | | | | | [place] | | | | | [address] | | + + + + + Care Team Providers + +------+ + | Care Refrigeration Mechanic Helper Name | Role | Phone [...] | | [facility] | [facility] | | | | | MEDICAL CLINIC [address] | | | | | | [address] [facility], | | | | | | [place] [address] | | | | | | [phone] | | | +--------+--------+ + + + [...] [place] | | | | | | [address] | | | | | | | | +--------+---------+ + + + documented as of this encounter Visit Diagnoses Not on filedocumented in this encounter"
--- OUTSIDE RECORDS SUMMARY | ~2019-02-27 | XMS | Encounter Summary ---
Demographics + + + | Address | [address] | | | [place] [address] | + + + | Home Phone [...] + | Aarti Hooks | ECON | [address] | | | | | [place] | | | | | [address] | | + + + + + Care Team Providers + +------+ + | Care Manager Clinical Applications Name | Role | Phone | + [...] (implantable | | 2018 | Visit | [facility] | E, DO [address] | cardioverter-defibri | | | | MEDICAL CLINIC [address] | [place], [place] | llator) in place | | | | [address] [place], | [address] | (Primary Dx); | | | | [place] [address] | [phone] | Allergic rhinitis | | | | [phone] | | due to other | | [...] - PACEMAKER; Surgeon: Gabe Lawton MD; Location: [facility] Social History Social History Marital [...] | | | | | [place] | | | | | | [address] | | | | | | | | +--------+---------+ + + + documented as of this encounter Visit Diagnoses + + | Diagnosis | + + | ICD (implantable cardioverter-defibrillator) in place - Primary | + + | Allergic rhinitis due to other allergic trigger, unspecified seasonality | + + documented in this encounter
--- OUTSIDE RECORDS SUMMARY | ~2019-02-27 | XMS | Encounter Summary ---
Demographics + + + | Address | [address] | | | [place] [address] | + + + | Home Phone | | + + + | Preferred Language | Unknown | + + + | Marital Status | | + + + | Jewish Affiliation | 1077 | + + + | Race | Unknown | + + + | Ethnic Group | Unknown | + + + Author + + + | Author | [facility] | | | and [place] | + + + | Organization | [facility] | | | and [place] | + + + | Address | Unknown | + + + | Phone | Unavailable | + + + Support + + + + + | Name | Relationship | Address | Phone | + + + + + | Aarti Hooks | ECON | [address] | | | | | [place] | | | | | [address] | | + + + + + Care Team Providers + +------+ + | Care Chicken And Fish Butcher Name | Role | Phone | + [...] | | | | [place], [place] | [address] | | | | | [address] | [phone] | | | | | [phone] | | | +--------+ + + + [...] [place] | | | | | | [address] | | | | | | | [...]
--- OUTSIDE RECORDS SUMMARY | ~2019-02-27 | XMS | Encounter Summary ---
Demographics + + + | Address | [address] | | | [place] [address] | + + + | Home Phone [...] + | Aarti Hooks | ECON | [address] | | | | | [place] | | | | | [address] | | + + + + + Care Team Providers + +------+ + | Care Plant Tender Name | Role | Phone | [...] | | | MEDICAL CLIN[facility] [address] | [place], [place] | | | | | [address] [place], | [address] | | | | | [place] [address] | [phone] | | | | | [phone] | | | +--------+--------+ + + + [...] | | | | | [place], [place] | | | | | | [address] | | | | | | | | +--------+---------+ + + + documented as of this encounter Visit Diagnoses Not on filedocumented in this encounter"
--- OUTSIDE RECORDS SUMMARY | ~2019-02-27 | XMS | Encounter Summary ---
Demographics + + + | Address | [address] | | | [place] [address] | + + + | Home Phone [...] + | Aarti Hooks | ECON | [address] | | | | | [place] | | | | | [address] | | + + + + + Care Team Providers + +------+ + | Care Restaurant Culinary Manager Name | Role | Phone | [...] + | 02/10/ | Procedure | [facility] | | Presence of single | | 2019 | visit | [facility] [place] | | chamber automatic | | | | [address] | | cardioverter/defibri | | | | [address] | | llator (AICD) | | | | [place], [place] | | | | | | [address] | | | | | | [phone] | | | +--------+ + + + [...] | | | | | [place] | | | | | | [address] | | | | | | | [...] PACEART | | NIKITA Salinas 02/18/2019 9:30 [facility] INTERROGATION REPORT Name: | | | Adis [place] PCP: Raul Pate DO : 1960MRN: | | | [id number] Primary cardiology provider: Toni [place] Primary | | | electrophysiology provider: None Device senior microsoft net developer: [employer] | | | Device type: Single chamber [...] | | Gio Pate DO : 1960MRN: [id number] Primary cardiology provider: Toni | | [facility] Primary electrophysiology provider: Polly Device senior microsoft net developer: [employer] Mobile[employer] | | type: Single chamber (Ventricular)Battery Longevity: [...]
--- OUTSIDE RECORDS SUMMARY | ~2019-02-27 | XMS | Encounter Summary ---
Demographics + + + | Address | [address] | | | [place] [address] | + + + | Home Phone | | + + + | Preferred Language | Unknown | + + + | Marital Status | | + + + | Sabianism Affiliation | 1077 | + + + | Race | Unknown | + + + | Ethnic Group | Unknown | + + + Author + + + | Author | [facility] | | | and [place] | + + + | Organization | [facility] | | | and [place] | + + + | Address | Unknown | + + + | Phone | Unavailable | + + + Support + + + + + | Name | Relationship | Address | Phone | + + + + + | Aarti Hooks | ECON | [address] | | | | | [place] | | | | | [address] | | + + + + + Care Team Providers + +------+ + | Care Traffic Ii Manager Name | Role | Phone | [...] 2014 | | GASTROENTEROLOGY | [address], [place] | | | | | [address] [place] | [address] [place], [place] | | | | | [address] [place], [place] | [address] | | | | | [address] | | | | | | [phone] | | | +--------+ + + + [...] [place] | | | | | | [address] | | | | | | | | +--------+---------+ + + + documented as of this encounter Visit Diagnoses Not on filedocumented in this encounter
--- OUTSIDE RECORDS SUMMARY | ~2019-02-27 | XMS | Encounter Summary ---
Demographics + + + | Address | [address] | | | [place] [address] | + + + | Home Phone | | + + + | Preferred Language | Unknown | + + + | Marital Status | | + + + | Mu-Ism Affiliation | 1077 | + + + | Race | Unknown | + + + | Ethnic Group | Unknown | + + + Author + + + | Author | [facility] | | | and [place] | + + + | Organization | [facility] | | | and [place] | + + + | Address | Unknown | + + + | Phone | Unavailable | + + + Support + + + + + | Name | Relationship | Address | Phone | + + + + + | Aarti Hooks | ECON | [address] | | | | | [place] | | | | | [address] | | + + + + + Care Team Providers + +------+ + | Care Carbon Brusher Assembler Name | Role | Phone | [...] | | | MEDICAL CLIN[facility] [address] | [place], [place] | | | | | [address] [place], | [address] | | | | | [place] [address] | [phone] | | | | | [phone] | | | +--------+--------+ + + + [...] [place] | | | | | | [address] | | | | | | | | +--------+---------+ + + + documented as of this encounter Visit Diagnoses Not on filedocumented in this encounter"
--- OUTSIDE RECORDS SUMMARY | ~2019-02-27 | XMS | Encounter Summary ---
Demographics + + + | Address | [address] | | | [place] [address] | + + + | Home Phone [...] + | Aarti Hooks | ECON | [address] | | | | | [place] | | | | | [address] | | + + + + + Care Team Providers + +------+ + | Care High [employer] Coordinator Name | Role | Phone | [...] + + | 11/04/ | Procedure | [facility] | | Presence of single | | 2019 | visit | [facility] [place] | | chamber automatic | | | | [address] | | cardioverter/defibri | | | | [address] | | llator (AICD) | | | | [place], [place] | | (Primary Dx) | | | | [address] | | | | | | [phone] | | | +--------+ + + + [...] [place] | | | | | | [address] | | | | | | | [...] Sheets PCP: Raul Pate DO : [id number]: [id number] | | | Primary cardiology provider: Toni Durand Primary | | | electrophysiology provider: None Device protective signal repairer helper: [employer] | | | Device type: Single chamber [...]
--- OUTSIDE RECORDS SUMMARY | ~2019-02-27 | XMS | Encounter Summary ---
Demographics + + + | Address | [address] | | | [place] [address] | + + + | Home Phone [...] + | Aarti Sheets | ECON | [id number] | | | | | [place] | | | | | [address] | | + + + + + Care Team Providers + +------+ + | Care Clinical Documentation Clerk Name | Role | Phone | + +------+ + PCP | Unavailable | + +------+ + Encounter Details +--------+ + + + + | Date | Type | Department | Care Team | Description | +--------+ + + + + | 10/13/ | Hospital | [facility] | | | | 1995 - | Encounter | MED CTR GENERIC IP | | | | | | CONV DEPT [address] | | | | 08/15/ | | [place], | | | | 1995 | | [place] [address] | | | | | | [phone] | | | +--------+ + + + [...] | | | | | [place] | | | | | | [address] | | | | | | | | +--------+---------+ + + + documented as of this encounter Visit Diagnoses Not on filedocumented in this encounter"
--- OUTSIDE RECORDS SUMMARY | ~2019-02-27 | XMS | Encounter Summary ---
Demographics + + + | Address | [address] | | | [place] [address] | + + + | Home Phone [...] + | Aarti Sheets | ECON | [address] | | | | | [place] | | | | | [address] | | + + + + + Care Team Providers + +------+ + | Care Supervisor White Sugar Name | Role | Phone | + +------+ + PCP | Unavailable | + +------+ + Encounter Details +--------+ + + + + | Date | Type | Department | Care Team | Description | +--------+ + + + + | 03/30/ | Hospital | [facility] | Oneal Cuenca MD | | | 1998 - | Encounter | MED CTR MED ONC | [address] | | | | | [address] [place] | [place] | | | 04/07/ | | [place] [address] | [address] | | | 1998 | | [phone] | | | +--------+ + + + [...] [place] | | | | | | [address] | | | | | | | | +--------+---------+ + + + documented as of this encounter Visit Diagnoses Not on filedocumented in this encounter"
--- OUTSIDE RECORDS SUMMARY | ~2019-02-27 | XMS | Encounter Summary ---
Demographics + + + | Address | [address] | | | [place] [address] | + + + | Home Phone [...] + | Aarti Hooks | ECON | [address] | | | | | [place] | | | | | [address] | | + + + + + Care Team Providers + +------+ + | Care Talent Consultant Name | Role | Phone | [...] + + | 02/10/ | Procedure | [facility] | | Presence of single | | 2019 | visit | [facility] [place] | | chamber automatic | | | | [address] | | cardioverter/defibri | | | | [address] | | llator (AICD) | | | | [place], [place] | | | | | | [address] | | | | | | [phone] | | | +--------+ + + + [...] | | | | | [place] | | | | | | [address] | | | | | | | [...] PACEART | | NIKITA Salinas 02/18/2019 9:30 [facility] INTERROGATION REPORT Name: | | | Adis Hooks PCP: Raul Pate DO : 1960MRN: | | | [id number] Primary cardiology provider: Toni [place] Primary | | | electrophysiology provider: None Device engineering mechanic: Zappli | | | Device type: Single chamber [...] | | Gio Pate DO : 1960MRN: [id number] Primary cardiology provider: Toni | | [facility] Primary electrophysiology provider: Polly Device engineering mechanic: ZappliDeCegale | | type: Single chamber (Ventricular)Battery Longevity: [...]
--- OUTSIDE RECORDS SUMMARY | ~2019-02-27 | XMS | Encounter Summary ---
Demographics + + + | Address | [address] | | | [place] [address] | + + + | Home Phone [...] + | Aarti Hooks | ECON | [address] | | | | | [place] | | | | | [address] | | + + + + + Care Team Providers + +------+ + | Care Weblogic Developer Name | Role | Phone | [...] | | | [facility] | [place], [place] | | | | | [address] [place], | [address] | | | | | [place] [address] | [phone] | | | | | [phone] | | | +--------+--------+ + + + [...] [place] | | | | | | [address] | | | | | | | | +--------+---------+ + + + documented as of this encounter Visit Diagnoses Not on filedocumented in this encounter"
--- OUTSIDE RECORDS SUMMARY | ~2019-02-27 | XMS | Encounter Summary ---
Demographics + + + | Address | [address] | | | [place] [address] | + + + | Home Phone [...] + | Aarti Hooks | ECON | [address] | | | | | [place] | | | | | [address] | | + + + + + Care Team Providers + +------+ + | Care Lending Advisor Name | Role | Phone | [...] | | | [facility] | [place], [place] | | | | | [address] [place], | [address] | | | | | [place] [address] | [phone] | | | | | [phone] | | | +--------+--------+ + + + [...] | | | | | [place], [place] | | | | | | [address] | | | | | | | | +--------+---------+ + + + documented as of this encounter Visit Diagnoses + + | Diagnosis | + + | Allergic rhinitis due to other allergic trigger, unspecified seasonality | + + documented in this encounter"
--- OUTSIDE RECORDS SUMMARY | ~2019-02-27 | XMS | Encounter Summary ---
Demographics + + + | Address | [address] | | | [place] [address] | + + + | Home Phone [...] + | Aarti Hooks | ECON | [address] | | | | | [place] | | | | | [address] | | + + + + + Care Team Providers + +------+ + | Care Finance Accounting Internship Name | Role | Phone | + [...] | | | [facility] | [place], [place] | | | | | [address] [place], | [address] | | | | | [place] [address] | [phone] | | | | | [phone] | | | +--------+--------+ + + + [...] [place] | | | | | | [address] | | | | | | | | +--------+---------+ + + + documented as of this encounter Visit Diagnoses Not on filedocumented in this encounter"
--- OUTSIDE RECORDS SUMMARY | ~2019-02-27 | XMS | Encounter Summary ---
Demographics + + + | Address | [address] | | | [place] [address] | + + + | Home Phone | | + + + | Preferred Language | Unknown | + + + | Marital Status | | + + + | Quaker Affiliation | 1077 | + + + | Race | Unknown | + + + | Ethnic Group | Unknown | + + + Author + + + | Author | [facility] | | | and [place] | + + + | Organization | [facility] | | | and [place] | + + + | Address | Unknown | + + + | Phone | Unavailable | + + + Support + + + + + | Name | Relationship | Address | Phone | + + + + + | Aarti Hooks | ECON | [address] | | | | | [place] | | | | | [address] | | + + + + + Care Team Providers + +------+ + | Care Drafter Geological Name | Role | Phone | + [...] | 2018 | | [facility] | CC SUPERVISOR METALIZING | | | | | [facility] | | | | | | [address]TH [facility], | | | | | | [place] [address] | | | | | | [phone] | | | +--------+--------+ + + + [...] [place] | | | | | | [address] | | | | | | | | +--------+---------+ + + + documented as of this encounter Visit Diagnoses Not on filedocumented in this encounter"
--- OUTSIDE RECORDS SUMMARY | ~2019-02-27 | XMS | Encounter Summary ---
Demographics + + + | Address | [address] | | | [place] [address] | + + + | Home Phone [...] | [facility] | | | and [place] | + [...] + | Aarti Hooks | ECON | [address] | | | | | [place] | | | | | [address] | | + + + + + Care Team Providers + +------+ + | Care Kitchen Designer Name | Role | Phone | [...] | | | | [place], [place] | [address] | | | | | [address] | [phone] | | | | | [phone] | | | +--------+ + + + [...] [place] | | | | | | [address] | | | | | | | [...]
--- OUTSIDE RECORDS SUMMARY | ~2019-02-27 | XMS | Encounter Summary ---
Demographics + + + | Address | [address] | | | [place] [address] | + + + | Home Phone [...] + | Aarti Hooks | ECON | [address] | | | | | [place] | | | | | [address] | | + + + + + Care Team Providers + +------+ + | Care Chimney Mechanic Name | Role | Phone | [...] [facility] | CC STONE OPERATOR | Pre-fill | | | | [facility] [address] | | | | | | [address] [facility], | | | | | | [place] [address] | | | | | | [phone] | | | +--------+--------+ + + + [...] [place] | | | | | | [address] | | | | | | | | +--------+---------+ + + + documented as of this encounter Visit Diagnoses Not on filedocumented in this encounter"
[~2019-02-27 20:33] MED LIST: ATENOLOL50 MG PO; FINASTERIDE5 MG PO; GABAPENTIN100 MG PO; NORCO 7.5-3251 EACH PO; ONDANSETRON ODT8 MG PO; SUDOGEST30 MG PO; TAMSULOSIN HCL0.4 MG PO
--- OUTSIDE RECORDS SUMMARY | 2019-02-27 20:38 | XMS ---
PreManage Notification: RITA KLINE Security [employer] Events No recent Security Events currently on file CRITERIA MET - [facility] - Visits in 30 Days CARE PROVIDERS JOHNATHAN GOTTLIEB [facility] Current PHONE: Unknown Rosa Finch PA-C Treatment Current PHONE: Unknown Perla has no Care Guidelines for this patient. Renato VISIT COUNT (12 MO.) [address] [place] [address] TOTAL 2 NOTE: Visits indicate total known visits. ED/UCC VISIT TRACKING (12 MO.) 02/27/2019 20:35 [facility] [place] TYPE: Emergency COMPLAINT: - BLOOD IN URINE 02/27/2019 16:40 [facility] [place] TYPE: Emergency COMPLAINT: - RIB PAIN/ INJ, SOB INPATIENT VISIT TRACKING (12 MO.) No inpatient visits to display in this time frame [email or web address]
[2019-02-27] MEDS ORDERED: NEURONTIN100 MG PO (21:11)
[2019-02-27] MEDS ORDERED: MULTI VITAMIN1 EACH PO (21:11)
--- NOTE | 2019-02-28 01:54 | NUR ---
HELPED TP GET PT INTO BED. VITALS DONE AND CHARTED WELL BED WEIGHT. BEDSIDE TABLE AND CALL LIGHT IN REACH.
--- NOTE | 2019-02-28 02:00 | NUR ---
pt ARRIVED. NIKITA GALLARDO ASSISTING WITH ADMISSION.
--- NOTE | 2019-02-28 02:30 | NUR ---
pt RESTING IN BED. FAMILY AT BEDSIDE. ASSESSMENT DONE. pt REPORTING 4/10 PAIN "IT'S OKAY RIGHT NOW" WILL CALL IF PAIN INCREASES. QUESTIONS ANSWERED. CALL LIGHT WITHIN REACH.
--- NOTE | 2019-02-28 03:57 | NUR ---
pt REPORTING 8/10 PAIN POST STANDING TO VOID. PER REPORT URINE YELLOW AND CONCENTRATED. HR INCREASED TO 120-130 WHILE MOVING PER CALL FROM CCU. PRN PAIN MED GIVEN (SEE MAR). HR 100'S-90'S WHILE LAYING IN BED. DENIES LIGHTHEADNESS OR BEING DIZZY AT THIS TIME. DENIED PALPITATIONS. PRN NAUSEA MEDICATION GIVEN (SEE MAR). NO FURTHER REQUESTS AT THIS TIME. CALL LIGHT WITHIN REACH. AT BEDSIDE.
--- NOTE | 2019-02-28 05:35 | NUR ---
pt RESTING WITH EYES CLOSED, SNORING. RESPIRATIONS REGULAR AND UNLABORED. CALL LIGHT WITHIN REACH. AT BEDSIDE.
--- NOTE | 2019-02-28 06:13 | NUR ---
pt ARRIVED FROM ED. PAIN CONTROLLED WITH PRN IV MEDS. IVF INFUSING. TELE 6, SR RESTING HR 90'S-100'S. WHEN UP HR IN 130'S-140'S. URINE CONCENTRATED YELLOW. REMAINED AT BEDSIDE DURING SHIFT. PRN NAUSEA MEDS X1. USES CALL LIGHTAPPROPRIATELY.
--- NOTE | 2019-02-28 07:29 | NUR ---
BEDSIDE REPORT RECEIVED FROM SOLO SHELTON. WHITE BOARD UPDATED. PATIENT AWAKE WITH SIGNIFICANT OTHER AT BEDSIDE. REPORTS SOME PAIN, BUT DENIES WANT FOR PAIN MEDS. NO NAUSEA. NO BLOOD IN URINE. NPO AT THIS TIME. LABS TO BE DRAWN SOON.
--- NOTE | 2019-02-28 07:47 | NUR ---
PATIENT RESTING IN BED, COMPLAINS OF PAIN AT AN 8 OUT OF 10 AND NAUSEA. RN NOTIFIED. AM CARE SET UP IN BATHROOM FOR USE AT A LATER TIME. CALL LIGHT IN REACH. NO OTHER NEEDS AT THIS TIME.
--- NOTE | 2019-02-28 11:00 | NUR ---
EDUCATED PATIENT ON INCENTIVE SPIROMETRY USE. SET UP SCDs FOR PATIENT TO WEAR WHEN LYING BED. PATIENT AMBULATED IN HALLS WITH FAMILY STANDBY. GAIT STEADY. INDEPENDENT IN ROOM. NO OTHER NEEDS AT THIS TIME. DEMONSTRATED INCENTIVE SPIROMETRY 3 TIMES AT LEVEL 1500 ON I/S.
--- NOTE | 2019-02-28 12:12 | NUR ---
Medications reconciled using pharmacy records and patient interview
--- NOTE | 2019-02-28 14:06 | NUR ---
PATIENT REPORTS GREAT PAIN CONTROL AFTER IBUPROFEN PO AND IV TYLENOL. STARTED SCHEDULED TYLENOL AT 1400. NO PAIN REPORTED AT THIS TIME. SON AT BEDSIDE ASSISTING WITH NEEDS. LAB IN TO DRAW BLOOD.
--- NOTE | 2019-02-28 15:45 | NUR ---
CALL LIGHT ANSWERED. PATIENT USING THE URINAL. VISITOR IN ROOM. PATIENT BACKS TO BED. EMPTY URINAL. CALL LIGHT WITHIN REACH. NO OTHER NEEDS AT THIS TIME.
--- NOTE | 2019-02-28 17:24 | NUR ---
PATIENT AMBULATING IN THE HALLWAY
--- NOTE | 2019-02-28 17:51 | NUR ---
PATIENT RESTING IN BED. FAMILY IN ROOM. VITAL SIGNS AND I&O DONE. CALL LIGHT WITHIN REACH. NO OTHER NEEDS AT THIS TIME
--- NOTE | 2019-02-28 17:56 | NUR ---
HGB 10.9, HGB 32 AT 1400 LAB DRAW. AMBULATES INDEPENDENTLY. LR @ 125ML/HR IN RIGHT HAND. RAC IV S/L. REGULAR DIET. TELE 6. SINUS RHYTHM. NO BLOOD IN URINE THROUGHOUT THE DAY. PAIN WELL CONTROLLED WITH TYLENOL AND IBUPROFEN. NAUSEA IMPROVED FROM THIS MORNING. URINALYSIS NEEDED TO BE COLLECTED ON 03/01/19. WATCH FOR BLEEDING IN URINE. SON AT BEDSIDE. PATIENT SHOWERED TODAY.
--- NOTE | 2019-02-28 19:11 | NUR ---
RECEIVED REPORT FROM NIKITA WINKLER. pt RESTING IN BED, FAMILY AT BEDSIDE. NO REQUESTS AT THIS TIME. CALL LIGHT WITHIN REACH. WHITEBOARD UPDATED. PAIN "OKAY" AT THIS TIME.
--- NOTE | 2019-02-28 19:20 | NUR ---
ROUNDED CHARGE. PATIENT IS RESTING IN BED WITH EYES CLOSED, RR 18. CALL LIGHT IN REACH.
--- NOTE | 2019-02-28 20:10 | NUR ---
CALL LIGHT ON. pt REQUESTED SOMETHING "FOR GAS" ENCOURAGED AMBULATION AND WILL REASSESS. pt AGREEABLE. pt REPORTED 4/10 PAIN, PRN PAIN MED GIVEN WITH SCHEDULED MEDS (SEE MAR). ASSESSMENT DONE. pt UP AMBULATING IN [place] WITH BY SIDE.
--- NOTE | 2019-02-28 22:00 | NUR ---
VITALS AND I&O RECORDED. pt REPORTED DECREASED PAIN. SCHEDULED PAIN MEDICATION GIVEN (SEE MAR). NO REQUESTS AT THIS TIME. CALL LIGHT WITHIN REACH.
--- NOTE | 2019-03-01 00:17 | NUR ---
ROUNDED ON pt. RESTING WITH EYES CLOSED, RESPIRATIONS REGULAR AND UNLABORED. CALL LIGHT WITHIN REACH.
--- NOTE | 2019-03-01 01:45 | NUR ---
CALL LIGHT ON. IV PUMP BEEPING, NEW BAG OF IVF HUNG (SEE MAR). ASSESSMENT DONE. pt STATE "MY PAIN IS FINE RIGHT NOW" VITALS AND I&O RECORDED. WARM BLANKET PROVIDED. NO FURTHER REQUESTS AT THIS TIME. CALL LIGHT WITHIN REACH.
--- NOTE | 2019-03-01 04:09 | NUR ---
ROUNDED ON pt. RESTING WITH EYES CLOSED, RESPIRATIONS REGULAR AND UNLABORED. CALL LIGHT WITHIN REACH.
--- NOTE | 2019-03-01 05:00 | NUR ---
VITALS AND I&OS DONE AND CHARTED. URINE SAMPLE TAKEN AND SENT TO LAB. FRESH ICE WATER GIVEN. BEDSIDE TABLE AND CALL LIGHT IN REACH. PT NEEDS NOTHING MORE AT THIS TIME.
--- NOTE | 2019-03-01 07:44 | NUR ---
BEDSIDE REPORT RECEIVED FROM SOLO SHELTON. PATIENT SLEEPING AT THIS TIME. IVF INFUSING AT 125. HGB 9.8 HCT 28.3. NO BLOOD IN URINE OVERNIGHT. PAIN WELL CONTROLLED WITH SCHEDULED TYLENOL. REPORTS MORE SORENESS RATHER THAN PAIN NOW.
--- NOTE | 2019-03-01 08:26 | NUR ---
pt ambulating halls independently now. no pain reported. states "i'm ready to go home".
--- NOTE | 2019-03-01 10:28 | NUR ---
PATIENT IN CHAIR, IN ROOM. FRESH WATER GIVEN. CALL LIGHT IN REACH. NO FURTHER NEEDS AT THIS TIME. PATIENT IND IN ROOM.
--- NOTE | 2019-03-01 12:25 | NUR ---
PT SITTING IN CHAIR, VISITING WITH [place]. PT FEELING BETTER, HOPES TO BE DC'D TODAY. HAD GOOD VISIT, DR MOTA IN. I EXTENDED A BLESSING, WILL FOLLOW NEEDED
--- NOTE | 2019-03-01 13:44 | NUR ---
PATIENT IN BED WATCHING TV. FRESH WATER GIVEN. IN ROOM. CALL LIGHT IN REACH. NO FURTHER NEEDS AT THIS TIME.
--- NOTE | 2019-03-01 16:16 | NUR ---
In and spoke with pt and his . Plans to go home today following lab draw if HCT has not dropped. Denies needs at home. He is active and denies needs for safe dc.
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
--- NOTE | 2019-03-01 17:24 | NUR ---
VISITED WITH PT, , AND ANOTHER MALE IN THE ROOM. PT STATES UNDERSTANDING OF HIS INJURY AND SIGNS AND SX TO WATCH FOR. INFORMATION ON KIDNEY INJURY GIVEN TO PT. PT ANSWER EVERYTHING WITH YEAH I KNOW, YEAH I KNOW. PT THEN HANDED PAPER TO AND SAID TAKE THIS WITH THE REST OF THE PAPERS THAT YOU TOOK HOME.
--- NOTE | 2019-03-01 18:02 | NUR ---
HCT DROPPED TO 26.1 AT 1600. PLAN TO STAY OVERNIGHT AND CHECK LABS IN THE MORNING. SURGERY CONSENT ON CHART IN CASE HE NEEDS SURGERY TOMORROW. SOME NAUSEA REPORTED THIS AFTERNOON, BUT RESOLVED ON OWN. IBUPROFEN GIVEN ONCE WITH SCHEDULED TYLENOL FOR INCREASED PAIN. SOME BRUISING NOTED TO LEFT FLANK. URINE CONTINUES TO HAVE NO VISIBLE BLOOD.
--- NOTE | 2019-03-01 18:28 | NUR ---
PATIENT IN BED RESTING, IN ROOM. CALL LIGHT IN REACH. NO FURTHER NEEDS AT THIS TIME.
--- NOTE | 2019-03-01 19:00 | NUR ---
BEDSIDE REPORT RECEIVED FROM NIKITA WINKLER. pt RESTING IN BED. AT BEDSIDE. CALL LIGHT IN REACH. SPRITE PROVIDED REQUESTED.
--- NOTE | 2019-03-01 21:30 | NUR ---
PT REQUESTED AND RECEIVED ICE PACK FOR COMFORT.
--- NOTE | 2019-03-01 22:00 | NUR ---
pt AWAKENS TO VOICE. SCHEDULED MEDICATIONS ADMINISTERED. pt DENIES PAIN AT REST. ICE PACK IN PLACE FOR LEFT SIDE. ASSESSMENT COMPLETE. VSS. pt VERBALIZES UNDERSTANDING TO VOID IN URINAL OR URINE HAT FOR ALL VOIDS. URINAL EMPTIED. CALL LIGHT IN REACH. ICE WATER PROVIDED.
--- NOTE | 2019-03-02 00:50 | NUR ---
pt OUT OF BED, AMBULATING INDEPENDENTLY IN THE HALLWAY. DENIES PAIN. NO REQUESTS AT THIS TIME.
--- NOTE | 2019-03-02 02:20 | NUR ---
ANSWERED CALL LIGHT. REGULAR [place] PROVIDED. EMPTIED URINAL. NO OTHER NEEDS AT THIS TIME.
--- NOTE | 2019-03-02 05:48 | NUR ---
pt UP AMBULATING IN HALLWAY THIS SHIFT. SCHEDULED PAIN MEDICATIONS, ICE PACK FOR LEFT SIDE PAIN. INDEPENDENT IN ROOM. VOIDING QS. IV SITES SL. VSS.
--- NOTE | 2019-03-02 07:18 | NUR ---
REPORT RECEIVED FROM NIKITA SKINNER. PT RESTING IN BED WATCHING TV. PT REPORTS 1/10 PAIN AND DENIES NAUSEA. URINAL EMPTIED OF 200ML CLEAR YELLOW URINE. NO ADDITIONAL REQUSTS OR COMPLAINTS AT THIS TIME. CALL LIGHT WITHIN REACH.
--- NOTE | 2019-03-02 08:32 | NUR ---
MD CALLED AND UPDATED REGARDING LAB VALUES. VERBAL ORDERS TO ADMINISTER 2 UNITS [facility]'S. CONSENT SIGNED AND ON CHART. MD STATES TO UPDATE PATIENT. PT UPDATED ON PLAN OF CARE. PT AGREES TO TWO UNITS [facility]BRC'S. ORDER PLACED. LAB NOTITIFED.
--- NOTE | 2019-03-02 09:14 | NUR ---
MORNING ASSESSMENT AND MEDICAITON DUE. PT ANTICIPATING 2 UNITES OF BLOOD. BLOOD OBTAINED FROM LAB. ASSESSMENT DONE. LARGE CONTUSION CONTINUES ON LEFT SIDE. PT REPORTS 3/10 PAIN AND DENIES NEED FOR PAIN MEDICATION AT THIS TIME. PT ALSO REPORTS HEADACHE AT 3/10, FAHAD PROVIDED PER PT REQUEST. HYPOACTIVE BOWEL SOUNDS NOTED. PT REPORTS CONSTIPATION. WILL CONSULT MD. UNIT OF BLOOD ARRIVED. CHECK BY THIS RN AND NIKITA TRUONG. UNIT STARTED PER PROTCOL AT A RATE OF 120ML/HR. THIS RN AT BEDSIDE FOR FIRST 15 MINUTES OF INFUION. NO S/S OF INFUSION REACTION NOTED. RATE INCREASED TO 150ML/HR. MEDICATION GIVEN. I.S USE DEMONSTRATED, PT REACHES 1500ML. FAMILY AT BEDSIDE, CALL LIGHT WITHIN REACH. NO ADDITIONAL REQUESTS OR COMPLAINTS AT THIS TIME.
--- NOTE | 2019-03-02 10:00 | NUR ---
PT CALL LIGHT ON. PT REPORTS MILD DISCOMFORT AT IV SITE. PIV ASSESSED. WNL. NO REDNESS OR SWELLING NOTED. WARM BLANKET APPLIED TO SITE. PT REPORTS DISCOMFORT IS ALLEVIATED. NO ADDITIONAL REQUESTS OR COMPLAINTS AT THIS TIME. CALL LIGHT WITHIN REACH.
--- NOTE | 2019-03-02 10:43 | NUR ---
PATIENT IN CHAIR READY TO GO BACK TO BED. LINENS CHANGED. RN IN ROOM. PATIENT NOW IN BED, VISITOR IN ROOM. CALL LIGHT IN REACH. NO FURTHER NEEDS AT THIS TIME.
--- NOTE | 2019-03-02 10:45 | NUR ---
PT CALL LIGHT ON. PT REQUESTS ASSISTANCE BACK TO BED. LINENS CHANGED. SBA BACK TO BED. PT REPORTS 2/10 PAIN AND DENIES NEED FOR PAIN MEDICATION AT THIS TIME. CALL LIGHT WITHIN REACH. FAMILY AT BEDSIDE.
--- NOTE | 2019-03-02 11:12 | NUR ---
PUMP ALARMING, BLOOD UNIT COMPLETE. LINE FLUSHED WITH 20ML NS. VITALS TAKEN. 2ND UNIT OBTAINED FROM LAB. NO S/S OF INFUSION REACTION. 2ND UNIT CHECK BY THIS RN AND NIKITA LUCIO. UNIT STARTED AT 120ML/HR PER PROTOCOL. THIS RN AT BEDSIDE FOR FIRST 15 MINUTES OF TRANSFUION. ASSESSMENT DONE. CONTUSION REMAINS ON LEFT SIDE. PT REPORTS 2/10 PAIN THAT "ISN'T THAT BAD." ICE PACK PROVIDED. PT REPORTS WARM BLANKET ON IV SITE HAS RESOLVED THE IV DISCOMFORT. PIV WNL. PT REPORTS BOWEL MOVEMENT BUT CONTINUES TO REPORT CONSTIPATION. LUNG SOUNDS CLEAR. IS USE DEMONSTRATED, REACHING 1500. PT PREVIOUSLY AMBULATED X2 LAPS IN [place]. PT ENCORUAGED TO CONTINUE TO AMBULATE. NO S/S OF INFUSION REACTION NOTED. RATE OF TRANSFUSION INCREASED TO 150ML/HR PER PROTOCOL.PT WATCING TV. NO ADDITIONAL REQUESTS OR COMPLAINTS AT THIS TIME. CALL LIGHT WITHIN REACH.
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
--- NOTE | 2019-03-02 13:05 | NUR ---
PUMP ALARMING, 2ND UNIT [facility] TRANSFUSTION AND FLUSH COMPLETE. PIV ASSESSED, WNL. SALINE LOCKED AT THIS TIME. VITALS TAKEN. LAB CALLED TO BEDSIDE FOR HEMATOCRITE DRAW. NO ADDITIONAL REQUESTS OR COMPLAINTS AT THIS TIME. CALL LIGHT WITHIN REACH. FAMILY AT BEDSIDE.
--- NOTE | 2019-03-02 13:52 | NUR ---
PT FAMILY TO NURSES STATION. PT FAMILY STATES PT IS "FEELING BLOATED AND REALLY TIGHT." THIS RN TO BEDSIDE. ASSESSMENT DONE. HYPOACTIVE BOWELTONES. TIGHT ABDOMEN. MD NOTIFIED. MD TO BEDSIDE. TAP WATER ENEMA ORDERED. PT STATES "I THINK ITS JUST GAS." TYLENOL GIVEN. FAMILY AT BEDSIDE. CALL LIGHT WITHIN REACH.
--- NOTE | 2019-03-02 14:20 | NUR ---
DR. CHEN CALLED. CT SCAN WITH GI AND IV CONTRAST ORDERED. IMAGING CALLED, FADY STATES TO GIVE 1 DOSE GASTROGRAPHIN NOW AND ONE DOSE IN 1 HOUR. 1ST DOSE GIVEN. PT VISITING WITH FAMILY. PIV COVERED FOR PT TO SHOWER. NO ADDITIONAL REQUESTS OR COMPLAINTS AT THIS TIME. CALL LIGHT WITHIN REACH.
--- NOTE | 2019-03-02 14:32 | NUR ---
PT ALITTLE ANXIOUS ABOUT WAITING FOR BLOOD WORK RESULTS. THIS WILL HELP DETERMINE IF PT NEEDS TO HAVE SURGERY. DECISION TO HAVE TRANSFUSION, THEN CT TO SEE IF SURGERY IS STILL WARRANTED. HAD PRAYER WITH PT AND HIS AND FAMILY. WILL FOLLOW NEEDED
--- NOTE | 2019-03-02 14:43 | NUR ---
PATIENT SITTING IN CHAIR, FAMILY IN ROOM. PATIENT WANTING TO SHOWER, IND. SHOWER SET UP FOR PATIENT. CALL LIGHT IN REACH. NO FURTHER NEEDS AT THIS TIME.
--- NOTE | 2019-03-02 15:15 | NUR ---
2ND GASTRO GRAPHIN ORDER DISCONTINUED BY ORDER FROM CT. ORDER DC'D. PT FINISHED WITH SHOWER AND BACK TO BED. PT REPORTS 4/10 DISCOMFORT AND STATES HIS ENERGY LEVEL IS LOW "IT'S ABOUT A 2 WHEN I'D SAY I'M NORMALLY A 30." CT ARRIVED. PT TRANSFERES SELF TO WHEELCHAIR. NO ADDITIONAL REQUESTS OR COMPLAINTS. FAMILY UPDATED. QUESTIONS ANSWERED. EXTENSIVE EDUCAITON DONE.
--- NOTE | 2019-03-02 15:58 | NUR ---
REPORT GIVEN TO NIKITA CASTILLO, WHO IS ASSUMING CARE OF PT. QUESTIONS ASKED AND ANSWERED.
--- NOTE | 2019-03-02 16:17 | NUR ---
RETURNED FROM CT, IN [facility], HOPES TO GO HOME.
--- NOTE | 2019-03-02 17:30 | NUR ---
PT RECIEVED I UNIT PRBC'S TODAY FOR HCT 25 AFTER INFUSION HCT 29.5. PT ALSO HAD CT DONE AND IS NOW WAITING FOR RESULTS, PT MAY BE ALLOWED TO GO HOME TONIGHT. PT REMAINS IN [facility], WALKING HALLWAY,DENIES ANY NEEDS.
[2019-03-02] MEDS ORDERED: IBUPROFEN600 MG PO (17:59)
[2019-03-02] MEDS ORDERED: TYLENOL EXTRA500 MG PO (18:00)
--- NOTE | 2019-03-02 18:28 | NUR ---
DR MOTA IN TO SEE PT AND WROTE DC ORDERS, REVIEWED MEDICATIONS, FOLLOWUP APPOINTMENT AND LAB TO BE DRAWN WITH PT AND . VERBALIZES UNDERSTANDING, DENIES ANY QUESTIONS, PHARMACIST IN TO TALK WITH PT .
== END 2019-03-02 18:20 | disposition home or self-care (01) | DRG 699 ==
LOC: ED 20:33 → MS 20:36
PROVIDERS: ADMIT Surgery
PROC: 30233N1 Transfusion of Nonautologous Red Blood Cells into Peripheral Vein, Percutaneous Approach (ICD-10-PCS; principal; 2019-03-02)
DX: S37.012A Minor contusion of left kidney, initial encounter (principal); S22.42XA Multiple fractures of ribs, left side, initial encounter for closed fracture; J98.11 Atelectasis; F15.11 Other stimulant abuse, in remission; N13.9 Obstructive and reflux uropathy, unspecified; V86.4 Person injured while boarding or alighting from special all-terrain or other off-road motor vehicle; Z79.899 Other long term (current) drug therapy; Z88.0 Allergy status to penicillin; Z88.5 Allergy status to narcotic agent; Z87.891 Personal history of nicotine dependence; Z86.74 Personal history of sudden cardiac arrest; Z95.810 Presence of automatic (implantable) cardiac defibrillator
CPT/HCPCS: 36415; 71260; 74177; 74178; 80053; 81001; 85014; 85025; 86850; 86900; 86901; 86920; 94760; 96361; 99285-25; A9270; J0131; J1170; J2405; J2550; J7030; J7121; Q9967

== ENCOUNTER 2021-02-12 16:26 | Emergency (ER) | payer OTHER ==
[~2021-02-12] VITALS: Ht 170.2 cm; Wt 96.2 kg
[~2021-02-12 16:26] MED LIST changes: +ALLER-TEC10 MG PO; +FLOMAX0.4 MG PO; +GLUCOSAMINE H1500 MG PO; +IBUPROFEN600 MG PO; +MOBIC15 MG PO; +MULTI VITAMIN1 EACH PO; +NEURONTIN100 MG PO; +TYLENOL EXTRA500 MG PO
--- OUTSIDE RECORDS SUMMARY | 2021-02-12 16:30 | XMS ---
PreManage Notification: RITA KLINE Security Room Attendants Events No recent Security Events currently on file CRITERIA MET - PDMP CARE PROVIDERS JOHNATHAN GOTTLIEB [facility] Current PHONE: Unknown Perla has no Care Guidelines for this patient. EMahamed VISIT COUNT (12 MO.) 1 VIGNESH Johnson TOTAL 1 NOTE: Visits indicate total known visits. ED/UCC VISIT TRACKING (12 MO.) 02/12/2021 16:27 VIGNESH Quintana [place] TYPE: Emergency COMPLAINT: - L KIDNEY PAIN INPATIENT VISIT TRACKING (12 MO.) No inpatient visits to display in this time frame [email or web address]
[2021-02-12] MEDS ORDERED: ZOFRAN4 MG PO (21:18)
[2021-02-12] MEDS ORDERED: HYDROCODON-ACE1 EA10 PO (21:18)
== END 2021-02-12 21:30 | disposition home or self-care (01) ==
LOC: ED 16:26
DX: N23 Unspecified renal colic (principal); Z87.891 Personal history of nicotine dependence; Z88.0 Allergy status to penicillin; Z88.5 Allergy status to narcotic agent; Z79.899 Other long term (current) drug therapy
CPT/HCPCS: 74176; 80053; 81001; 85025; 96374; 99284-25; A9270; J1885